=== PATIENT | female | born 1965 | race Caucasian/White ===

== ENCOUNTER 2021-05-16 19:19 | Observation (INO) | payer OTHER, SELFPAY ==
[2021-05-16] VITALS (8 sets, daily range): BP systolic 126–176; BP diastolic 54–77; PULSE 83–120; RESP 14–22; TEMP 39.1; O2SAT 95–96; BMI 27.1
--- NOTE | 2021-05-16 19:10 | ECG_ITS ---
APPROVED REPORT Exam: Resting ECG HR:121 bpm ECG Measurements Heart Rate 121 AXES NM 134 P 69 QRSd 66 QRS 71 QT 306 T 58 QTc 434 Conclusion Sinus tachycardia Otherwise normal ECG Electronically signed by : Joseph Gonzalez MD 05/18/2021 08:58:32
[2021-05-16 19:48] LABS: Coronavirus 19, PCR Not Detected (NotDetected); Influenza A, PCR Not Detected (NotDetected); Influenza B, PCR Not Detected (NotDetected)
[2021-05-16 19:51] LABS: Chloride 102 mmol/L (98-107)
--- NOTE | 2021-05-16 19:51 | XR_ITS ---
PROCEDURE INFORMATION: Exam: XR Chest Exam date and time: 05/16/2021 7:51 PM Age: 55 years old Clinical indication: Fever TECHNIQUE: Imaging protocol: XR of the chest. Views: 1 view. COMPARISON: No relevant prior studies available. FINDINGS: Lungs: Unremarkable. No consolidation. Pleural spaces: Unremarkable. No pleural effusion. No pneumothorax. Heart/Mediastinum: Unremarkable. No cardiomegaly. Bones/joints: Unremarkable. Other findings: Limited inspiration. Lordotic projection. IMPRESSION: No acute findings.
[2021-05-16 19:52] LABS: Potassium 5.6 mmoL/L (3.5-5.1); Sodium 132 mmol/L (136-145)
[2021-05-16 19:54] LABS: Alanine Aminotransferase 38 U/L (12-78); Amylase 52 U/L (30-110); Blood Urea Nitrogen 32 mg/dl (7-17); Creatinine Clearance Estimated 52 mL/min (50-200); Estimated Glomerular Filt Rate 39 ml/min (>60); GFR (African American) 47 ML/MIN (>60)
[2021-05-16 19:55] LABS: Albumin Level 3.9 g/dl (3.5-5.0); Alkaline Phosphatase 385 U/L (38-126); Anion Gap 17.6 mEq/L (5-15); Aspartate Amino Transferase 99 U/L (14-36); Bilirubin,Total 0.5 mg/dl (0.2-1.3); Calcium 9.1 mg/dl (8.4-10.2); Carbon Dioxide 18 mmol/L (22.0-30.0); Globulin 3.8 g/dL (1.3-3.2); Glucose 241 mg/dl (74-100); Lipase 208 U/L (23-300); Total Protein,Serum 7.7 g/dl (6.3-8.2)
[2021-05-16 20:11] LABS: Basophils % 0.2 % (0.1-2.0); Eosinophils # 0.1 K/mm3 (0.0-0.4); Eosinophils % 0.8 % (0.1-12.0); Hematocrit 31.5 % (37.0-47.0); Hemoglobin 9.9 g/dL (12.2-16.2); Lymphocytes # 1.1 K/mm3 (0.7-4.5); Lymphocytes % 6.4 % (10-50); Mean Corpuscular HGB Conc 31.3 g/dL (31.8-35.4); Mean Corpuscular Hemoglobin 26.3 pg (27.0-31.2); Monocytes # 0.5 K/mm3 (0.1-1.0); Neutrophils # 15.7 K/mm3 (1.8-7.8); Neutrophils % 89.6 % (37.0-80.0); Platelet Count 327 K/mm3 (142-424); Red Blood Count 3.75 M/mm3 (4.20-5.40); Red Cell Distribution Width 14.9 % (11.5-17.5); White Blood Count 17.5 K/mm3 (4.8-10.8)
[2021-05-16 20:14] LABS: MANUAL DIFFERENTIAL MANUAL DIFFERENTIAL (MANUAL DIFF)
[2021-05-16 20:15] LABS: Troponin I < 0.01 ng/ml (0.00-0.034)
[2021-05-16 20:23] LABS: Hypochromasia 1+; Lymphocytes % 7 % (10-50); Microcytosis 1+; Monocytes % 3 % (2-9); Neutrophils % 90 % (42-76); Platelet Estimate Normal; Total Cells Counted 100
[2021-05-16 21:16] LABS: Lactic Acid 0.6 mmol/L (0.7-2.1)
[2021-05-16 22:02] LABS: Microscopic, Urine URINE MICROSCOPIC (MICROSCOPIC)
[2021-05-16 22:03] LABS: Appearance,Urine CLEAR (Clear); Bilirubin,Urine Negative (Negative); Blood, Urine 3+ (Negative); Color,Urine YELLOW (Yellow); Glucose,Urine (UA) TRACE (Negative); Ketones,Urine TRACE (Negative); Leukocyte Esterase,Urine 2+ (Negative); Nitrate,Urine Negative (Negative); PH,Urine 5.5 (5.0-8.5); Protein,Urine 3+ (Negative); Specific Gravity, Urine 1.025 (1.005-1.030); Urobilinogen,Urine 0.2 EU/dl (0.2)
[2021-05-16 22:30] LABS: WBC,Urine TNTC #/hpf (0-3)
[2021-05-16 22:31] LABS: Bacteria,Urine 1+ /lpf
--- NOTE | 2021-05-16 23:03 | CT_ITS ---
PROCEDURE INFORMATION: Exam: CT Abdomen And Pelvis With Contrast Exam date and time: 05/16/2021 11:03 PM Age: 55 years old Clinical indication: Other: Hematuria; Additional info: Sepsis, hematuria TECHNIQUE: Imaging protocol: Computed tomography of the abdomen and pelvis with contrast. Radiation optimization: All CT scans at this facility use at least one of these dose optimization techniques: automated exposure control; mA and/or kV adjustment per patient size (includes targeted exams where dose is matched to clinical indication); or iterative reconstruction. Contrast material: ISOVUE; Contrast volume: 60 ml; Contrast route: IV; COMPARISON: CR XR CHEST PORTABLE 05/16/2021 8:53 PM FINDINGS: Lungs: No mass/infiltrate at either lung base. Minimal basilar atelectatic changes. No pleural effusion. Liver: The liver is normal in size and attenuation. No intrahepatic biliary dilitation. Gallbladder and bile ducts: Normal. No calcified stones. No ductal dilation. Gallbladder wall thickness is normal. Pancreas: Normal. No ductal dilation. Spleen: Normal. No splenomegaly. Adrenal glands: Normal. No mass. 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 Stomach and bowel: Unremarkable. No obstruction. No mucosal thickening. Small bowel mesentery is normal. Appendix: Unremarkable. Intraperitoneal space: Unremarkable. No free air. No significant fluid collection. Vasculature: Atheromatous calcification of the aorta , iliac, and femoral arteries noted. No abdominal aortic aneurysm. Lymph nodes: Unremarkable. No enlarged lymph nodes. Urinary bladder: The urinary bladder has a diffusely thickened wall. There is indistinctness of the serosal margin of the bladder. These findings are most compatible with diffuse cystitis. There is no evidence of mural nodularity along the lumen of the bladder. Reproductive: Uterus is not enlarged. It is retroverted. There are small calcifications identified within the substance of the uterus which could either be vascular calcifications or calcific degeneration within small uterine fibroids. Bones/joints: Unremarkable. No acute fracture. Soft tissues: Small umbilical hernia noted. IMPRESSION: 1. Diffuse thickening of the bladder wall which could be on the basis of a cystitis. No evidence of mural thickening along the mucosal surface. 2. Horseshoe kidney identified. 3. Small umbilical hernia.
[2021-05-16 23:47] LABS: Troponin I 0.01 ng/ml (0.00-0.034)
[2021-05-17] VITALS (7 sets, daily range): BP systolic 116–157; BP diastolic 62–73; PULSE 70–88; RESP 14–20; TEMP 36.2–37.2; O2SAT 97–99; BMI 25.8
--- NOTE | 2021-05-17 00:12 | PC.NURSE ---
Dr. Martínez s/w Dr. Das
--- NOTE | 2021-05-17 00:14 | HMH.EDGENADL ---
ED Disposition Clinical Impression: Sepsis Qualifiers: Sepsis type: sepsis due to unspecified organism Sepsis acute organ dysfunction status: with acute organ dysfunction Severe sepsis acute organ dysfunction type: acute renal failure Acute renal failure type: unspecified Severe sepsis shock status: without septic shock Qualified Code(s): A41.9 - Sepsis, unspecified organism UTI (urinary tract infection) Qualifiers: Urinary tract infection type: acute cystitis Hematuria presence: with hematuria Qualified Code(s): N30.01 - Acute cystitis with hematuria Disposition: Admitted As Inpatient Condition on Discharge: Fair Time of Disposition: 00:15 - Critical Care Critical Care Time: No Attestation: On 05/16/21, the high probability of a clinically significant, sudden or life threatening deterioration of the following system(s) required my full and direct attention, intervention and personal management. The time I documented below is in addition to time spent performing reported procedures but includes the following listed in this critical care notation. Medical Decision Making - Medical Records Medical records reviewed: Yes: I reviewed the patient's medical records. - Lauro Inquiry Pt receiving controlled substance: No Vital Signs: 05/16/21 19:17 05/16/21 20:00 05/16/21 20:30 Temperature 102.4 F H Temperature Source Oral Pulse Rate 104 H 97 H Pulse Rate [Right] 120 H Respiratory Rate 19 22 21 Blood Pressure 142/63 H 135/61 Blood Pressure [Right Arm] 176/77 H Blood Pressure Mean Blood Pressure Mean [Right Arm] 110 Blood Pressure Source [Right Arm] Automatic Cuff 02 Sat by Pulse Oximetry 96 95 96 Oxygen Delivery Method Room Air Room Air 05/16/21 21:00 05/16/21 21:43 05/16/21 22:00 Temperature Temperature Source Pulse Rate 93 H 87 87 Pulse Rate [Right] Respiratory Rate 20 17 21 Blood Pressure 126/54 L 132/63 136/61 Blood Pressure [Right Arm] Blood Pressure Mean Blood Pressure Mean [Right Arm] Blood Pressure Source [Right Arm] 02 Sat by Pulse Oximetry 95 96 95 Oxygen Delivery Method Room Air 05/16/21 22:30 05/16/21 23:00 05/17/21 00:00 Temperature 99.0 F Temperature Source Oral Pulse Rate 87 83 73 Pulse Rate [Right] Respiratory Rate 14 15 14 Blood Pressure 138/67 132/66 133/65 Blood Pressure [Right Arm] Blood Pressure Mean 94 Blood Pressure Mean [Right Arm] Blood Pressure Source [Right Arm] 02 Sat by Pulse Oximetry 96 96 97 Oxygen Delivery Method Room Air Room Air 05/17/21 00:52 Temperature 99.0 F Temperature Source Oral Pulse Rate 74 Pulse Rate [Right] Respiratory Rate 15 Blood Pressure 116/62 Blood Pressure [Right Arm] Blood Pressure Mean Blood Pressure Mean [Right Arm] Blood Pressure Source [Right Arm] 02 Sat by Pulse Oximetry Oxygen Delivery Method Room Air - Lab Data Lab results reviewed: Yes: I reviewed the patient's lab results. Lab Results 05/16/21 19:25: WBC 17.5 H, RBC 3.75 L, Hgb 9.9 L, Hct 31.5 L, MCV 84.0, MCH 26.3 L, MCHC 31.3 L, RDW 14.9, Plt Count 327, MPV 9.0, Neut % (Auto) 89.6 H, Lymph % (Auto) 6.4 L, [place] % (Auto) 3.0, Eos % (Auto) 0.8, Baso % (Auto) 0.2, Neut # (Auto) 15.7 H, Lymph # (Auto) 1.1, [place] # (Auto) 0.5, Eos # (Auto) 0.1, Baso # (Auto) 0.0, Total Counted 100, Neutrophils % (Manual) 90 H, Lymphocytes % (Manual) 7 L, Monocytes % (Manual) 3, Platelet Estimate Normal, Hypochromasia 1+, Microcytosis 1+ 05/16/21 19:25: Sodium 132 L, Potassium 5.6 H, Chloride 102, Carbon Dioxide 18 L, Anion Gap 17.6 H, BUN 32 H, Creatinine 1.40 H, Estimated Creat Clear 52, Estimated GFR 39 L, Est GFR ( Amer) 47 L, Glucose 241 H, Calcium 9.1, Total Bilirubin 0.5, AST 99 H, ALT 38, Alkaline Phosphatase 385 H, Troponin I < 0.01, Total Protein 7.7, Albumin 3.9, Globulin 3.8 H, Albumin/Globulin Ratio 1.0 L, Amylase 52, Lipase 208 05/16/21 19:44: SARS-CoV-2 (PCR) Not detected, Influenza A Untype (PCR) Not detected, Influ
--- NOTE | 2021-05-17 00:20 | PC.NURSE ---
House notified on the need for bed assignment
[2021-05-17 00:31] LABS: Acetone, Serum (Rapid) None Detected (None Detect)
[2021-05-17 01:11] LABS: VBG Base Excess -7.8 mmol/L (-2.4-2.3); VBG Oxygen Saturation 98.6 % (50-70); VBG PCO2 34.3 mmol/L (35-51); VBG PH 7.34 mmol/L (7.31-7.41); VBG PO2 143.5 mmol/L (28-40); VBG Total CO2 19.1 mmol/L (23-27)
--- NOTE | 2021-05-17 01:20 | PC.NURSE ---
patient arrived to floor via wheelchair per ER staff
--- NOTE | 2021-05-17 06:08 | PC.NURSE ---
0600 sugar 273, 8 u Humalog given
[2021-05-17 06:10] LABS: POC Glucose,Bedside 273 (70-110)
[2021-05-17 07:09] LABS: Chloride 106 mmol/L (98-107); Sodium 136 mmol/L (136-145)
[2021-05-17 07:10] LABS: Potassium 4.8 mmoL/L (3.5-5.1)
[2021-05-17 07:12] LABS: Anion Gap 14.8 mEq/L (5-15); Blood Urea Nitrogen 28 mg/dl (7-17); Carbon Dioxide 20 mmol/L (22.0-30.0); Creatinine Clearance Estimated 49 mL/min (50-200); Estimated Glomerular Filt Rate 39 ml/min (>60); GFR (African American) 47 ML/MIN (>60)
[2021-05-17 07:13] LABS: Basophils # 0.1 K/mm3 (0-0.2); Basophils % 0.7 % (0.1-2.0); Eosinophils # 0.1 K/mm3 (0.0-0.4); Eosinophils % 0.7 % (0.1-12.0); Glucose 273 mg/dl (74-100); Hematocrit 30.5 % (37.0-47.0); Hemoglobin 9.4 g/dL (12.2-16.2); Lymphocytes # 2.3 K/mm3 (0.7-4.5); Lymphocytes % 22.5 % (10-50); Mean Corpuscular HGB Conc 30.9 g/dL (31.8-35.4); Mean Corpuscular Hemoglobin 26.5 pg (27.0-31.2); Mean Corpuscular Volume 85.8 fl (81-99); Mean Platelet Volume 8.6 fl (7.4-10.4); Monocytes # 0.5 K/mm3 (0.1-1.0); Monocytes % 5.1 % (1.7-9.3); Neutrophils # 7.3 K/mm3 (1.8-7.8); Neutrophils % 71.1 % (37.0-80.0); Platelet Count 314 K/mm3 (142-424); Red Blood Count 3.55 M/mm3 (4.20-5.40); White Blood Count 10.3 K/mm3 (4.8-10.8)
--- NOTE | 2021-05-17 07:23 | P.CONPHA_ITS ---
[facility] Pharmacy VTE Monitoring - Patient Demographics Admission date: 05/17/21 Report Date: 05/17/21 Time: 07:23 Allergies/Adverse Reactions: Patient Allergies No Known Allergies Allergy (Verified 05/16/21 19:42) Height: 1.63 m Weight: 68.209 kg Patient Problems: Current Active Problems Sepsis (Acute) UTI (urinary tract infection) (Acute) - VTE Risk Labs: VTE Related Lab Results Hgb 9.4 g/dL (12.2-16.2) L 05/17/21 06:46 Hct 30.5 % (37.0-47.0) L 05/17/21 06:46 Plt Count 314 K/mm3 (142-424) 05/17/21 06:46 BUN 28 mg/dl (7-17) H 05/17/21 06:46 Creatinine 1.40 mg/dl (0.52-1.04) H 05/17/21 06:46 Estimated Creat Clear 49 mL/min (50-200) 05/17/21 06:46 - Prophylaxis VTE Prophylaxis Ordered?: Yes Types of VTE Prophylaxis: IPCS Thigh High, Pharmacological Location of Applied Device: Bilateral Lower Extremeties Pharmacologic Type: Enoxaparin
--- NOTE | 2021-05-17 07:24 | HMH.PHAINT ---
MEDICATION RECONCILIATION COMPLETED ON PATIENT USING ER NOTE FROM ADMISSION. -MAGDI ELLIS, RAMSESD
--- NOTE | 2021-05-17 07:24 | PC.NURSE ---
Pt arrived to floor at 0120. Pt is qatari speaking. Son is in room translating for her. Pt has voiced no complaints to staff. Has been afebrile t/o shift. Pt was able to ambulate to BR and bathe self during shift. 0600 glucose was 274. 8 u Humalog given. Pt currrently resting in bed, son at bedside. VSS. Will continue to monitor.
--- NOTE | 2021-05-17 08:01 | HMH.PHACONS ---
- Pharmacy Consult Date: 05/17/21 Time: 08:01 Referring provider: DR. HOUSE Reason for Consult:: VANCOMYCIN DOSING Allergies and ADEs:: Allergies Allergy/AdvReac Type Severity Reaction Status Date / Time No Known Allergies Allergy Verified 05/16/21 19:42 Home Medications:: Home Medications Medication Instructions Recorded Confirmed Type Insulin Lispro [Insulin Lispro 50 unit SQ BID 05/16/21 05/16/21 History Kwikpen U-100] Height: 1.63 m Weight: 68.209 kg Laboratory Results:: Laboratory Results - last 24 hr 05/16/21 19:25: WBC 17.5 H, RBC 3.75 L, Hgb 9.9 L, Hct 31.5 L, MCV 84.0, MCH 26.3 L, MCHC 31.3 L, RDW 14.9, Plt Count 327, MPV 9.0, Neut % (Auto) 89.6 H, Lymph % (Auto) 6.4 L, [place] % (Auto) 3.0, Eos % (Auto) 0.8, Baso % (Auto) 0.2, Neut # (Auto) 15.7 H, Lymph # (Auto) 1.1, [place] # (Auto) 0.5, Eos # (Auto) 0.1, Baso # (Auto) 0.0, Total Counted 100, Neutrophils % (Manual) 90 H, Lymphocytes % (Manual) 7 L, Monocytes % (Manual) 3, Platelet Estimate Normal, Hypochromasia 1+, Microcytosis 1+ 05/16/21 19:25: Sodium 132 L, Potassium 5.6 H, Chloride 102, Carbon Dioxide 18 L, Anion Gap 17.6 H, BUN 32 H, Creatinine 1.40 H, Estimated Creat Clear 52, Estimated GFR 39 L, Est GFR ( Amer) 47 L, Glucose 241 H, Calcium 9.1, Total Bilirubin 0.5, AST 99 H, ALT 38, Alkaline Phosphatase 385 H, Troponin I < 0.01, Total Protein 7.7, Albumin 3.9, Globulin 3.8 H, Albumin/Globulin Ratio 1.0 L, Amylase 52, Lipase 208 05/16/21 19:44: SARS-CoV-2 (PCR) Not detected, Influenza A Untype (PCR) Not detected, Influenza Type B (PCR) Not detected 05/16/21 20:55: Lactate 0.6 L 05/16/21 21:47: Urine Color Yellow, Urine Appearance Clear, Urine pH 5.5, Ur Specific [place] 1.025, Urine Protein 3+, Urine Glucose (UA) Trace, Urine Ketones Trace, Urine Blood 3+, Urine Nitrate Negative, Urine Bilirubin Negative, Urine Urobilinogen 0.2, Ur Leukocyte Esterase 2+ A, Urine RBC 3-5, Urine WBC Tntc, Ur Squamous Epith Cells 3-5, Urine Bacteria 1+ 05/16/21 23:09: Troponin I 0.01 05/17/21 00:00: Acetone Level None detected 05/17/21 00:20: VBG pH 7.34, VBG pCO2 34.3 L, VBG pO2 143.5 H, VBG HCO3 18.0 L, VBG Total CO2 19.1 L, VBG O2 Saturation 98.6 H, VBG Base Excess -7.8 L 05/17/21 06:03: POC Glucose 273 H 05/17/21 06:46: WBC 10.3 D, RBC 3.55 L, Hgb 9.4 L, Hct 30.5 L, MCV 85.8, MCH 26.5 L, MCHC 30.9 L, RDW 15.0, Plt Count 314, MPV 8.6, Neut % (Auto) 71.1, Lymph % (Auto) 22.5, [place] % (Auto) 5.1, Eos % (Auto) 0.7, Baso % (Auto) 0.7, Neut # (Auto) 7.3, Lymph # (Auto) 2.3, [place] # (Auto) 0.5, Eos # (Auto) 0.1, Baso # (Auto) 0.1 05/17/21 06:46: Sodium 136, Potassium 4.8, Chloride 106, Carbon Dioxide 20 L, Anion Gap 14.8, BUN 28 H, Creatinine 1.40 H, Estimated Creat Clear 49, Estimated GFR 39 L, Est GFR ( Amer) 47 L, Glucose 273 H, Calcium 9.0 Medical History: Reports:: Diabetes Mellitus Type 2 Denies:: Diabetes Mellitus Type 1 Assessment and Plan - Assessment and plan all Dx Assessment and Plan for all problems:: Objective: Patient: Floor: Age: 55 yo Serum creatinine: 1.4 mg/dL Height: 64.2 Inches Weight (kg): 68.2 Assessment: IBW (kg): 55.16 Dosing wt(kg): 68.2 Estimated Creatinine clearance (ml/min): 39.5 CRCL method: Cockcroft and Gault using ibw(default). Drug selected: Vancomycin Loading dose (mg): 0 Vd (liters): 54.6 (factor used: 0.8 L/kg) George (hr-1): 0.037 Half life (hrs): 18.73 Recommended dose: 1250 mg Interval: 24 hrs Infusion time (hrs): 2.0 Predicted peak (mcg/mL): 37.5 Predicted trough (mcg/mL): 16.62 Total body weight is being used for vancomycin dosing. Recommendations: Give Vancomycin 1250 mg q 24 hrs with an expected Cpeak of 37.5 mcg/ml and an expected Ctrough of 16.62 mcg/ml ----Vanco only - ignore for aminoglycosides----- CLvanco= 2.02 L/hr AUC 0-24 /CHRIS Data:
[2021-05-17 11:29] LABS: POC Glucose,Bedside 277 (70-110)
--- NOTE | 2021-05-17 13:11 | HMH.HPDC ---
General - General Admission date:: 05/17/21 Discharge date: 05/17/21 *Admission Date: 05/17/21 *Chief complaint: uti *History of present illness: 55yr old female evaluated multiple concerns. Patient family states she arrived 2 weeks ago from [place] and since then has been doing well. Yesterday started vomiting and c/o of burning with vomiting. Patient meets sepsis criteria. Patient admitted for uti and sepsis. [facility] History I have reviewed the patient's past medical history: Yes Medical History: Reports:: Diabetes Mellitus Type 2 Denies:: Diabetes Mellitus Type 1 *Have you ever received a pneumonia vaccine?: No *Have you received a flu vaccine this season?: No - *Social History Smoking Status: Never smoker Alcohol Intake: never *Occupational Status:: unemployed Household Members: family, children *Travel in the last 8 weeks: Outside the [facility] Family Hx:: No significant family history Review of Systems - Review of Systems Review of systems:: pertinent systems reviewed and negative unless documented below - Constitutional Reports fatigue, Reports weakness, Denies body ache(s) - Eyes Denies blurry vision - ENT Denies bleeding gums - *Cardiovascular Denies chest pain at rest - *Respiratory Denies chest congestion - *Gastrointestinal Reports abdominal pain, Reports nausea, Reports vomiting - *Genitourinary Denies abnormal periods - *Musculoskeletal Denies joint pain - Integumentary/Breasts Denies bleeding lesions - *Neurologic Denies abnormal speech - Psychiatric Denies lack of enjoyment - Endocrine Denies excessive sweating - Hematologic/Lymphatic Denies easy bruising - Allergic/Immunologic Denies itchy eyes Exam Vital signs and Labs for Last 24 Hours: Temp Pulse Resp BP Pulse Ox 97.2 F L 78 18 138/69 99 05/17/21 08:00 05/17/21 08:00 05/17/21 08:00 05/17/21 08:00 05/17/21 08:00 Laboratory Results - last 24 hr 05/16/21 19:25: WBC 17.5 H, RBC 3.75 L, Hgb 9.9 L, Hct 31.5 L, MCV 84.0, MCH 26.3 L, MCHC 31.3 L, RDW 14.9, Plt Count 327, MPV 9.0, Neut % (Auto) 89.6 H, Lymph % (Auto) 6.4 L, [place] % (Auto) 3.0, Eos % (Auto) 0.8, Baso % (Auto) 0.2, Neut # (Auto) 15.7 H, Lymph # (Auto) 1.1, [place] # (Auto) 0.5, Eos # (Auto) 0.1, Baso # (Auto) 0.0, Total Counted 100, Neutrophils % (Manual) 90 H, Lymphocytes % (Manual) 7 L, Monocytes % (Manual) 3, Platelet Estimate Normal, Hypochromasia 1+, Microcytosis 1+ 05/16/21 19:25: Sodium 132 L, Potassium 5.6 H, Chloride 102, Carbon Dioxide 18 L, Anion Gap 17.6 H, BUN 32 H, Creatinine 1.40 H, Estimated Creat Clear 52, Estimated GFR 39 L, Est GFR ( Amer) 47 L, Glucose 241 H, Calcium 9.1, Total Bilirubin 0.5, AST 99 H, ALT 38, Alkaline Phosphatase 385 H, Troponin I < 0.01, Total Protein 7.7, Albumin 3.9, Globulin 3.8 H, Albumin/Globulin Ratio 1.0 L, Amylase 52, Lipase 208 05/16/21 19:44: SARS-CoV-2 (PCR) Not detected, Influenza A Untype (PCR) Not detected, Influenza Type B (PCR) Not detected 05/16/21 20:55: Lactate 0.6 L 05/16/21 21:47: Urine Color Yellow, Urine Appearance Clear, Urine pH 5.5, Ur Specific [place] 1.025, Urine Protein 3+, Urine Glucose (UA) Trace, Urine Ketones Trace, Urine Blood 3+, Urine Nitrate Negative, Urine Bilirubin Negative, Urine Urobilinogen 0.2, Ur Leukocyte Esterase 2+ A, Urine RBC 3-5, Urine WBC Tntc, Ur Squamous Epith Cells 3-5, Urine Bacteria 1+ 05/16/21 23:09: Troponin I 0.01 05/17/21 00:00: Acetone Level None detected 05/17/21 00:20: VBG pH 7.34, VBG pCO2 34.3 L, VBG pO2 143.5 H, VBG HCO3 18.0 L, VBG Total CO2 19.1 L, VBG O2 Saturation 98.6 H, VBG Base Excess -7.8 L 05/17/21 06:03: POC Glucose 273 H 05/17/21 06:46: WBC 10.3 D, RBC 3.55 L, Hgb 9.4 L, Hct 30.5 L, MCV 85.8, MCH 26.5 L, MCHC 30.9 L, RDW 15.0, Plt Count 314, MPV 8.6, Neut % (Auto) 71.1, Lymph % (Auto) 22.5, [place] % (Auto) 5.1, Eos % (Auto) 0.7, Baso % (Auto) 0.7, Neut # (Auto) 7.3, Lymph # (Auto) 2.3, [place] # (Auto) 0.5, Eos # (Auto) 0.1,
== END 2021-05-17 14:15 | disposition home or self-care (01) ==
LOC: ER 05-17 00:15 → 2ND 05-17 01:52
PROVIDERS: Emergency Medicine; Admitting Provider Family Medicine; Emergency Provider Family Medicine; Visit Provider Family Medicine
DX: N39.0 Urinary tract infection, site not specified (principal); Z20.822 Contact with and (suspected) exposure to COVID-19; E11.9 Type 2 diabetes mellitus without complications; Z79.4 Long term (current) use of insulin
CPT/HCPCS: 71045; 74177; 80048; 80053; 81001; 82009; 82150; 82803; 82962; 83605; 83690; 84484; 85007; 85025; 87040; 87086; 93005; 96365; 96366; 96367; 99285; C9803; G0378; J1956; J3370; Q9967; U0003; U0005

== ENCOUNTER 2021-12-16 22:22 | Inpatient (IN) | payer OTHER, SELFPAY ==
[2021-12-16 22:24] VITALS: BP 136/70; PULSE 117; RESP 17; TEMP 38.2; O2SAT 98; BMI 25.8
--- NOTE | 2021-12-16 22:55 | HMH.EDNVD ---
ED Disposition Clinical Impression: Severe sepsis with acute organ dysfunction, Diabetes mellitus, insulin dependent (IDDM), uncontrolled, EDD (acute kidney injury) UTI (urinary tract infection) Qualifiers: Urinary tract infection type: acute cystitis Hematuria presence: without hematuria Qualified Code(s): N30.00 - Acute cystitis without hematuria Disposition: Admitted As Inpatient Condition on Discharge: Serious Instructions: DI for Acute Abdominal Pain Referrals: Provider,Referral, MD [Primary Care Provider] - - Critical Care Critical Care Time: No Attestation: On 12/16/21, the high probability of a clinically significant, sudden or life threatening deterioration of the following system(s) required my full and direct attention, intervention and personal management. The time I documented below is in addition to time spent performing reported procedures but includes the following listed in this critical care notation. Medical Decision Making - Medical Records Medical records reviewed: Yes: I reviewed the patient's medical records. - Lauro Inquiry Pt receiving controlled substance: No Vital Signs: 12/16/21 22:24 Temperature 100.8 F H Temperature Source Oral Pulse Rate [Left Radial] 117 H Respiratory Rate 17 Blood Pressure [Right Arm] 136/70 Blood Pressure Mean [Right Arm] 92 02 Sat by Pulse Oximetry 98 Oxygen Delivery Method Room Air - Lab Data Lab results reviewed: Yes: I reviewed the patient's lab results. Lab Results 12/16/21 22:30: Urine Color Yellow, Urine Appearance Slightly cloudy, Urine pH 7.0, Ur Specific [place] 1.025, Urine Protein 3+, Urine Glucose (UA) 2+, Urine Ketones Negative, Urine Blood 1+, Urine Nitrate Negative, Urine Bilirubin Negative, Urine Urobilinogen 0.2, Ur Leukocyte Esterase 1+ A, Urine RBC 3-5, Urine WBC 20-50, Ur Squamous Epith Cells 5-10, Urine Bacteria 4+, Urine Mucus 1+ 12/16/21 22:30: Urine HCG, Qual Negative 12/16/21 22:30: Urine Opiates Screen Negative, Urine Methadone Screen Negative, Ur Barbituates Screen Negative, Ur Phencyclidine Scrn Negative, Ur Amphetamines Screen Negative, U Benzodiazepines Scrn Negative, Urine Cocaine Screen Negative, U Marijuana (THC) Screen Negative 12/16/21 23:11: WBC 15.5 H, RBC 4.01 L, Hgb 11.0 L, Hct 33.8 L, MCV 84.2, MCH 27.4, MCHC 32.6, RDW 15.2, Plt Count 353, MPV 9.1, Neut % (Auto) 85.6 H, Lymph % (Auto) 10.1, [place] % (Auto) 3.7, Eos % (Auto) 0.0 L, Baso % (Auto) 0.5, Neut # (Auto) 13.3 H, Lymph # (Auto) 1.6, [place] # (Auto) 0.6, Eos # (Auto) 0.0, Baso # (Auto) 0.1, Total Counted 100, Neutrophils % (Manual) 88 H, Lymphocytes % (Manual) 11, Monocytes % (Manual) 1 L, Platelet Estimate Normal, RBC Morphology Normal, ESR 129 H 12/16/21 23:11: Lactate 2.0 12/16/21 23:11: C-Reactive Protein 142.4 H, Amylase 61, Procalcitonin 1.98 12/16/21 23:11: Sodium 132 L, Potassium 5.3 H, Chloride 95 L, Carbon Dioxide 24, Anion Gap 18.3 H, BUN 41 H, Creatinine 2.00 H, Estimated Creat Clear 36, Estimated GFR 26 L, Est GFR ( Amer) 31 L, Glucose 504 H*, Calcium 9.7, Total Bilirubin 0.4, AST 21, ALT 21, Alkaline Phosphatase 221 H, Total Protein 8.0, Albumin 4.1, Globulin 3.9 H, Albumin/Globulin Ratio 1.1, Lipase 106, Acetone Level None detected 12/16/21 23:11: Hemoglobin A1c 10.0 H 12/16/21 23:15: SARS-CoV-2 (PCR) Not detected, Influenza A Untype (PCR) Not detected, Influenza Type B (PCR) Not detected Result diagrams: 12/16/21 23:11 12/16/21 23:11 Orders (Tests/Meds): ED MEDICATIONS Generic Name Dose Route Start Last Admin Trade Name Freq PRN Reason Stop Dose Admin Sodium Chloride 1,000 mls @ 999 mls/hr 12/16/21 23:00 12/16/21 22:58 Sod Chlor 0.9% 1000ml Bag IV 12/17/21 00:00 999 mls/hr .Q1H1M LAURA Administration Ceftriaxone Sodium 1 gm/ 50 mls @ 100 mls/hr 12/16/21 23:45 12/17/21 00:13 Sodium Chloride IV 12/30/21 23:44 100 mls/hr Q24H LAURA Administration Discontinued Medications Generic Name Dose Route Start Last Admin Tra
[2021-12-16 23:18] VITALS: BP 174/78; PULSE 99; O2SAT 98
[2021-12-16 23:21] LABS: Microscopic, Urine URINE MICROSCOPIC (MICROSCOPIC)
[2021-12-16 23:23] LABS: Coronavirus 19, PCR Not Detected (NotDetected); Influenza A, PCR Not Detected (NotDetected); Influenza B, PCR Not Detected (NotDetected)
[2021-12-16 23:30] VITALS: BP 148/73; PULSE 99; O2SAT 95
[2021-12-16 23:30] LABS: Basophils # 0.1 K/mm3 (0-0.2); Basophils % 0.5 % (0.1-2.0); Hematocrit 33.8 % (37.0-47.0); Lymphocytes # 1.6 K/mm3 (0.7-4.5); Lymphocytes % 10.1 % (10-50); Mean Corpuscular HGB Conc 32.6 g/dL (31.8-35.4); Mean Corpuscular Hemoglobin 27.4 pg (27.0-31.2); Mean Corpuscular Volume 84.2 fl (81-99); Mean Platelet Volume 9.1 fl (7.4-10.4); Monocytes # 0.6 K/mm3 (0.1-1.0); Monocytes % 3.7 % (1.7-9.3); Neutrophils # 13.3 K/mm3 (1.8-7.8); Neutrophils % 85.6 % (37.0-80.0); Platelet Count 353 K/mm3 (142-424); Red Blood Count 4.01 M/mm3 (4.20-5.40); Red Cell Distribution Width 15.2 % (11.5-17.5); White Blood Count 15.5 K/mm3 (4.8-10.8)
[2021-12-16 23:34] LABS: Bilirubin,Urine Negative (Negative); Blood, Urine 1+ (Negative); Color,Urine YELLOW (Yellow); Glucose,Urine (UA) 2+ (Negative); Ketones,Urine Negative (Negative); Leukocyte Esterase,Urine 1+ (Negative); Nitrate,Urine Negative (Negative); Protein,Urine 3+ (Negative); Specific Gravity, Urine 1.025 (1.005-1.030); Urobilinogen,Urine 0.2 EU/dl (0.2)
[2021-12-16 23:35] LABS: Amylase 61 U/L (30-110)
[2021-12-16 23:36] LABS: Alanine Aminotransferase 21 U/L (12-78); Albumin Level 4.1 g/dl (3.5-5.0); Albumin/Globulin Ratio 1.1 (1.1-1.8); Alkaline Phosphatase 221 U/L (38-126); Anion Gap 18.3 mEq/L (5-15); Aspartate Amino Transferase 21 U/L (14-36); Bilirubin,Total 0.4 mg/dl (0.2-1.3); Blood Urea Nitrogen 41 mg/dl (7-17); Calcium 9.7 mg/dl (8.4-10.2); Carbon Dioxide 24 mmol/L (22.0-30.0); Chloride 95 mmol/L (98-107); Creatinine Clearance Estimated 36 mL/min (50-200); Estimated Glomerular Filt Rate 26 ml/min (>60); GFR (African American) 31 ML/MIN (>60); Globulin 3.9 g/dL (1.3-3.2); Lipase 106 U/L (23-300); Potassium 5.3 mmoL/L (3.5-5.1); Sodium 132 mmol/L (136-145)
[2021-12-16 23:36] LABS: Appearance,Urine Slightly Cloudy (Clear)
[2021-12-16 23:37] LABS: MANUAL DIFFERENTIAL MANUAL DIFFERENTIAL (MANUAL DIFF)
[2021-12-16 23:39] LABS: Glucose 504 mg/dl (74-100)
[2021-12-16 23:40] LABS: C-Reactive Protein 142.4 mg/L (0-4)
[2021-12-16 23:42] LABS: Urine Pregnancy, HCG Qual. Negative (Negative)
[2021-12-16 23:42] LABS: Acetone, Serum (Rapid) None Detected (None Detect)
[2021-12-16 23:48] LABS: Bacteria,Urine 4+ /lpf; Mucus,Urine 1+ /lpf; WBC,Urine 20-50 #/hpf (0-3)
[2021-12-16 23:49] LABS: Amphetamine/Metha Screen,Urine Negative ng/ml (<1000)
[2021-12-16 23:50] LABS: Barbiturates Screen,Urine Negative ng/ml (<200); Benzodiazepines Screen,Urine Negative ng/ml (<200)
[2021-12-16 23:51] LABS: Cannabinoid Screen,Urine Negative ng/ml (<50)
[2021-12-16 23:52] LABS: Methadone Screen,Urine Negative ng/ml (<300)
[2021-12-16 23:53] LABS: Opiate Screen,Urine Negative ng/ml (<300); Phencyclidine Screen,Urine Negative ng/ml (<25)
[2021-12-16 23:54] LABS: Procalcitonin 1.98 ng/mL (0.0-2.0)
[2021-12-17] VITALS (11 sets, daily range): BP systolic 124–185; BP diastolic 56–88; PULSE 77–107; RESP 15–18; TEMP 36.5–37.9; O2SAT 94–98; BMI 23.6
--- NOTE | 2021-12-17 | CT_ITS ---
PROCEDURE INFORMATION: Exam: CT Abdomen And Pelvis Without Contrast Exam date and time: 12/17/2021 12:02 AM Age: 55 years old Clinical indication: Abdominal pain; Localized; Lower TECHNIQUE: Imaging protocol: Computed tomography of the abdomen and pelvis without contrast. Radiation optimization: All CT scans at this facility use at least one of these dose optimization techniques: automated exposure control; mA and/or kV adjustment per patient size (includes targeted exams where dose is matched to clinical indication); or iterative reconstruction. COMPARISON: CT ABDOMEN PELVIS W CON 05/16/2021 11:19 PM FINDINGS: Liver: Normal. No mass. Gallbladder and bile ducts: Punctate gallstone. Pancreas: Normal. No ductal dilation. Spleen: Normal. No splenomegaly. Adrenal glands: Normal. No mass. Kidneys and ureters: Horseshoe configuration of the kidneys. There is a small amount of gas in the proximal right ureter. The right ureter is dilated but no stones are present. Small amount of gas in the proximal left ureter. Stomach and bowel: Unremarkable. No obstruction. No mucosal thickening. Appendix: Normal appendix. Intraperitoneal space: Unremarkable. No free air. No significant fluid collection. Vasculature: Unremarkable. No abdominal aortic aneurysm. Lymph nodes: Unremarkable. No enlarged lymph nodes. Urinary bladder: Urinary bladder wall thickening and surrounding inflammatory changes. There is air-fluid level in the urinary bladder. Cannot exclude severe cystitis versus recent Warner catheter placement. Reproductive: Unremarkable as visualized. Bones/joints: Unremarkable. No acute fracture. Soft tissues: Unremarkable. IMPRESSION: 1. Urinary bladder wall thickening and surrounding inflammatory changes. There is air-fluid level in the urinary bladder. Cannot exclude severe cystitis versus recent Warner catheter placement. 2. Bilateral pyelonephritis cannot be ruled out. Small amount of gas in bilateral proximal ureters. Horseshoe configuration of the kidneys.
[2021-12-17 00:01] LABS: Erythrocyte Sedimentation Rate 129 mm/hr (0-30)
[2021-12-17 00:04] LABS: Cocaine Screen,Urine Negative ng/ml (<300)
[2021-12-17 00:35] LABS: Lymphocytes % 11 % (10-50); Monocytes % 1 % (2-9); Neutrophils % 88 % (42-76); RBC Morphology Normal; Total Cells Counted 100
[2021-12-17 00:36] LABS: Platelet Estimate Normal
[2021-12-17 01:02] LABS: POC Glucose,Bedside 382 (70-110)
--- NOTE | 2021-12-17 01:29 | PC.NURSE ---
PT ARRIVED TO FLOOR VIA W/C FROM ED W/STAFF @ [id number]
--- NOTE | 2021-12-17 04:37 | PC.NURSE ---
Patient has rested well this RN's shift. Patient has remained on room air. Patient has voiced no complaints. Son remains at bedside.
[2021-12-17 05:34] LABS: POC Glucose,Bedside 350 (70-110)
[2021-12-17 06:14] LABS: Basophils # 0.1 K/mm3 (0-0.2); Basophils % 0.5 % (0.1-2.0); Eosinophils % 0.3 % (0.1-12.0); Hematocrit 29.5 % (37.0-47.0); Lymphocytes # 2.1 K/mm3 (0.7-4.5); Lymphocytes % 17.8 % (10-50); Mean Corpuscular HGB Conc 32.9 g/dL (31.8-35.4); Mean Corpuscular Hemoglobin 27.9 pg (27.0-31.2); Mean Corpuscular Volume 84.8 fl (81-99); Mean Platelet Volume 9.1 fl (7.4-10.4); Monocytes # 0.5 K/mm3 (0.1-1.0); Monocytes % 4.4 % (1.7-9.3); Neutrophils % 77.1 % (37.0-80.0); Platelet Count 295 K/mm3 (142-424); Red Blood Count 3.48 M/mm3 (4.20-5.40); Red Cell Distribution Width 15.4 % (11.5-17.5); White Blood Count 11.6 K/mm3 (4.8-10.8)
[2021-12-17 06:25] LABS: Hemoglobin 9.7 g/dL (12.2-16.2)
[2021-12-17 06:49] LABS: Anion Gap 14.7 mEq/L (5-15); Blood Urea Nitrogen 43 mg/dl (7-17); Calcium 8.8 mg/dl (8.4-10.2); Carbon Dioxide 23 mmol/L (22.0-30.0); Chloride 101 mmol/L (98-107); Creatinine Clearance Estimated 34 mL/min (50-200); Estimated Glomerular Filt Rate 26 ml/min (>60); GFR (African American) 31 ML/MIN (>60); Glucose 353 mg/dl (74-100); Magnesium 1.7 mg/dl (1.6-2.3); Potassium 4.7 mmoL/L (3.5-5.1); Sodium 134 mmol/L (136-145)
--- NOTE | 2021-12-17 07:44 | HMH.PHAVTE ---
[facility] Pharmacy VTE Monitoring - Patient Demographics Admission date: 12/17/21 Report Date: 12/17/21 Time: 07:44 Allergies/Adverse Reactions: Patient Allergies No Known Allergies Allergy (Verified 06/03/21 14:06) Height: 1.68 m Weight: 66.82 kg Patient Problems: Current Active Problems Severe sepsis with acute organ dysfunction (Acute) Diabetes mellitus, insulin dependent (IDDM), uncontrolled (Acute) EDD (acute kidney injury) (Acute) UTI (urinary tract infection) (Acute) - VTE Risk Labs: VTE Related Lab Results Hgb 9.7 g/dL (12.2-16.2) L D 12/17/21 05:33 Hct 29.5 % (37.0-47.0) L 12/17/21 05:33 Plt Count 295 K/mm3 (142-424) 12/17/21 05:33 BUN 43 mg/dl (7-17) H 12/17/21 05:33 Creatinine 2.00 mg/dl (0.52-1.04) H 12/17/21 05:33 Estimated Creat Clear 34 mL/min (50-200) 12/17/21 05:33 Was VTE Risk Assessment Performed: Yes VTE Score: 1 Clinical Trial Participant: No - Prophylaxis VTE Prophylaxis Ordered?: Yes Types of VTE Prophylaxis: TEDS Knee High
[2021-12-17 09:46] LABS: Acetone, Serum (Rapid) None Detected (None Detect)
--- NOTE | 2021-12-17 10:34 | CT_ITS ---
FINAL REPORT TECHNIQUE: Axial images through the abdomen and pelvis were performed without contrast. This study was performed with techniques to keep radiation doses as low as reasonably achievable, (ALARA). Individualized dose reduction techniques using automated exposure control or adjustment of mA and/or kV according to the patient's size were employed. CLINICAL HISTORY: Air in bladder on prev COMPARISON: 12/17/2021 FINDINGS: ABDOMEN: There is mild bibasilar atelectasis. The heart size is normal. Limited images of the liver are unremarkable. A gallstone is identified. The spleen is normal. No adrenal mass is identified. The aorta is normal in caliber. There is no significant free fluid or adenopathy. 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 There is a small amount of air in the left renal pelvis, similar to previous. There is no nephrolithiasis. There is no hydronephrosis. There is a small umbilical hernia containing fat. PELVIS: The appendix is unremarkable. There is diffuse wall thickening of the urinary bladder. A Warner catheter is noted. There is a small amount of residual air in the bladder. There is no significant free fluid or adenopathy. IMPRESSION: Diffuse bladder wall thickening consistent with inflammatory change. Interval placement of a Warner catheter with improved but persistent residual air in the bladder. Cholelithiasis. Reviewed, Interpreted and Dictated by Jayme Partida III, MD Transcribed by Dionna Mendez Authenticated by Jayme Partida III, MD on 12/17/2021 12:32:54 PM [facility]
--- NOTE | 2021-12-17 13:07 | HMH.HP ---
*Admission Date: 12/17/21 *Chief complaint: Nausea vomiting *History of present illness: 55-year-old Irish-speaking female patient presented to the [facility] emergency department for reports of nausea and vomiting, decreased p.o. intake, and history of diabetes. She reports she is only been in [place] for 3 weeks. Glucose in the emergency department is greater than 500, she received 10 units of regular insulin IV. She also received ceftriaxone 1 g, Toradol 30 mg and Zofran 4 mg Abdomen/pelvis CT revealed Urinary bladder wall thickening and surrounding inflammatory changes. There is air-fluid level in the urinary bladder. Cannot exclude severe cystitis versus recent Warner catheter placement. 2. Bilateral pyelonephritis cannot be ruled out. Small amount of gas in bilateral proximal ureters. Horseshoe configuration of the kidneys. Urology consulted [facility] History I have reviewed the patient's past medical history: Yes Medical History: Reports:: Diabetes Mellitus Type 2, Hyperlipidemia, Hypertension Denies:: Cancer, Diabetes Mellitus Type 1, MRSA *Have you ever received a pneumonia vaccine?: No *Have you received a flu vaccine this season?: Yes Other Surgeries: Yes: Amputation: No Fractures: No - *Social History Last grade of school completed: 9th or 10th Smoking Status: Never smoker Alcohol Intake: never *Occupational Status:: unemployed Housing: house Household Members: children *Travel in the last 8 weeks: Outside the [facility] Family Hx:: Diabetes Review of Systems - Review of Systems Review of systems:: pertinent systems reviewed and negative unless documented below - Constitutional Denies body ache(s), Denies fatigue - Eyes Denies blurry vision, Denies change in vision - ENT Denies abnormal hearing, Denies dizziness - *Cardiovascular Denies chest pain, Denies shortness of breath - *Respiratory Denies chest congestion, Denies shortness of breath - *Gastrointestinal Reports abdominal pain, Reports nausea, Reports vomiting, Denies vomiting blood - *Musculoskeletal Denies back pain, Denies muscle weakness - *Neurologic Reports weakness, Denies seizure-like activity - Psychiatric Denies anxiety, Denies change in appetite - Endocrine Denies cold intolerance, Denies excessive sweating - Hematologic/Lymphatic Denies easy bleeding, Denies easy bruising - Allergic/Immunologic Denies GI upset with certain foods, Denies tongue swelling Meds Home Medications Medication Instructions Recorded Confirmed Type Insulin Lispro [Insulin Lispro 50 unit SQ BID 10/14/21 05/16/22 History Kwikpen U-100] Fluoxetine HCl [Prozac] 20 mg PO DAILY 12/16/21 12/16/21 History Ferrous Sulfate 325 mg PO DAILY 12/17/21 12/17/21 History Allergies Allergy/AdvReac Type Severity Reaction Status Date / Time No Known Allergies Allergy Verified 06/03/21 14:06 Exam Vital signs and Labs for Last 24 Hours: Temp Pulse Resp BP Pulse Ox 100.2 F H 102 H 15 127/61 94 L 12/17/21 12:00 12/17/21 12:00 12/17/21 12:00 12/17/21 12:00 12/17/21 12:00 Laboratory Results - last 24 hr 12/16/21 22:30: Urine Color Yellow, Urine Appearance Slightly cloudy, Urine pH 7.0, Ur Specific [place] 1.025, Urine Protein 3+, Urine Glucose (UA) 2+, Urine Ketones Negative, Urine Blood 1+, Urine Nitrate Negative, Urine Bilirubin Negative, Urine Urobilinogen 0.2, Ur Leukocyte Esterase 1+ A, Urine RBC 3-5, Urine WBC 20-50, Ur Squamous Epith Cells 5-10, Urine Bacteria 4+, Urine Mucus 1+ 12/16/21 22:30: Urine HCG, Qual Negative 12/16/21 22:30: Urine Opiates Screen Negative, Urine Methadone Screen Negative, Ur Barbituates Screen Negative, Ur Phencyclidine Scrn Negative, Ur Amphetamines Screen Negative, U Benzodiazepines Scrn Negative, Urine Cocaine Screen Negative, U Marijuana (THC) Screen Negative 12/16/21 23:11: WBC 15.5 H, RBC 4.01 L, Hgb 11.0 L, Hct 33.8 L, MCV 84.2, MCH 27.4, M
--- NOTE | 2021-12-17 14:21 | HMH.CONS ---
*Admission Date: 12/17/21 *Reason for consult:: Cystitis/pyelonephritis *History of present illness: Patient is a 55-year-old Azerbaijani female was admitted to the hospital early this morning with complaints of dysuria and nausea for 3 weeks. She does have a history of diabetes insulin-dependent. CT scan was performed showed evidence of a horseshoe kidney. There was a small amount of gas proximal ureters but no evidence of stones. Urinary bladder showed some concentric wall thickening and inflammatory changes fluid level in the bladder consistent with severe cystitis. She had a CT scan. [facility] in May 2021 which showed a thickened bladder at that time as well. Creatinine is 2.0 and her white 6. Her urinalysis showed 3+ protein and 2+ glucose trace. 4+ bacteria was present. A CT scan was repeated today and review showed the previously noted air in the right proximal ureter had resolved but there was still air in the left proximal ureter and air in the bladder around the Warner catheter that had been placed. Her urine is henok color in her Warner bag. She does not speak Malay. Her T-max today is 100.4. She does not appear toxic. [facility] History Medical History: Reports:: Diabetes Mellitus Type 2, Hyperlipidemia, Hypertension Denies:: Cancer, Diabetes Mellitus Type 1, MRSA *Have you ever received a pneumonia vaccine?: No *Have you received a flu vaccine this season?: Yes Other Surgeries: Yes: Amputation: No Fractures: No - *Social History Last grade of school completed: 9th or 10th Smoking Status: Never smoker Alcohol Intake: never *Occupational Status:: unemployed Housing: house Household Members: children *Travel in the last 8 weeks: Outside the [facility] Family Hx:: Diabetes Review of Systems - *Neurologic Reports weakness, Denies abnormal hearing, Denies dizziness, Denies seizure-like activity Meds Home Medications Medication Instructions Recorded Confirmed Type Insulin Lispro [Insulin Lispro 50 unit SQ BID 05/16/21 12/16/21 History Kwikpen U-100] Fluoxetine HCl [Prozac] 20 mg PO DAILY 12/16/21 12/16/21 History Ferrous Sulfate 325 mg PO DAILY 12/17/21 12/17/21 History Allergies Allergy/AdvReac Type Severity Reaction Status Date / Time No Known Allergies Allergy Verified 06/03/21 14:06 Exam Vital signs and Labs for Last 24 Hours: Temp Pulse Resp BP Pulse Ox 100.2 F H 102 H 15 127/61 94 L 12/17/21 12:00 12/17/21 12:00 12/17/21 12:00 12/17/21 12:00 12/17/21 12:00 Laboratory Results - last 24 hr 12/16/21 22:30: Urine Color Yellow, Urine Appearance Slightly cloudy, Urine pH 7.0, Ur Specific [place] 1.025, Urine Protein 3+, Urine Glucose (UA) 2+, Urine Ketones Negative, Urine Blood 1+, Urine Nitrate Negative, Urine Bilirubin Negative, Urine Urobilinogen 0.2, Ur Leukocyte Esterase 1+ A, Urine RBC 3-5, Urine WBC 20-50, Ur Squamous Epith Cells 5-10, Urine Bacteria 4+, Urine Mucus 1+ 12/16/21 22:30: Urine HCG, Qual Negative 12/16/21 22:30: Urine Opiates Screen Negative, Urine Methadone Screen Negative, Ur Barbituates Screen Negative, Ur Phencyclidine Scrn Negative, Ur Amphetamines Screen Negative, U Benzodiazepines Scrn Negative, Urine Cocaine Screen Negative, U Marijuana (THC) Screen Negative 12/16/21 23:11: WBC 15.5 H, RBC 4.01 L, Hgb 11.0 L, Hct 33.8 L, MCV 84.2, MCH 27.4, MCHC 32.6, RDW 15.2, Plt Count 353, MPV 9.1, Neut % (Auto) 85.6 H, Lymph % (Auto) 10.1, [place] % (Auto) 3.7, Eos % (Auto) 0.0 L, Baso % (Auto) 0.5, Neut # (Auto) 13.3 H, Lymph # (Auto) 1.6, [place] # (Auto) 0.6, Eos # (Auto) 0.0, Baso # (Auto) 0.1, Total Counted 100, Neutrophils % (Manual) 88 H, Lymphocytes % (Manual) 11, Monocytes % (Manual) 1 L, Platelet Estimate Normal, RBC Morphology Normal, ESR 129 H 12/16/21 23:11: Lactate 2.0 12/16/21 23:11: C-Reactive Protein 142.4 H, Amylase 61, Procalcitonin 1.98 12/16/21 23:11: Sodium 132 L, Potassium 5.3 H, Chloride 95 L, Carbon Dioxide 24, Anion Gap 18.3 H,
[2021-12-18] VITALS: BP 159/69; PULSE 91; RESP 18; TEMP 37.7; O2SAT 95
[2021-12-18 03:54] VITALS: BP 164/71; PULSE 87; RESP 18; TEMP 37.5; O2SAT 96
[2021-12-18 05:12] VITALS: BMI 23.5
--- NOTE | 2021-12-18 05:24 | PC.NURSE ---
No acute changes. Pt has not voiced any complaints to staff thus far. Son at bedside. Call light within reach.
[2021-12-18 07:01] LABS: Basophils % 0.3 % (0.1-2.0); Eosinophils # 0.1 K/mm3 (0.0-0.4); Eosinophils % 1.1 % (0.1-12.0); Hematocrit 29.4 % (37.0-47.0); Hemoglobin 9.6 g/dL (12.2-16.2); Lymphocytes # 2.1 K/mm3 (0.7-4.5); Lymphocytes % 22.5 % (10-50); Mean Corpuscular HGB Conc 32.6 g/dL (31.8-35.4); Mean Corpuscular Hemoglobin 27.4 pg (27.0-31.2); Mean Corpuscular Volume 84.1 fl (81-99); Mean Platelet Volume 8.7 fl (7.4-10.4); Monocytes # 0.5 K/mm3 (0.1-1.0); Monocytes % 5.4 % (1.7-9.3); Neutrophils # 6.5 K/mm3 (1.8-7.8); Neutrophils % 70.7 % (37.0-80.0); Platelet Count 257 K/mm3 (142-424); Red Blood Count 3.49 M/mm3 (4.20-5.40); White Blood Count 9.2 K/mm3 (4.8-10.8)
[2021-12-18 07:16] LABS: Blood Urea Nitrogen 27 mg/dl (7-17); Calcium 8.9 mg/dl (8.4-10.2); Carbon Dioxide 26 mmol/L (22.0-30.0); Chloride 103 mmol/L (98-107); Creatinine Clearance Estimated 48 mL/min (50-200); Estimated Glomerular Filt Rate 39 ml/min (>60); GFR (African American) 47 ML/MIN (>60); Glucose 179 mg/dl (74-100); Sodium 137 mmol/L (136-145)
[2021-12-18 08:00] VITALS: BP 166/69; PULSE 91; RESP 20; TEMP 36.8; O2SAT 97
[2021-12-18 09:14] LABS: POC Glucose,Bedside 132 (70-110)
[2021-12-18 09:14] LABS: POC Glucose,Bedside 237 (70-110)
[2021-12-18 09:14] LABS: POC Glucose,Bedside 206 (70-110)
[2021-12-18 09:14] LABS: POC Glucose,Bedside 169 (70-110)
--- NOTE | 2021-12-18 09:47 | HMH.ACPN2 ---
<Fernie Ellison - Last Filed: 12/18/21 19:45> Internal Medicine - PN: Subj *Date: 12/18/21 *Time: 19:45 Interval history: 55-year-old Namibian-speaking female patient resting in bed quietly, she appears better today than yesterday. She did call her son for a video phone call and son translated that she is feeling better with less nausea and less stomach pain. He reports that she does have medications from [place] that he will bring in and check in to pharmacy. Both blood culture bottles pulmonary showing gram-negative rods and she is receiving ertapenem IV Exam Vital signs and Labs for Last 24 Hours: Temp Pulse Resp BP Pulse Ox 99.5 F 87 18 164/71 H 96 12/18/21 03:54 12/18/21 03:54 12/18/21 03:54 12/18/21 03:54 12/18/21 03:54 Laboratory Results - last 24 hr 12/16/21 22:30: Urine Color Yellow, Urine Appearance Slightly cloudy, Urine pH 7.0, Ur Specific [place] 1.025, Urine Protein 3+, Urine Glucose (UA) 2+, Urine Ketones Negative, Urine Blood 1+, Urine Nitrate Negative, Urine Bilirubin Negative, Urine Urobilinogen 0.2, Ur Leukocyte Esterase 1+ A, Urine RBC 3-5, Urine WBC 20-50, Ur Squamous Epith Cells 5-10, Urine Bacteria 4+, Urine Mucus 1+ 12/17/21 12:10: POC Glucose 237 H 12/17/21 17:08: POC Glucose 132 H 12/17/21 20:07: POC Glucose 206 H 12/18/21 06:34: POC Glucose 169 H 12/18/21 06:41: WBC 9.2, RBC 3.49 L, Hgb 9.6 L, Hct 29.4 L, MCV 84.1, MCH 27.4, MCHC 32.6, RDW 15.0, Plt Count 257, MPV 8.7, Neut % (Auto) 70.7, Lymph % (Auto) 22.5, [place] % (Auto) 5.4, Eos % (Auto) 1.1, Baso % (Auto) 0.3, Neut # (Auto) 6.5, Lymph # (Auto) 2.1, [place] # (Auto) 0.5, Eos # (Auto) 0.1, Baso # (Auto) 0.0 12/18/21 06:41: Sodium 137, Potassium 4.0, Chloride 103, Carbon Dioxide 26, Anion Gap 12.0, BUN 27 H D, Creatinine 1.40 H D, Estimated Creat Clear 48, Estimated GFR 39 L, Est GFR ( Amer) 47 L D, Glucose 179 H, Calcium 8.9 I & O for Last 24 hours: Intake & Output 12/15/21 12/16/21 12/17/21 12/18/21 23:59 23:59 23:59 23:59 Intake Total 3206 / 3206 2185 / 2185 Output Total 500 / 1250 1370 / 1370 Balance 2706 / 1956 815 / 815 Weight 160 lb 147 lb 5.006 oz 146 lb 7 oz Microbiology Reports for the Last 24 Hours: Microbiology 12/16/21 23:11 Blood Blood Culture - Preliminary Gram Negative Rods 12/16/21 23:11 Blood Blood Culture - Preliminary Gram Negative Rods 12/16/21 22:30 Urine,Clean Catch Urine Culture - Preliminary - Constitutional no acute distress, chronically ill appearing - *Routine HEENT Exam Head: Present: normocephalic Eye: Present: EOMI ENT: Present: mucous membranes moist - *Routine Neck Exam Present: trachea midline. Absent: tracheal deviation - *Routine Respiratory Exam Present: CTA bilaterally. Absent: accessory muscle use - *Routine Cardiovascular Exam Present: RRR - *Routine Abdominal Exam Present: soft, normoactive bowel sounds, tenderness. Absent: guarding, firm - *Routine Extremities Exam Present: full ROM, pulses intact. Absent: cyanosis, clubbing - *Routine Skin Exam Present: intact, dry. Absent: cyanosis, erythema - *Routine Neurological Exam Present: alert, oriented X3. Absent: motor deficit Namibian-speaking only - Routine Psychiatric Exam Present: unable to assess Assessment and Plan (1) EDD (acute kidney injury) Status: Acute Category: Medical Code(s): N17.9 - Acute kidney failure, unspecified (2) Diabetes mellitus, insulin dependent (IDDM), uncontrolled Status: Acute Category: Medical (3) Severe sepsis with acute organ dysfunction Status: Acute Category: Medical Code(s): A41.9 - Sepsis, unspecified organism; R65.20 - Severe sepsis without septic shock (4) UTI (urinary tract infection) Status: Acute Qualifiers: Urinary tract infection type: acute cystitis Hematuria presence: without hematuria Qualified Code(s): N30.00 - Acute cystitis without hematuria
[2021-12-18 11:48] LABS: POC Glucose,Bedside 234 (70-110)
[2021-12-18 12:00] VITALS: BP 163/73; PULSE 80; RESP 22; TEMP 36.9; O2SAT 97
[2021-12-18 16:00] VITALS: BP 178/70; PULSE 101; RESP 18; TEMP 36.9; O2SAT 98
--- NOTE | 2021-12-18 16:30 | PC.NURSE ---
Pt. has slept off and on throughout shift. Pt has been up to bathroom to shower during the day. Pt. ambulated well with assist x1. Pt. has been nauseated off and on throughout shift and not ate very much. Pt. son has been in room most of the day, and assisting pt. with daily care. FSBS at 227 5 units insulin given. Pt. denies needs, will continue to monitor.
[2021-12-18 16:57] LABS: POC Glucose,Bedside 227 (70-110)
[2021-12-18 20:00] VITALS: BP 160/63; PULSE 97; RESP 16; TEMP 37.2; O2SAT 97
[2021-12-18 22:02] LABS: POC Glucose,Bedside 138 (70-110)
[2021-12-19] VITALS (10 sets, daily range): BP systolic 146–171; BP diastolic 63–81; PULSE 79–94; RESP 16–22; TEMP 36.8–37.3; O2SAT 91–97; BMI 23.5; BMI 23.3
--- NOTE | 2021-12-19 05:55 | PC.NURSE ---
Pt c/o nausea/vomiting 1x t/o shift. 25mg Phenergan administered per MAR with favorable results. Son at bedside. Call light within reach.
[2021-12-19 07:17] LABS: POC Glucose,Bedside 147 (70-110)
[2021-12-19 07:22] LABS: Basophils % 0.5 % (0.1-2.0); Eosinophils # 0.2 K/mm3 (0.0-0.4); Hematocrit 29.8 % (37.0-47.0); Hemoglobin 9.7 g/dL (12.2-16.2); Lymphocytes # 2.1 K/mm3 (0.7-4.5); Lymphocytes % 29.6 % (10-50); Mean Corpuscular HGB Conc 32.6 g/dL (31.8-35.4); Mean Corpuscular Volume 82.9 fl (81-99); Mean Platelet Volume 8.7 fl (7.4-10.4); Monocytes # 0.4 K/mm3 (0.1-1.0); Monocytes % 6.4 % (1.7-9.3); Neutrophils # 4.2 K/mm3 (1.8-7.8); Neutrophils % 60.5 % (37.0-80.0); Platelet Count 282 K/mm3 (142-424); Red Cell Distribution Width 14.8 % (11.5-17.5); White Blood Count 6.9 K/mm3 (4.8-10.8)
[2021-12-19 07:29] LABS: Anion Gap 10.8 mEq/L (5-15); Blood Urea Nitrogen 20 mg/dl (7-17); Calcium 8.9 mg/dl (8.4-10.2); Carbon Dioxide 27 mmol/L (22.0-30.0); Chloride 103 mmol/L (98-107); Creatinine Clearance Estimated 56 mL/min (50-200); Estimated Glomerular Filt Rate 47 ml/min (>60); GFR (African American) 56 ML/MIN (>60); Glucose 155 mg/dl (74-100); Potassium 3.8 mmoL/L (3.5-5.1); Sodium 137 mmol/L (136-145)
--- NOTE | 2021-12-19 09:51 | HMH.ACPN2 ---
Internal Medicine - PN: Subj *Date: 12/19/21 *Time: 21:47 Interval history: 55-year-old Maldivian-speaking female patient resting in bed quietly with eyes closed, awakens to verbal stimuli. She FaceTime with her son and he translates she is still feeling nauseated, but abdominal pain has decreased, we will start Reglan. Her medications from home have been reviewed. Blood pressure was elevated last night we did add Norvasc Exam Vital signs and Labs for Last 24 Hours: Temp Pulse Resp BP Pulse Ox 98.2 F 89 22 148/63 H 95 12/19/21 08:00 12/19/21 08:00 12/19/21 08:00 12/19/21 08:00 12/19/21 08:00 Laboratory Results - last 24 hr 12/18/21 10:59: POC Glucose 234 H 12/18/21 16:45: POC Glucose 227 H 12/18/21 21:55: POC Glucose 138 H 12/19/21 06:19: POC Glucose 147 H 12/19/21 06:40: WBC 6.9, RBC 3.60 L, Hgb 9.7 L, Hct 29.8 L, MCV 82.9, MCH 27.0, MCHC 32.6, RDW 14.8, Plt Count 282, MPV 8.7, Neut % (Auto) 60.5, Lymph % (Auto) 29.6, [place] % (Auto) 6.4, Eos % (Auto) 3.0, Baso % (Auto) 0.5, Neut # (Auto) 4.2, Lymph # (Auto) 2.1, [place] # (Auto) 0.4, Eos # (Auto) 0.2, Baso # (Auto) 0.0 12/19/21 06:40: Sodium 137, Potassium 3.8, Chloride 103, Carbon Dioxide 27, Anion Gap 10.8, BUN 20 H D, Creatinine 1.20 H, Estimated Creat Clear 56, Estimated GFR 47 L, Est GFR ( Amer) 56 L, Glucose 155 H, Calcium 8.9 I & O for Last 24 hours: Intake & Output 12/16/21 12/17/21 12/18/21 12/19/21 23:59 23:59 23:59 23:59 Intake Total 3206 / 3206 2425 / 2425 2468 / 2468 Output Total 500 / 1250 2350 / 2350 1600 / 1600 Balance 2706 / 1956 75 / 75 868 / 868 Weight 160 lb 147 lb 5.006 oz 146 lb 7 oz 146 lb 7 oz Microbiology Reports for the Last 24 Hours: Microbiology 12/16/21 22:30 Urine,Clean Catch Urine Culture - Preliminary 12/16/21 23:11 Blood Blood Culture - Preliminary Gram Negative Rods 12/16/21 23:11 Blood Blood Culture - Preliminary Gram Negative Rods - Constitutional no acute distress, chronically ill appearing - *Routine HEENT Exam Head: Present: normocephalic Eye: Present: EOMI ENT: Present: mucous membranes moist - *Routine Neck Exam Present: trachea midline, tracheal deviation - *Routine Respiratory Exam Present: CTA bilaterally. Absent: accessory muscle use - *Routine Cardiovascular Exam Present: RRR - *Routine Abdominal Exam Present: soft, normoactive bowel sounds, tenderness. Absent: distended, firm - *Routine Extremities Exam Present: full ROM, pulses intact. Absent: cyanosis, clubbing, edema - *Routine Skin Exam Present: intact, dry. Absent: cyanosis, erythema - *Routine Neurological Exam Present: alert, oriented X3 Maldivian-speaking only - Routine Psychiatric Exam Present: unable to assess Assessment and Plan (1) EDD (acute kidney injury) Status: Acute Category: Medical Code(s): N17.9 - Acute kidney failure, unspecified (2) Diabetes mellitus, insulin dependent (IDDM), uncontrolled Status: Acute Category: Medical (3) Severe sepsis with acute organ dysfunction Status: Acute Category: Medical Code(s): A41.9 - Sepsis, unspecified organism; R65.20 - Severe sepsis without septic shock (4) UTI (urinary tract infection) Status: Acute Qualifiers: Urinary tract infection type: acute cystitis Hematuria presence: without hematuria Qualified Code(s): N30.00 - Acute cystitis without hematuria Category: Medical Code(s): N39.0 - Urinary tract infection, site not specified (5) Depression Status: Acute Qualifiers: Depression Type: major depressive disorder Major depression recurrence: recurrent Active/Remission status: currently active Major depression episode severity: mild Qualified Code(s): F33.0 - Major depressive disorder, recurrent, mild Category: Medical Code(s): F32.A - Depression, unspecified - Assessment and plan all Dx Assessment and Plan for all problem
--- NOTE | 2021-12-19 11:08 | ECG_ITS ---
APPROVED REPORT Exam: Resting ECG HR:91 bpm ECG Measurements Heart Rate 91 AXES TX 128 P 66 QRSd 87 QRS 82 QT 354 T 3 QTc 402 Conclusion SINUS RHYTHM LOW QRS VOLTAGE IN PRECORDIAL LEADS [QRS DEFLECTION < 1.0 mV IN CHEST LEADS] BORDERLINE ECG UNCONFIRMED REPORT Electronically signed by : Joseph Gonzalez MD 12/21/2021 16:04:27
[2021-12-19 12:11] LABS: POC Glucose,Bedside 191 (70-110)
[2021-12-19 16:26] LABS: POC Glucose,Bedside 173 (70-110)
[2021-12-19 21:03] LABS: POC Glucose,Bedside 170 (70-110)
--- NOTE | 2021-12-19 22:26 | PC.NURSE ---
PT IS ROMANSH SPEAKING ONLY-SPOKE WITH MARIANNE FROM THE LANGUAGE LINE TO HELP WITH PT ASSESSMENT,MEDICINES AND EXPLAINING THAT WAS GOING TO CHANGE HER IV.
[2021-12-20] VITALS: PULSE 70
[2021-12-20 04:00] VITALS: BP 174/75; PULSE 75; PULSE 80; RESP 18; TEMP 36.9; O2SAT 94
--- NOTE | 2021-12-20 04:11 | PC.NURSE ---
PT HAS SLEPT WELL TONIGHT,LUNGS CLEAR,RESP.EVEN AND UNLABORED.ORTIZ CATH PATENT AND DRAINING CLEAR YELLOW URINE,PT HAS NOT REQUIRED ANY PAIN MEDICINE THIS SHIFT AND HAS BEEN ASKED SEVERAL TIME IF SHE HAS ANY DELOR(PAIN).HER IV SITE NEEDED TO BE CHANGED BECAUSE THE OTHER HAD INFILTRATED AT FIRST OF SHIFT.
[2021-12-20 04:36] VITALS: BMI 24.7
[2021-12-20 05:56] LABS: POC Glucose,Bedside 117 (70-110)
[2021-12-20 07:29] LABS: Basophils # 0.1 K/mm3 (0-0.2); Basophils % 1.4 % (0.1-2.0); Eosinophils # 0.2 K/mm3 (0.0-0.4); Eosinophils % 2.7 % (0.1-12.0); Hematocrit 28.6 % (37.0-47.0); Hemoglobin 9.6 g/dL (12.2-16.2); Lymphocytes # 1.9 K/mm3 (0.7-4.5); Lymphocytes % 32.4 % (10-50); Mean Corpuscular HGB Conc 33.7 g/dL (31.8-35.4); Mean Corpuscular Hemoglobin 27.9 pg (27.0-31.2); Mean Corpuscular Volume 82.8 fl (81-99); Mean Platelet Volume 8.5 fl (7.4-10.4); Monocytes # 0.3 K/mm3 (0.1-1.0); Monocytes % 5.2 % (1.7-9.3); Neutrophils # 3.5 K/mm3 (1.8-7.8); Neutrophils % 58.2 % (37.0-80.0); Platelet Count 275 K/mm3 (142-424); Red Blood Count 3.46 M/mm3 (4.20-5.40); Red Cell Distribution Width 14.7 % (11.5-17.5); White Blood Count 5.9 K/mm3 (4.8-10.8)
[2021-12-20 07:50] VITALS: BP 162/72; PULSE 86; RESP 16; TEMP 36.6; O2SAT 94
[2021-12-20 08:00] VITALS: PULSE 80; O2SAT 94
[2021-12-20 08:05] LABS: Anion Gap 11.9 mEq/L (5-15); Blood Urea Nitrogen 16 mg/dl (7-17); Calcium 8.7 mg/dl (8.4-10.2); Carbon Dioxide 29 mmol/L (22.0-30.0); Chloride 103 mmol/L (98-107); Creatinine Clearance Estimated 59 mL/min (50-200); Estimated Glomerular Filt Rate 47 ml/min (>60); GFR (African American) 56 ML/MIN (>60); Glucose 123 mg/dl (74-100); Potassium 3.9 mmoL/L (3.5-5.1); Sodium 140 mmol/L (136-145)
--- NOTE | 2021-12-20 09:09 | HMH.DCSUM ---
General - General Admission date:: 12/17/21 Discharge date: 12/20/21 HPI HPI: 55-year-old Sri Lankan-speaking female patient presented to the [facility] emergency department for reports of nausea and vomiting, decreased p.o. intake, and history of diabetes. She reports she is only been in [place] for 3 weeks. Glucose in the emergency department is greater than 500, she received 10 units of regular insulin IV. She also received ceftriaxone 1 g, Toradol 30 mg and Zofran 4 mg Abdomen/pelvis CT revealed Urinary bladder wall thickening and surrounding inflammatory changes. There is air-fluid level in the urinary bladder. Cannot exclude severe cystitis versus recent Warner catheter placement. 2. Bilateral pyelonephritis cannot be ruled out. Small amount of gas in bilateral proximal ureters. Horseshoe configuration of the kidneys. Urology consulted Hospital Course Hospital Course: 55-year-old Sri Lankan-speaking female patient presented to the [facility] emergency department for reports of nausea and vomiting, decreased p.o. intake, and history of diabetes. She reports she is only been in [place] for 3 weeks. Initial urinalysis revealed 1+ leukocytes, 4+ bacteria, 1+ blood, and 2+ glucose. White blood cell count in emergency department was 15.5, now 5.9. Hemoglobin stable Initially BUN 41, creatinine 2.0 after IV fluids and p.o. intake currently BUN 16 and creatinine 1.2 Initial blood glucose was 504, lactate 3.0 she was on sliding scale insulin and currently glucose is 120s 100.8 orally and heart rate 117, white blood cell count 15.5, creatinine 2.0 Patient is Sri Lankan-speaking only went no Albanian. She FaceTime son during rounds and he reports that she lives in [place] and has currently been in the [place] for 3 weeks he did bring in her medication and it was recorded by pharmacy. Son reports he is unaware of exactly what kind of care she has been receiving in [place] or if she even takes her medicine. He reports mother is going to stay in [place] and we will arrange follow-up appointment at PCP. She did receive ceftriaxone IV while inpatient. She has a reports of nausea and Reglan was started with no further reports of nausea Warner catheter was DC'd and she was urinating without difficulty She did have some high blood pressures and Norvasc 5 mg was started Urology has seen and recommends: No surgical intervention is warranted at this time. Medical treatment for pyelonephritis is ended and antibiotics should be guided by the urine culture. The air in the collecting system is likely from a gas-forming bacteria most commonly E. coli. Patient with evidence of bladder wall thickening on the CT scan in May 2021. She may have some chronic cystitis or chronic bladder dysfunction. EDD (acute kidney injury) After IV fluids and p.o. fluids BUN/creatinine down to 16/1.2 Diabetes mellitus We will start her on metformin 500 mg twice daily and follow-up in office Severe sepsis with acute organ dysfunction UTI due to Klebsiella species UTI due to extended-spectrum beta lactamase (ESBL) producing Escherichia col Bacteremia, escherichia coli She was receiving IV fluids and tolerated p.o. fluids with a few complaints of nausea on day of discharge She received ceftriaxone IV while inpatient and will be discharged on Bactrim DS 1 p.o. twice daily x10 days 55-year-old female patient resting in bed quietly with eyes open, smiles when she sees people entering room. She FaceTime son and he interprets that she is feeling better today and ready to go home. He reports he will be able to leave work and come pick patient up and then take her home and we will schedule follow-up appointment for her. PLAN: 1. We will discharge home today 2. Bactrim DS 1 pill twice a day x10 days 3. Metformin 500 mg twice daily 4. Follow-up with PCP in 1 week Objective Vital
--- NOTE | 2021-12-20 10:58 | PC.NURSE ---
Spoke to patient's son about discharge. Patient's son stated he would be here in about an hour or so.
[2021-12-20 11:06] VITALS: BP 177/89; PULSE 86; RESP 17; TEMP 37; O2SAT 92
[2021-12-21 09:58] LABS: POC Glucose,Bedside 176 (70-110)
--- NOTE | 2021-12-25 11:59 | CARE MANAGER ---
Unable to reach Ms. Chang by phone again today. Also attempted call on 12/23.
== END 2021-12-20 12:50 | disposition home or self-care (01) | DRG 872 ==
LOC: ER 23:05 → 2ND 12-17 01:06
PROVIDERS: Nurse Practitioner Family; Admitting Provider Emergency Medicine; Emergency Provider Emergency Medicine; Visit Provider Family Medicine
DX: A41.51 Sepsis due to Escherichia coli [E. coli] (principal); N30.00 Acute cystitis without hematuria; N17.9 Acute kidney failure, unspecified; R65.20 Severe sepsis without septic shock; E11.9 Type 2 diabetes mellitus without complications; Z79.4 Long term (current) use of insulin; F32.A Depression, unspecified; B96.1 Klebsiella pneumoniae [K. pneumoniae] as the cause of diseases classified elsewhere; Z79.84 Long term (current) use of oral hypoglycemic drugs
CPT/HCPCS: 36415; 74176; 80048; 80053; 80305; 81001; 81025; 82009; 82150; 82962; 83036; 83605; 83690; 83735; 84145; 84681; 85007; 85025; 85651; 86140; 87040; 87077; 87086; 87088; 87186; 93005; 99285; C9803; J0696; J1335; J2405; U0003; U0005

== ENCOUNTER 2022-01-12 13:55 | Emergency (ER) | payer OTHER, SELFPAY ==
[2022-01-12] VITALS (8 sets, daily range): BP systolic 183–236; BP diastolic 68–121; PULSE 77–95; RESP 14–17; TEMP 36.6–37; O2SAT 97–99; BMI 26.5
--- NOTE | 2022-01-12 14:39 | CT_ITS ---
PROCEDURE INFORMATION: Exam: CT Head Without Contrast Exam date and time: 01/12/2022 2:51 PM Age: 56 years old Clinical indication: Altered mental status/memory loss; Confusion or disorientation TECHNIQUE: Imaging protocol: Computed tomography of the head without contrast. Radiation optimization: All CT scans at this facility use at least one of these dose optimization techniques: automated exposure control; mA and/or kV adjustment per patient size (includes targeted exams where dose is matched to clinical indication); or iterative reconstruction. COMPARISON: No relevant prior studies available. FINDINGS: Brain: No hemorrhage, mass effect or midline shift. Age-related atrophy and chronic white matter ischemic changes, with no evidence of an acute intracranial abnormality. Cerebral ventricles: No ventriculomegaly. Paranasal sinuses: Bilateral maxillary sinusitis, greater on the right. Sphenoid sinusitis. Mastoid air cells: Visualized mastoid air cells are well aerated. Bones/joints: No acute fracture. Soft tissues: No acute changes IMPRESSION: 1. No hemorrhage, mass effect or midline shift. 2. Age-related atrophy and chronic white matter ischemic changes, with no evidence of an acute intracranial abnormality. 3. Bilateral maxillary sinusitis, greater on the right. 4. Sphenoid sinusitis.
--- NOTE | 2022-01-12 14:42 | PC.NURSE ---
ER MD at speaking with family and patient; family is interpreting for patient
--- NOTE | 2022-01-12 14:48 | PC.NURSE ---
pt to CT with veterinary surgery technologist by roque
[2022-01-12 14:58] LABS: Basophils # 0.1 K/mm3 (0-0.2); Basophils % 1.4 % (0.1-2.0); Eosinophils # 0.2 K/mm3 (0.0-0.4); Eosinophils % 3.5 % (0.1-12.0); Hematocrit 35.7 % (37.0-47.0); Hemoglobin 12.1 g/dL (12.2-16.2); Lymphocytes % 32.2 % (10-50); Mean Corpuscular HGB Conc 33.8 g/dL (31.8-35.4); Mean Corpuscular Hemoglobin 28.3 pg (27.0-31.2); Mean Corpuscular Volume 83.6 fl (81-99); Mean Platelet Volume 8.7 fl (7.4-10.4); Monocytes # 0.3 K/mm3 (0.1-1.0); Monocytes % 5.3 % (1.7-9.3); Neutrophils # 3.6 K/mm3 (1.8-7.8); Neutrophils % 57.7 % (37.0-80.0); Platelet Count 204 K/mm3 (142-424); Red Blood Count 4.27 M/mm3 (4.20-5.40); Red Cell Distribution Width 15.6 % (11.5-17.5); White Blood Count 6.2 K/mm3 (4.8-10.8)
--- NOTE | 2022-01-12 15:00 | PC.NURSE ---
pt returned from CT by stretcher with video technician; no complications
[2022-01-12 15:02] LABS: Ammonia < 9 umol/L (9-30)
[2022-01-12 15:26] LABS: Alanine Aminotransferase 22 U/L (12-78); Albumin Level 4.3 g/dl (3.5-5.0); Albumin/Globulin Ratio 1.1 (1.1-1.8); Alkaline Phosphatase 165 U/L (38-126); Anion Gap 13.1 mEq/L (5-15); Aspartate Amino Transferase 29 U/L (14-36); Bilirubin,Total 0.2 mg/dl (0.2-1.3); Blood Urea Nitrogen 32 mg/dl (7-17); Calcium 9.8 mg/dl (8.4-10.2); Carbon Dioxide 24 mmol/L (22.0-30.0); Chloride 107 mmol/L (98-107); Creatinine Clearance Estimated 40 mL/min (50-200); Estimated Glomerular Filt Rate 31 ml/min (>60); GFR (African American) 38 ML/MIN (>60); Globulin 3.9 g/dL (1.3-3.2); Glucose 251 mg/dl (74-100); Potassium 5.1 mmoL/L (3.5-5.1); Sodium 139 mmol/L (136-145); Total Protein,Serum 8.2 g/dl (6.3-8.2)
--- NOTE | 2022-01-12 15:50 | PC.NURSE ---
straight cath attempted. pt had no urine in the bladder. MD notified and new orders placed.
--- NOTE | 2022-01-12 16:06 | PC.NURSE ---
TOMAS Smith at BS to give pt meds; family at BS
[2022-01-12 16:46] LABS: Microscopic, Urine URINE MICROSCOPIC (MICROSCOPIC)
[2022-01-12 16:57] LABS: Appearance,Urine CLEAR (Clear); Bilirubin,Urine Negative (Negative); Blood, Urine 1+ (Negative); Color,Urine YELLOW (Yellow); Glucose,Urine (UA) 1+ (Negative); Ketones,Urine Negative (Negative); Leukocyte Esterase,Urine Negative (Negative); Nitrate,Urine Negative (Negative); PH,Urine 7.5 (5.0-8.5); Protein,Urine 2+ (Negative); Urobilinogen,Urine 0.2 EU/dl (0.2)
--- NOTE | 2022-01-12 17:05 | PC.NURSE ---
ER at speaking with patient and family
[2022-01-12 17:07] LABS: Barbiturates Screen,Urine Negative ng/ml (<200); Benzodiazepines Screen,Urine Negative ng/ml (<200)
[2022-01-12 17:08] LABS: Amphetamine/Metha Screen,Urine Negative ng/ml (<1000); Cannabinoid Screen,Urine Negative ng/ml (<50)
[2022-01-12 17:09] LABS: Cocaine Screen,Urine Negative ng/ml (<300)
[2022-01-12 17:10] LABS: Methadone Screen,Urine Negative ng/ml (<300); Opiate Screen,Urine Negative ng/ml (<300)
[2022-01-12 17:11] LABS: Phencyclidine Screen,Urine Negative ng/ml (<25)
--- NOTE | 2022-01-12 17:13 | HMH.EDGENADL ---
ED Disposition Clinical Impression: Dehydration Disposition: Home, Self-Care Condition on Discharge: Good Instructions: DI for Altered Mental Status Additional Instructions: It is very important that you follow-up with a primary care provider soon as possible, please maintain good hydration, and drink enough water so that your urine is clear. Referrals: Provider,Referral, [Primary Care Provider] - - Critical Care Critical Care Time: No Attestation: On 01/12/22, the high probability of a clinically significant, sudden or life threatening deterioration of the following system(s) required my full and direct attention, intervention and personal management. The time I documented below is in addition to time spent performing reported procedures but includes the following listed in this critical care notation. Medical Decision Making - Medical Records Medical records reviewed: Yes: I reviewed the patient's medical records. - Lauro Inquiry Pt receiving controlled substance: No Vital Signs: 01/12/22 14:30 01/12/22 14:33 01/12/22 15:30 Temperature 98.6 F Temperature Source Oral Pulse Rate 95 H 86 Pulse Rate [Left Radial] 92 H Respiratory Rate 17 Blood Pressure 232/121 H 231/117 H Blood Pressure [Right Arm] 216/102 H Blood Pressure Mean 132 155 Blood Pressure Mean [Right Arm] 140 02 Sat by Pulse Oximetry 99 97 98 Oxygen Delivery Method 01/12/22 16:00 01/12/22 16:30 01/12/22 17:01 Temperature Temperature Source Pulse Rate 79 77 Pulse Rate [Left Radial] Respiratory Rate 14 14 Blood Pressure 236/116 H 222/98 H 183/68 H Blood Pressure [Right Arm] Blood Pressure Mean 139 153 Blood Pressure Mean [Right Arm] 02 Sat by Pulse Oximetry 99 98 Oxygen Delivery Method Room Air 01/12/22 17:08 Temperature Temperature Source Pulse Rate Pulse Rate [Left Radial] Respiratory Rate Blood Pressure 222/98 H Blood Pressure [Right Arm] Blood Pressure Mean Blood Pressure Mean [Right Arm] 02 Sat by Pulse Oximetry Oxygen Delivery Method - Lab Data Lab Results 01/12/22 14:17: WBC 6.2, RBC 4.27, Hgb 12.1 L, Hct 35.7 L, MCV 83.6, MCH 28.3, MCHC 33.8, RDW 15.6, Plt Count 204, MPV 8.7, Neut % (Auto) 57.7, Lymph % (Auto) 32.2, [place] % (Auto) 5.3, Eos % (Auto) 3.5, Baso % (Auto) 1.4, Neut # (Auto) 3.6, Lymph # (Auto) 2.0, [place] # (Auto) 0.3, Eos # (Auto) 0.2, Baso # (Auto) 0.1 01/12/22 14:17: Sodium 139, Potassium 5.1, Chloride 107, Carbon Dioxide 24, Anion Gap 13.1, BUN 32 H, Creatinine 1.70 H, Estimated Creat Clear 40, Estimated GFR 31 L, Est GFR ( Amer) 38 L, Glucose 251 H, Calcium 9.8, Total Bilirubin 0.2, AST 29, ALT 22, Alkaline Phosphatase 165 H, Total Protein 8.2, Albumin 4.3, Globulin 3.9 H, Albumin/Globulin Ratio 1.1 01/12/22 14:17: Ammonia < 9 L 01/12/22 16:42: Urine Color Yellow, Urine Appearance Clear, Urine pH 7.5, Ur Specific [place] 1.020, Urine Protein 2+, Urine Glucose (UA) 1+, Urine Ketones Negative, Urine Blood 1+, Urine Nitrate Negative, Urine Bilirubin Negative, Urine Urobilinogen 0.2, Ur Leukocyte Esterase Negative 01/12/22 16:42: Urine Opiates Screen Negative, Urine Methadone Screen Negative, Ur Barbituates Screen Negative, Ur Phencyclidine Scrn Negative, Ur Amphetamines Screen Negative, U Benzodiazepines Scrn Negative, Urine Cocaine Screen Negative, U Marijuana (THC) Screen Negative Result diagrams: 01/12/22 14:17 01/12/22 14:17 Orders (Tests/Meds): ED MEDICATIONS Generic Name Dose Route Start Last Admin Trade Name Freq PRN Reason Stop Dose Admin Lactated Ringer's 1,000 mls @ 999 mls/hr 01/12/22 16:00 01/12/22 15:59 Lactated Ringer's 1000 Ml Bag IV 01/12/22 17:00 999 mls/hr .Q1H1M LAURA Administration Sodium Chloride 10 ml 01/12/22 14:40 Sodium Chloride 0.9% 10ml Flush Syringe IV 02/11/22 14:39 NEEDED PRN Maintain IV Site Discontinued Medications Generic Name Dose Route Start Last Admin Trade Name
== END 2022-01-12 17:55 | disposition home or self-care (01) ==
PROVIDERS: Emergency Provider Student in an Organized Health Care Education/Training Program
DX: E86.0 Dehydration (principal); R41.82 Altered mental status, unspecified; I12.9 Hypertensive chronic kidney disease with stage 1 through stage 4 chronic kidney disease, or unspecified chronic kidney disease; E11.22 Type 2 diabetes mellitus with diabetic chronic kidney disease; N18.9 Chronic kidney disease, unspecified; E78.5 Hyperlipidemia, unspecified
CPT/HCPCS: 70450; 80053; 80305; 81001; 82140; 85025

== ENCOUNTER 2022-01-13 15:17 | Inpatient (IN) | payer OTHER, SELFPAY ==
[2022-01-13] VITALS (9 sets, daily range): BP systolic 145–201; BP diastolic 70–105; PULSE 91–115; RESP 14–18; TEMP 37.4–38.9; O2SAT 97–99; BMI 26.2; BMI 27.3
--- NOTE | 2022-01-13 16:05 | PC.NURSE ---
checked on pt in lobby at this time, pt family member reports pt was sent to ER for fluids. Explained to family about no beds being available in ER at this time, will get pt in a room as soon as possible
[2022-01-13 16:30] LABS: POC Glucose,Bedside 290 (70-110)
--- NOTE | 2022-01-13 17:02 | HMH.EDGENADL ---
ED Disposition Clinical Impression: Pyelonephritis, Horseshoe kidney, SIRS (systemic inflammatory response syndrome) Disposition: Admitted as Observation Condition on Discharge: Fair Referrals: Lupe Pope PA [Primary Care Provider] - Time of Disposition: 20:44 - Critical Care Critical Care Time: No Attestation: On 01/13/22, the high probability of a clinically significant, sudden or life threatening deterioration of the following system(s) required my full and direct attention, intervention and personal management. The time I documented below is in addition to time spent performing reported procedures but includes the following listed in this critical care notation. Medical Decision Making - Medical Records Medical records reviewed: Yes: I reviewed the patient's medical records. - Lauro Inquiry Pt receiving controlled substance: No Vital Signs: 01/13/22 15:19 01/13/22 16:27 01/13/22 19:27 Temperature 100.3 F H 102.0 F H Temperature Source Oral Pulse Rate 115 H 99 H Pulse Rate [Right Radial] 115 H Respiratory Rate 18 Blood Pressure 201/105 H 183/82 H Blood Pressure [Right Arm] 201/105 H Blood Pressure Mean [Right Arm] 137 Blood Pressure Source [Right Arm] Automatic Cuff Blood Pressure Position [Right Arm] Sitting 02 Sat by Pulse Oximetry 97 98 97 Oxygen Delivery Method Room Air 01/13/22 19:42 01/13/22 19:57 01/13/22 20:16 Temperature Temperature Source Pulse Rate 109 H 103 H 99 H Pulse Rate [Right Radial] Respiratory Rate Blood Pressure 145/70 H 173/87 H 170/84 H Blood Pressure [Right Arm] Blood Pressure Mean [Right Arm] Blood Pressure Source [Right Arm] Blood Pressure Position [Right Arm] 02 Sat by Pulse Oximetry 98 99 97 Oxygen Delivery Method - Lab Data Lab Results 01/13/22 16:22: POC Glucose 290 H 01/13/22 17:04: WBC 6.9, RBC 4.22, Hgb 11.4 L, Hct 33.2 L, MCV 78.6 L, MCH 27.1, MCHC 34.5, RDW 14.3, Plt Count 211, MPV 8.1, Neut % (Auto) 81.4 H, Lymph % (Auto) 14.5, [place] % (Auto) 3.5, Eos % (Auto) 0.4, Baso % (Auto) 0.2, Neut # (Auto) 5.6, Lymph # (Auto) 1.0, [place] # (Auto) 0.2, Eos # (Auto) 0.0, Baso # (Auto) 0.0 01/13/22 17:04: Sodium 135 L, Potassium 5.3 H, Chloride 103, Carbon Dioxide 23, Anion Gap 14.3, BUN 24 H, Creatinine 1.40 H, Estimated Creat Clear 46, Estimated GFR 39 L, Est GFR ( Amer) 47 L D, Glucose 297 H, Calcium 9.5, Total Bilirubin 0.3, AST 28, ALT 21, Alkaline Phosphatase 158 H, Total Protein 7.9, Albumin 4.2, Globulin 3.7 H, Albumin/Globulin Ratio 1.1, Procalcitonin 0.076 01/13/22 17:04: Lactate 1.1 01/13/22 19:40: Urine Color Yellow, Urine Appearance Clear, Urine pH 8.0, Ur Specific [place] 1.020, Urine Protein 3+, Urine Glucose (UA) 2+, Urine Ketones Trace, Urine Blood Trace-i, Urine Nitrate Negative, Urine Bilirubin Negative, Urine Urobilinogen 0.2, Ur Leukocyte Esterase Trace, Urine RBC Occasional, Urine WBC Occasional, Ur Squamous Epith Cells 3-5, Urine Bacteria None 01/13/22 19:45: SARS-CoV-2 (PCR) Not detected, Influenza A Untype (PCR) Not detected, Influenza Type B (PCR) Not detected Result diagrams: 01/13/22 17:04 01/13/22 17:04 Orders (Tests/Meds): ED MEDICATIONS Generic Name Dose Route Start Last Admin Trade Name Freq PRN Reason Stop Dose Admin Sodium Chloride 1,000 mls @ 999 mls/hr 01/13/22 16:45 01/13/22 19:41 Sod Chlor 0.9% 1000ml Bag IV 01/13/22 17:45 999 mls/hr .Q1H1M LAURA Administration Ceftriaxone Sodium 1 gm/ 50 mls @ 100 mls/hr 01/13/22 20:30 01/13/22 20:20 Sodium Chloride IV 01/27/22 20:29 100 mls/hr Q24H LAURA Administration Discontinued Medications Generic Name Dose Route Start Last Admin Trade Name Freq PRN Reason Stop Dose Admin Ibuprofen 600 mg 01/13/22 16:36 01/13/22 19:43 Ibuprofen 600 Mg Tablet PO 01/13/22 16:37 600 mg ONCE ONE Administration ORDERS Category Date Time Status Blood Culture Stat Micro 01/13/22 17:09 Received Me
[2022-01-13 17:18] LABS: Basophils % 0.2 % (0.1-2.0); Eosinophils % 0.4 % (0.1-12.0); Hematocrit 33.2 % (37.0-47.0); Hemoglobin 11.4 g/dL (12.2-16.2); Lymphocytes % 14.5 % (10-50); Mean Corpuscular HGB Conc 34.5 g/dL (31.8-35.4); Mean Corpuscular Hemoglobin 27.1 pg (27.0-31.2); Mean Corpuscular Volume 78.6 fl (81-99); Mean Platelet Volume 8.1 fl (7.4-10.4); Monocytes # 0.2 K/mm3 (0.1-1.0); Monocytes % 3.5 % (1.7-9.3); Neutrophils # 5.6 K/mm3 (1.8-7.8); Neutrophils % 81.4 % (37.0-80.0); Platelet Count 211 K/mm3 (142-424); Red Blood Count 4.22 M/mm3 (4.20-5.40); Red Cell Distribution Width 14.3 % (11.5-17.5); White Blood Count 6.9 K/mm3 (4.8-10.8)
[2022-01-13 17:28] LABS: Alanine Aminotransferase 21 U/L (12-78); Albumin Level 4.2 g/dl (3.5-5.0); Albumin/Globulin Ratio 1.1 (1.1-1.8); Alkaline Phosphatase 158 U/L (38-126); Anion Gap 14.3 mEq/L (5-15); Aspartate Amino Transferase 28 U/L (14-36); Bilirubin,Total 0.3 mg/dl (0.2-1.3); Blood Urea Nitrogen 24 mg/dl (7-17); Calcium 9.5 mg/dl (8.4-10.2); Carbon Dioxide 23 mmol/L (22.0-30.0); Chloride 103 mmol/L (98-107); Creatinine Clearance Estimated 46 mL/min (50-200); Estimated Glomerular Filt Rate 39 ml/min (>60); GFR (African American) 47 ML/MIN (>60); Globulin 3.7 g/dL (1.3-3.2); Glucose 297 mg/dl (74-100); Lactic Acid 1.1 mmol/L (0.7-2.1); Potassium 5.3 mmoL/L (3.5-5.1); Sodium 135 mmol/L (136-145); Total Protein,Serum 7.9 g/dl (6.3-8.2)
[2022-01-13 17:44] LABS: Procalcitonin 0.076 ng/mL (0.0-2.0)
--- NOTE | 2022-01-13 18:14 | CT_ITS ---
PROCEDURE INFORMATION: Exam: CT Abdomen And Pelvis Without Contrast Exam date and time: 01/13/2022 6:20 PM Age: 56 years old Clinical indication: Abdominal pain; Generalized; Prior surgery; Surgery date: 6+ months; Surgery type: Hysterectomy; Additional info: Flank pain TECHNIQUE: Imaging protocol: Computed tomography of the abdomen and pelvis without contrast. Radiation optimization: All CT scans at this facility use at least one of these dose optimization techniques: automated exposure control; mA and/or kV adjustment per patient size (includes targeted exams where dose is matched to clinical indication); or iterative reconstruction. COMPARISON: CT ABDOMEN PELVIS WO CON 12/17/2021 10:54 AM FINDINGS: Liver: Normal. No mass. Gallbladder and bile ducts: Single tiny gallstone. Pancreas: Normal. No ductal dilation. Spleen: Normal. No splenomegaly. Adrenal glands: Normal. No mass. Kidneys and ureters: Horseshoe kidney. Mild bilateral hydroureteronephrosis without evidence of obstructing stone or mass. Stomach and bowel: Unremarkable. No obstruction. No mucosal thickening. Appendix: No evidence of appendicitis. Intraperitoneal space: Unremarkable. No free air. No significant fluid collection. Vasculature: Unremarkable. No abdominal aortic aneurysm. Lymph nodes: Unremarkable. No enlarged lymph nodes. Urinary bladder: Multiple small bladder diverticuli. Reproductive: Hysterectomy. Bones/joints: Unremarkable. No acute fracture. Soft tissues: Unremarkable. IMPRESSION: 1. Horseshoe kidney. 2. Mild bilateral hydroureteronephrosis possibly secondary to neurogenic bladder or bladder outlet obstruction. 3. Tiny gallstone.
[2022-01-13 19:45] LABS: Microscopic, Urine URINE MICROSCOPIC (MICROSCOPIC)
[2022-01-13 19:49] LABS: Coronavirus 19, PCR Not Detected (NotDetected); Influenza A, PCR Not Detected (NotDetected); Influenza B, PCR Not Detected (NotDetected)
[2022-01-13 20:03] LABS: Appearance,Urine CLEAR (Clear); Bilirubin,Urine Negative (Negative); Blood, Urine TRACE-I (Negative); Color,Urine YELLOW (Yellow); Glucose,Urine (UA) 2+ (Negative); Ketones,Urine TRACE (Negative); Leukocyte Esterase,Urine TRACE (Negative); Nitrate,Urine Negative (Negative); Protein,Urine 3+ (Negative); Urobilinogen,Urine 0.2 EU/dl (0.2)
[2022-01-13 20:16] LABS: RBC,Urine Occasional #/hpf (0-3); WBC,Urine Occasional #/hpf (0-3)
--- NOTE | 2022-01-13 21:47 | PC.NURSE ---
PT ARRIVED TO FLOOR VIA STRETCHER FROM ED W/STAFF @ [id number]
[2022-01-14 04:00] VITALS: BP 161/83; PULSE 88; RESP 16; TEMP 36.6; O2SAT 100
[2022-01-14 05:00] VITALS: BMI 27.2
[2022-01-14 06:53] LABS: Chloride 110 mmol/L (98-107); Eosinophils # 0.2 K/mm3 (0.0-0.4); Monocytes # 0.4 K/mm3 (0.1-1.0); Potassium 4.4 mmoL/L (3.5-5.1); Red Cell Distribution Width 15.7 % (11.5-17.5); Sodium 139 mmol/L (136-145)
[2022-01-14 06:56] LABS: Anion Gap 9.4 mEq/L (5-15); Blood Urea Nitrogen 20 mg/dl (7-17); Calcium 8.9 mg/dl (8.4-10.2); Carbon Dioxide 24 mmol/L (22.0-30.0); Creatinine Clearance Estimated 51 mL/min (50-200); Estimated Glomerular Filt Rate 42 ml/min (>60); GFR (African American) 51 ML/MIN (>60); Glucose 155 mg/dl (74-100)
--- NOTE | 2022-01-14 07:06 | PC.NURSE ---
Pt a+o x4. Iranian speaking only. Pt has not voiced any complaints to staff. Warner in place draining clear henok urine. Son at bedside. Call light within reach.
--- NOTE | 2022-01-14 07:16 | P.CONPHA_ITS ---
[facility] Pharmacy VTE Monitoring - Patient Demographics Admission date: 01/13/22 Report Date: 01/14/22 Time: 07:16 Allergies/Adverse Reactions: Patient Allergies No Known Allergies Allergy (Verified 01/13/22 14:28) Height: 1.57 m Weight: 67.222 kg Patient Problems: Current Active Problems Pyelonephritis (Acute) SIRS (systemic inflammatory response syndrome) (Acute) Horseshoe kidney (Acute) - VTE Risk Labs: VTE Related Lab Results Hgb 11.4 g/dL (12.2-16.2) L 01/13/22 17:04 Hct 33.2 % (37.0-47.0) L 01/13/22 17:04 Plt Count 211 K/mm3 (142-424) 01/13/22 17:04 BUN 20 mg/dl (7-17) H 01/14/22 05:50 Creatinine 1.30 mg/dl (0.52-1.04) H 01/14/22 05:50 Estimated Creat Clear 51 mL/min (50-200) 01/14/22 05:50 - Prophylaxis VTE Prophylaxis Ordered?: Yes Types of VTE Prophylaxis: TEDS Knee High Location of Applied Device: Bilateral Lower Extremeties
[2022-01-14 07:39] LABS: Basophils % 0.6 % (0.1-2.0); Eosinophils % 3.5 % (0.1-12.0); Hematocrit 29.9 % (37.0-47.0); Lymphocytes # 2.4 K/mm3 (0.7-4.5); Lymphocytes % 41.8 % (10-50); Mean Corpuscular HGB Conc 34.3 g/dL (31.8-35.4); Mean Corpuscular Hemoglobin 28.2 pg (27.0-31.2); Mean Corpuscular Volume 82.2 fl (81-99); Mean Platelet Volume 8.8 fl (7.4-10.4); Monocytes % 6.8 % (1.7-9.3); Neutrophils # 2.7 K/mm3 (1.8-7.8); Neutrophils % 47.2 % (37.0-80.0); Platelet Count 218 K/mm3 (142-424); Red Blood Count 3.63 M/mm3 (4.20-5.40); White Blood Count 5.8 K/mm3 (4.8-10.8)
[2022-01-14 07:41] LABS: Hemoglobin 10.2 g/dL (12.2-16.2)
--- NOTE | 2022-01-14 07:46 | HMH.PHAINT ---
MEDICATION RECONCILIATION COMPLETED ON PATIENT USING EXTERNAL FILL HISTORY FROM PHARMACY, LIST FROM PCP OFFICE, AND DISCHARGE SUMMARY FROM PREVIOUS ADMISSION. -RAMSES PALOMARESD
[2022-01-14 08:00] VITALS: BP 167/70; PULSE 78; RESP 16; TEMP 36.9; O2SAT 99
--- NOTE | 2022-01-14 09:20 | US_ITS ---
FINAL REPORT TECHNIQUE: Ultrasound images of the kidneys and bladder were obtained. CLINICAL HISTORY: HTN FINDINGS: The right kidney measures 10.1 cm in length. It is normal in echogenicity. There is no hydronephrosis. The left kidney measures 8.9 cm in length. It is normal in echogenicity. There is no hydronephrosis. The spleen is normal. IMPRESSION: No hydronephrosis. Reviewed, Interpreted and Dictated by Jayme Partida III, MD Transcribed by Dionna Mendez Authenticated and [facility]
--- NOTE | 2022-01-14 10:05 | HMH.HP ---
*Admission Date: 01/13/22 *Chief complaint: Weakness, AMS *History of present illness: Pt to ED after being referred from PCP regarding c/o elevated BP, ROME, vomiting, and low-grade fever 56-year-old female presenting to the emergency department with lower abdominal pain, nausea, vomiting, confusion, fever. Son says that she has been confused for the last 2 to 3 days. She actually was evaluated in our emergency department yesterday for strokelike symptoms, confusion and elevated blood pressure. Today she is complaining of lower abdominal pain and pain with urination. It is located in the suprapubic area. Radiates to the low back. She has had fevers and chills. Eating and drinking very little. She has a history of urinary tract infections, ESBL on last culture. No falls or trauma. No vomiting. No diarrhea or constipation (Per A Flower DO) Temp 102, heart rate 115, ED physician reported pyelonephritis UA reveals trace leukocytes [facility] History I have reviewed the patient's past medical history: Yes Medical History: Reports:: Diabetes Mellitus Type 2, Hyperlipidemia, Hypertension Denies:: Cancer, Diabetes Mellitus Type 1, MRSA *Have you ever received a pneumonia vaccine?: No *Have you received a flu vaccine this season?: Yes Other Surgeries: Yes: Amputation: No Fractures: No - *Social History Smoking Status: Never smoker Alcohol Intake: current Alcohol Intake Frequency:: holidays/special occasions only *Occupational Status:: unemployed Housing: house Household Members: children *Travel in the last 8 weeks: Outside the [facility] Family Hx:: Diabetes Review of Systems - Review of Systems Review of systems:: pertinent systems reviewed and negative unless documented below Patient is only Ukrainian-speaking, no Macedonian. Her son is in the room for translation - Constitutional Reports fatigue, Reports weakness, Denies anorexia, Denies fever(s) - Eyes Denies blurry vision, Denies double vision - ENT Denies dizziness, Denies difficulty swallowing - *Cardiovascular Denies chest pain, Denies chest pain with activity - *Respiratory Denies change in phlegm color, Denies chest congestion - *Gastrointestinal Denies abdominal pain, Denies change in bowel habits, Denies difficulty swallowing - *Musculoskeletal Denies joint pain, Denies back pain - Integumentary/Breasts Denies hair loss, Denies change in skin color - *Neurologic Denies headache(s), Denies dizziness - Psychiatric Denies anxiety, Denies behavioral changes - Endocrine Denies cold intolerance, Denies increased thirst - Hematologic/Lymphatic Denies easy bleeding, Denies easy bruising - Allergic/Immunologic Denies GI upset with certain foods, Denies tongue swelling Meds Home Medications Medication Instructions Recorded Confirmed Type Ferrous Sulfate 325 mg PO DAILY 12/17/21 01/13/22 History Chlorthalidone 50 mg PO DAILY 12/18/21 01/13/22 History Folic Acid [Folic Acid 1mg tablet] 1 mg PO DAILY 12/18/21 01/13/22 History Omeprazole [Omeprazole 20mg 20 mg PO DAILY 12/18/21 01/13/22 History Capsule] Pravastatin Sodium 10 mg PO HS 12/18/21 01/13/22 History Pregabalin [Lyrica 75mg Cap] 75 mg PO HS 12/18/21 01/13/22 History Sennosides [Natural Laxative] 8.6 mg PO DAILY 12/18/21 01/13/22 History Tolterodine Tartrate [Detrol] 2 mg PO BID 12/18/21 01/13/22 History Insulin Glargine,Hum.rec.anlog 8 unit SQ HS 01/13/22 01/13/22 History [Lantus Insulin 100units/mL 10mL vial] Metformin HCl 500 mg PO BID 01/13/22 01/13/22 History Allergies Allergy/AdvReac Type Severity Reaction Status Date / Time No Known Allergies Allergy Verified 01/13/22 14:28 Exam Vital signs and Labs for Last 24 Hours: Temp Pulse Resp BP Pulse Ox 98.5 F 78 16 167/70 H 99 01/14/22 08:00 01/14/22 08:00 01/14/22 08:00 01/14/22 08:00 01/14/22 08:00 Laboratory Results - last 24 hr 01/13/22 16:22
[2022-01-14 13:02] LABS: POC Glucose,Bedside 249 (70-110)
--- NOTE | 2022-01-14 13:26 | CA_ITS ---
FINAL REPORT TECHNIQUE: Grayscale, color Doppler and duplex Doppler ultrasound of the kidneys, aorta and renal arteries was performed. Multiple velocities were measured. CLINICAL HISTORY: HTN,PYELONEPHRITIS,KNOWN HORSESHOE KIDNEY FINDINGS: Aorta velocity: 175 cm/sec Right kidney: 12.2 cm. Right intrarenal RI: .76 Right renal artery velocity: 141 cm/sec. Right RAR (Renal artery-Aortic Ratio): .81 Left Kidney: 7.63 cm. Left intrarenal RI: .73 Left renal artery velocity: 78 cm/sec. Left RAR (Renal Artery-Aortic Ratio): .45 IMPRESSION: Exam is somewhat limited with renal arteries incompletely visualized but no significant renal artery stenosis is identified. CT angiogram or postcontrast MR angiogram would be more sensitive for evaluation of possible renal artery stenosis. Reviewed, Interpreted and Dictated by Jayme Partida III, MD Transcribed by Dionna Mendez Authenticated and [facility]
--- NOTE | 2022-01-14 14:36 | HMH.OTEV ---
OT Inpatient Evaluation Rehab OT IP Evaluation Start: 01/14/22 10:06 Freq: ONCE Status: Complete Protocol: Document 01/14/22 13:56 [facility] (Rec: 01/14/22 14:36 [facility] [id number]) Rehab OT IP Assessment Subjective History Pt oriented x 2 on arrival. Son present during therapy evaluation and provides translation because pt only speaks turkmen. Pt was admitted on 01/13/22 due to weakness and pyelonephritis. Prior to being in the hospital she lived with her son and daughter in law. Pt moved here from [place] ~1 month ago. Son reports pt was able to complete all ADLs with minimal assistance. Usually she could dress herself, but assistance was provided with bathing for safety concerns. Pt was able to feed herself. Pt was dependent upon son and daughter in law for completion of all IADLs. Pt used a cane during ambulation. Son reports over the last few days she has become increasingly weak. Subjective Pt completed bed mobility and went from supine to sitting at eob with cga. Pt stood from eob with cga. Pt transferred from bed to chair with cga. Pt was left sitting in chair with call castillo, chair alarm, and all toher needs in reach. Objective Patient Orientation Person,Place Upper Extremity Gross ROM Min Limitation <25% Shoulder ROM Limitations Muscle Weakness Elbow ROM Limitations Muscle Weakness Wrist Limitations of Range of Motion Muscle Weakness Bed Mobility bed mobility-scooting,bed mobility - supine/sit,bed mobility - rolling Assist Level Contact Guard/Hand Hold Transfer Training Sit/Stand Transfer Assist Level Contact Guard/Hand Hold Chair Transfer Ability Contact Guard/Hand Hold Chair Transfer Technique Sit to/from Ambulatory Rehab OT IP prob,goals,plan Problems Date of Evaluation:
--- NOTE | 2022-01-14 14:44 | HMH.CONS ---
*Admission Date: 01/13/22 *Reason for consult:: Bilateral hydroureteronephrosis *History of present illness: Patient is a 56-year-old female who presented to the emergency room yesterday with lower abdominal pain, nausea, vomiting, confusion and fever. Her son said that she has been confused for the last 2 to 3 days. Evaluated in the emergency room the day before for strokelike symptoms, confusion and elevated blood pressure. Patient was admitted to the hospital and december findings of pyelonephritis treated. CT at that time showed a horseshoe kidney without evidence of obstruction stone. The bladder appears thick-walled at that time. CT scan was repeated yesterday and showed the interval development of some mild lateral hydroureteronephrosis and findings of nuclear and thick-walled bladder. Patient's white count. Her creatinine is 1.3 baseline for her. Her urine showed 3+ protein, 2+ glucose trace leukocyte esterase and no bacteria. Warner catheter was placed with a residual noted. Her catheter is draining henok-colored urine today. Her son is in the room with her adequate historian. Patient does not speak Swazi. [facility] History Medical History: Reports:: Diabetes Mellitus Type 2, Hyperlipidemia, Hypertension Denies:: Cancer, Diabetes Mellitus Type 1, MRSA *Have you ever received a pneumonia vaccine?: No *Have you received a flu vaccine this season?: Yes Other Surgeries: Yes: Amputation: No Fractures: No - *Social History Smoking Status: Never smoker Alcohol Intake: current Alcohol Intake Frequency:: holidays/special occasions only *Occupational Status:: unemployed Housing: house Household Members: children *Travel in the last 8 weeks: Outside the [facility] Family Hx:: Diabetes Review of Systems - Review of Systems Review of systems:: unable to obtain - *Neurologic Reports weakness, Denies behavioral changes, Denies dizziness, Denies headache(s), Denies dizziness Meds Home Medications Medication Instructions Recorded Confirmed Type Ferrous Sulfate 325 mg PO DAILY 12/17/21 01/13/22 History Chlorthalidone 50 mg PO DAILY 12/18/21 01/13/22 History Folic Acid [Folic Acid 1mg tablet] 1 mg PO DAILY 12/18/21 01/13/22 History Omeprazole [Omeprazole 20mg 20 mg PO DAILY 12/18/21 01/13/22 History Capsule] Pravastatin Sodium 10 mg PO HS 12/18/21 01/13/22 History Pregabalin [Lyrica 75mg Cap] 75 mg PO HS 12/18/21 01/13/22 History Sennosides [Natural Laxative] 8.6 mg PO DAILY 12/18/21 01/13/22 History Tolterodine Tartrate [Detrol] 2 mg PO BID 12/18/21 01/13/22 History Insulin Glargine,Hum.rec.anlog 8 unit SQ 01/13/22 01/13/22 History [Lantus Insulin 100units/mL 10mL vial] Metformin HCl 500 mg PO BID 01/13/22 01/13/22 History Allergies Allergy/AdvReac Type Severity Reaction Status Date / Time No Known Allergies Allergy Verified 01/13/22 14:28 Exam Vital signs and Labs for Last 24 Hours: Temp Pulse Resp BP Pulse Ox 98.5 F 78 16 167/70 H 99 01/14/22 08:00 01/14/22 08:00 01/14/22 08:00 01/14/22 08:00 01/14/22 08:00 Laboratory Results - last 24 hr 01/13/22 16:22: POC Glucose 290 H 01/13/22 17:04: WBC 6.9, RBC 4.22, Hgb 11.4 L, Hct 33.2 L, MCV 78.6 L, MCH 27.1, MCHC 34.5, RDW 14.3, Plt Count 211, MPV 8.1, Neut % (Auto) 81.4 H, Lymph % (Auto) 14.5, [place] % (Auto) 3.5, Eos % (Auto) 0.4, Baso % (Auto) 0.2, Neut # (Auto) 5.6, Lymph # (Auto) 1.0, [place] # (Auto) 0.2, Eos # (Auto) 0.0, Baso # (Auto) 0.0 01/13/22 17:04: Sodium 135 L, Potassium 5.3 H, Chloride 103, Carbon Dioxide 23, Anion Gap 14.3, BUN 24 H, Creatinine 1.40 H, Estimated Creat Clear 46, Estimated GFR 39 L, Est GFR ( Amer) 47 L D, Glucose 297 H, Calcium 9.5, Total Bilirubin 0.3, AST 28, ALT 21, Alkaline Phosphatase 158 H, Total Protein 7.9, Albumin 4.2, Globulin 3.7 H, Albumin/Globulin Ratio 1.1, Procalcitonin 0.076 01/13/22 17:04: Lactate 1.1 01/13/22 19:40: Urine Color Yellow, Urine Appear
[2022-01-14 16:00] VITALS: BP 169/85; PULSE 96; RESP 16; TEMP 37.2; O2SAT 99
[2022-01-14 17:01] LABS: POC Glucose,Bedside 103 (70-110)
[2022-01-14 20:00] VITALS: BP 166/74; PULSE 79; RESP 18; TEMP 36.5; O2SAT 96
[2022-01-15] VITALS (9 sets, daily range): BP systolic 161–190; BP diastolic 76–92; PULSE 66–82; RESP 16–18; TEMP 36.7–37.1; O2SAT 96–99; BMI 27.2
--- NOTE | 2022-01-15 06:47 | PC.NURSE ---
Pt a + o x4. Pt c/o nausea and ROME at beginnin gof shift. PRN Zofran and Ibuprofen administered per MAR with favorable results. Warner in place draining clear yellow urine. Son at bedside. Call light within reach.
[2022-01-15 06:56] LABS: Basophils % 0.6 % (0.1-2.0); Eosinophils # 0.2 K/mm3 (0.0-0.4); Eosinophils % 4.9 % (0.1-12.0); Hematocrit 27.6 % (37.0-47.0); Hemoglobin 9.7 g/dL (12.2-16.2); Lymphocytes # 2.2 K/mm3 (0.7-4.5); Lymphocytes % 43.6 % (10-50); Mean Corpuscular HGB Conc 35.3 g/dL (31.8-35.4); Mean Corpuscular Hemoglobin 28.6 pg (27.0-31.2); Mean Corpuscular Volume 80.9 fl (81-99); Mean Platelet Volume 8.3 fl (7.4-10.4); Monocytes # 0.3 K/mm3 (0.1-1.0); Neutrophils # 2.2 K/mm3 (1.8-7.8); Neutrophils % 43.8 % (37.0-80.0); Platelet Count 191 K/mm3 (142-424); Red Blood Count 3.41 M/mm3 (4.20-5.40); Red Cell Distribution Width 15.5 % (11.5-17.5); White Blood Count 4.9 K/mm3 (4.8-10.8)
[2022-01-15 07:06] LABS: Chloride 112 mmol/L (98-107); Sodium 137 mmol/L (136-145)
[2022-01-15 07:09] LABS: Blood Urea Nitrogen 13 mg/dl (7-17); Calcium 8.5 mg/dl (8.4-10.2); Carbon Dioxide 23 mmol/L (22.0-30.0); Creatinine Clearance Estimated 61 mL/min (50-200); Estimated Glomerular Filt Rate 51 ml/min (>60); GFR (African American) 62 ML/MIN (>60); Glucose 182 mg/dl (74-100)
[2022-01-15 07:19] LABS: Anion Gap 5.8 mEq/L (5-15); Potassium 3.8 mmoL/L (3.5-5.1)
--- NOTE | 2022-01-15 09:28 | CT_ITS ---
FINAL REPORT CLINICAL HISTORY: [facility] COMPARISON: 01/12/2022 FINDINGS: Axial images of the head were obtained without contrast. Coronal reformatted images were also obtained.This study was performed with techniques to keep radiation doses as low as reasonably achievable (ALARA). Individualized dose reduction techniques using automated exposure control or adjustment of mA and/or kV according to the patient's size were employed. There is no evidence of intracranial hemorrhage or mass. The ventricular size is within normal limits. There is no evidence of shift of the midline structures. No abnormal extra axial fluid collection is identified. No skull abnormality is seen on the bone window images. There is mucosal thickening in multiple sinuses. IMPRESSION: No acute intracranial abnormality. Reviewed, Interpreted and Dictated by Jayme Partida III, MD Transcribed by Alfie Dixon Authenticated and [facility]
--- NOTE | 2022-01-15 09:30 | DIET.NUTRFU ---
Patient c/o nausea during rounds today with vomiting, zofran in place PRN. Son is here most of the time to help with translation. meal intake only 25% yesterday. ABT in place, started some home meds. CT scan today and possible discharge. Will continue to monitor meal intake
--- NOTE | 2022-01-15 12:27 | HMH.DCSUM ---
General - General Admission date:: 01/13/22 Discharge date: 01/15/22 HPI HPI: Pt to ED after being referred from PCP regarding c/o elevated BP, ROME, vomiting, and low-grade fever 56-year-old female presenting to the emergency department with lower abdominal pain, nausea, vomiting, confusion, fever. Son says that she has been confused for the last 2 to 3 days. She actually was evaluated in our emergency department yesterday for strokelike symptoms, confusion and elevated blood pressure. Today she is complaining of lower abdominal pain and pain with urination. It is located in the suprapubic area. Radiates to the low back. She has had fevers and chills. Eating and drinking very little. She has a history of urinary tract infections, ESBL on last culture. No falls or trauma. No vomiting. No diarrhea or constipation (Per A Flower DO) Temp 102, heart rate 115, ED physician reported pyelonephritis UA reveals trace leukocytes Hospital Course Hospital Course: 56-year-old female presenting to the emergency department with lower abdominal pain, nausea, vomiting, confusion, fever. Son says that she has been confused for the last 2 to 3 days. She actually was evaluated in our emergency department yesterday for strokelike symptoms, confusion and elevated blood pressure. Today she is complaining of lower abdominal pain and pain with urination. It is located in the suprapubic area. Radiates to the low back. She has had fevers and chills. Eating and drinking very little. She has a history of urinary tract infections, ESBL on last culture. No falls or trauma. No vomiting. No diarrhea or constipation (Per A Flower DO) Temp 102, heart rate 115, ED physician reported pyelonephritis Renal artery duplex reveals: IMPRESSION: Exam is somewhat limited with renal arteries incompletely visualized but no significant renal artery stenosis is identified. CT angiogram or postcontrast MR angiogram would be more sensitive for evaluation of possible renal artery stenosis. 01/15/[address]: FINDINGS: Axial images of the head were obtained without contrast. Coronal reformatted images were also obtained.This study was performed with techniques to keep radiation doses as low as reasonably achievable (ALARA). Individualized dose reduction techniques using automated exposure control or adjustment of mA and/or kV according to the patient's size were employed. There is no evidence of intracranial hemorrhage or mass. The ventricular size is within normal limits. There is no evidence of shift of the midline structures. No abnormal extra axial fluid collection is identified. No skull abnormality is seen on the bone window images. There is mucosal thickening in multiple sinuses. IMPRESSION: No acute intracranial abnormality. Reviewed, Interpreted and Dictated by Jayme Partida III, MD Transcribed by Alfie Dixon Urology has seen and recommends: 56-year-old female with new findings of mild bilateral hydroureteronephrosis. Previous CT scan last month showed no evidence of hydroureteronephrosis but did show bladder. She had findings of pyelonephritis at her previous hospitalization last month. Interval development of the hydronephrosis and the bladder diverticula suggestive of a neurogenic bladder creating high-pressure in the bladder due to the retention. Patient is on Detrol which can contribute to that and will discontinue. Patient will need to have further evaluation for neurogenic bladder with urodynamics and dialysis anoscopy. Would leave her a Warner catheter in during the cessation. Sideration to teaching intermittent self-catheterization. We will follow along with you. Horseshoe kidney, Pyelonephritis Urology has seen and will follow up in office with urodynamics and cystoscopy. We will discontinue Warner catheter and nursing will teach patient straight cath technique EDD (acute kidney injury) She rec
--- NOTE | 2022-01-15 12:45 | PC.NURSE ---
SANGEETHA CALLED AND STATED HE WAS GOING TO DISCHARGE PT WITH FOLLOW UP APPOINTMENTS. SANGEETHA STATED TO AKANKSHA ORTIZ AND PT WILL FOLLOW UP IN THE OFFICE NEXT WEEK. PT'S SON AND PT WAS INSTRUCTED OF PLAN AND UNDERSTOOD IF PT IS TO HAVE ANY ABDOMINAL PAIN OF DIFFICULTY URINATING TO NOTIFY OFFICE WITHIN BUSINESS HOURS AND IF IT WAS AFTER HOURS TO GO TO THE ED. PT WILL BE SENT HOME WITH HAT TO VOID IN AND WILL NEED TO WRITE DOWN ALL VOIDS TO MAKE SURE PT IS HAVING ADEQUATE UOP.
--- NOTE | 2022-01-15 13:35 | CT_ITS ---
FINAL REPORT CLINICAL HISTORY: stroke alert COMPARISON: 3 hours prior FINDINGS: Axial images of the head were obtained without contrast. Coronal reformatted images were also obtained.This study was performed with techniques to keep radiation doses as low as reasonably achievable (ALARA). Individualized dose reduction techniques using automated exposure control or adjustment of mA and/or kV according to the patient's size were employed. There is no evidence of intracranial hemorrhage or mass. The ventricular size is within normal limits. There is no evidence of shift of the midline structures. No abnormal extra axial fluid collection is identified. No skull abnormality is seen on the bone window images. There is mucosal thickening in multiple sinuses. IMPRESSION: No acute intracranial abnormality. If indicated, brain MRI with diffusion weighted imaging would be helpful. Reviewed, Interpreted and Dictated by Jayme Partida III, MD Transcribed by Alfie Dixon Authenticated and [facility]
--- NOTE | 2022-01-15 13:42 | ECG_ITS ---
APPROVED REPORT Exam: Resting ECG HR:83 bpm ECG Measurements Heart Rate 83 AXES [place] 138 P 49 QRSd 94 QRS 8 QT 373 T 64 QTc 413 Conclusion SINUS RHYTHM NORMAL ECG UNCONFIRMED REPORT Electronically signed by : Joseph Gonzalez MD 01/17/2022 17:52:02
--- NOTE | 2022-01-15 13:50 | PC.NURSE ---
AT 1328 PT'S SON CAME OUT IN THE MARCIAL AND STATED PT WAS HAVING DIFFICULTY SPEAKING. 1 STAFF NURSE AND FERMENTATION OPERATOR WENT TO THE ROOM AND NOTICED PT WAS ALTERED AND WAS HAVING DIFFICULTIES WITH FOLLOWING COMMANDS. RT SIDED DEFECITS NOTED. FINGER STICK WAS 212. MANUAL BP 200/90. WHEN PRIMARY NURSE ARRIVED TO THE ROOM PT WAS ABLE TO FOLLOW COMMANDS. CHOCOLATE REFINING ROLLER EQUAL. STROKE ALERT WAS CALLED. PT WAS TRANSPORTED TO CT.
[2022-01-15 14:31] LABS: POC Glucose,Bedside 212 (70-110)
[2022-01-15 17:00] LABS: POC Glucose,Bedside 219 (70-110)
[2022-01-15 17:00] LABS: POC Glucose,Bedside 237 (70-110)
--- NOTE | 2022-01-15 18:08 | PC.NURSE ---
PT IS RESTING IN BED WITH FAMILY AT BEDSIDE. ALERT AND ORIENTED X4. MEDICATED PER MAR FOR HEADACHE THIS SHIFT. BP CONTINUES TO BE ELEVATED BUT HAS IMPROVED SINCE IV VASOTEC. PT IS EATING AND DRINKING FAIR. LUNG SOUNDS CLEAR. ABDOMEN SOFT/NON TENDER WITH ACTIVE BOWEL SOUNDS. PT HAS VOIDED SEVERAL TIMES SINCE CATHETER WAS DC'D. WILL CONTINUE TO MONITOR.
[2022-01-15 20:55] LABS: POC Glucose,Bedside 110 (70-110)
[2022-01-16] VITALS (7 sets, daily range): BP systolic 105–187; BP diastolic 58–91; PULSE 62–102; RESP 14–16; TEMP 36.8–37.2; O2SAT 94–98; BMI 28.0
[2022-01-16 00:31] LABS: POC Glucose,Bedside 105 (70-110)
--- NOTE | 2022-01-16 03:51 | PC.NURSE ---
2239 Pt found to be yelling out, c/o ROME and right sided weakness. Vitals taken at this time : BP 189/83, HR 76, RR 16, O2 96%, temp: 98.1. 2244 Manual BP 185/82, 400mg Ibuprofen administered per OCT [address] Gonzalez of pt BP 185/82 and pt status. New order for 5mg Amlodipine PO ONCE and 200mg Amlodipine PO ONCE read back, verified and carried out. 0000 Pt continues to c/o weakness, son in room states she is confused and slurring her speech. 0006 Manual BP 162/85 HR 70, temp 98.2, RR 14, O2 95% RA 0011 Carlos notified of pt status, orders to call rapid red 0012 Rapid red called 0016 FSBS obtained 105 0019 2nd IV access obtained, 20g R hand 0025 ER at assessing pt , NNO.
[2022-01-16 06:24] LABS: POC Glucose,Bedside 184 (70-110)
[2022-01-16 06:34] LABS: Chloride 109 mmol/L (98-107); Potassium 4.1 mmoL/L (3.5-5.1); Sodium 136 mmol/L (136-145)
[2022-01-16 06:37] LABS: Anion Gap 12.1 mEq/L (5-15); Blood Urea Nitrogen 14 mg/dl (7-17); Carbon Dioxide 19 mmol/L (22.0-30.0); Creatinine Clearance Estimated 62 mL/min (50-200); Estimated Glomerular Filt Rate 51 ml/min (>60); GFR (African American) 62 ML/MIN (>60)
[2022-01-16 06:38] LABS: Calcium 8.7 mg/dl (8.4-10.2); Glucose 193 mg/dl (74-100)
[2022-01-16 07:41] LABS: Basophils # 0.1 K/mm3 (0-0.2); Basophils % 0.9 % (0.1-2.0); Eosinophils # 0.2 K/mm3 (0.0-0.4); Eosinophils % 3.5 % (0.1-12.0); Hematocrit 27.9 % (37.0-47.0); Hemoglobin 9.6 g/dL (12.2-16.2); Lymphocytes # 1.8 K/mm3 (0.7-4.5); Lymphocytes % 29.2 % (10-50); Mean Corpuscular HGB Conc 34.6 g/dL (31.8-35.4); Mean Corpuscular Volume 81.1 fl (81-99); Mean Platelet Volume 8.4 fl (7.4-10.4); Monocytes # 0.3 K/mm3 (0.1-1.0); Monocytes % 5.5 % (1.7-9.3); Neutrophils # 3.7 K/mm3 (1.8-7.8); Neutrophils % 60.9 % (37.0-80.0); Platelet Count 196 K/mm3 (142-424); Red Blood Count 3.44 M/mm3 (4.20-5.40); Red Cell Distribution Width 15.5 % (11.5-17.5)
--- NOTE | 2022-01-16 09:26 | MR_ITS ---
FINAL REPORT CLINICAL HISTORY: Stroke-like symptoms headaches , nausea FINDINGS: Multiplanar MR imaging of the brain was performed without contrast. There are scattered foci of increased T2 signal in the cerebral white matter consistent with mild chronic ischemic/gliotic changes. There is no evidence of intracranial hemorrhage or mass. No abnormal ventricular dilatation is identified. No abnormal extra-axial fluid collection is seen. No abnormality is seen on the diffusion weighted images. The posterior fossa and brainstem are unremarkable. There is mucosal thickening in multiple sinuses. There is lack of normal flow void in the distal left ICA worrisome for slow flow or occlusion. IMPRESSION: Mild chronic ischemic/gliotic changes. No acute intracranial abnormality. Lack of normal flow void in the distal left ICA worrisome for slow flow or occlusion. Reviewed, Interpreted and Dictated by Jayme Partida III, MD Transcribed by Alife Dixon Authenticated and [facility]
--- NOTE | 2022-01-16 09:34 | HMH.ACPN2 ---
Internal Medicine - PN: Subj *Date: 01/16/22 *Time: 11:50 Interval history: 56-year-old female patient resting in bed quietly with eyes closed, awakens to verbal stimuli. She had some nausea and vomiting during the night received her Zofran she did report feeling better. This morning appears to be drooling from left side of mouth and corner of left mouth does not raise appropriately rest of neuro check intact. Blood pressure was elevated during night and she received extra dose of hypertensive medication. She was also complaining of headache during the night with strokelike symptoms which had resolved within several minutes when ER physician assessed Exam Vital signs and Labs for Last 24 Hours: Temp Pulse Resp BP Pulse Ox 99.0 F 85 16 145/58 H 98 01/16/22 08:00 01/16/22 08:00 01/16/22 08:00 01/16/22 08:00 01/16/22 08:00 Laboratory Results - last 24 hr 01/15/22 10:57: POC Glucose 237 H 01/15/22 13:29: POC Glucose 212 H 01/15/22 16:41: POC Glucose 219 H 01/15/22 20:45: POC Glucose 110 01/16/22 00:17: POC Glucose 105 01/16/22 06:09: POC Glucose 184 H 01/16/22 06:11: Sodium 136, Potassium 4.1, Chloride 109 H, Carbon Dioxide 19 L, Anion Gap 12.1, BUN 14, Creatinine 1.10 H, Estimated Creat Clear 62, Estimated GFR 51 L, Est GFR ( Amer) 62, Glucose 193 H, Calcium 8.7 01/16/22 07:28: WBC 6.0, RBC 3.44 L, Hgb 9.6 L, Hct 27.9 L, MCV 81.1, MCH 28.0, MCHC 34.6, RDW 15.5, Plt Count 196, MPV 8.4, Neut % (Auto) 60.9, Lymph % (Auto) 29.2, [place] % (Auto) 5.5, Eos % (Auto) 3.5, Baso % (Auto) 0.9, Neut # (Auto) 3.7, Lymph # (Auto) 1.8, [place] # (Auto) 0.3, Eos # (Auto) 0.2, Baso # (Auto) 0.1 I & O for Last 24 hours: Intake & Output 01/13/22 01/14/22 01/15/22 01/16/22 23:59 23:59 23:59 23:59 Intake Total 2816 / 2816 360 / 360 0 / 0 Output Total 925 / 2125 3380 / 3380 Balance 1891 / 691 -3020 / -3020 0 / 0 Weight 148 lb 8 oz 148 lb 3.2 oz 148 lb 2 oz 152 lb 3.2 oz Microbiology Reports for the Last 24 Hours: Microbiology 01/13/22 17:09 Blood Blood Culture - Preliminary NO GROWTH AFTER 48 HOURS 01/13/22 17:09 Blood Blood Culture - Preliminary NO GROWTH AFTER 48 HOURS - Constitutional no acute distress - *Routine HEENT Exam Head: Present: normocephalic Eye: Present: EOMI ENT: Present: mucous membranes moist - *Routine Neck Exam Present: trachea midline. Absent: tracheal deviation - *Routine Respiratory Exam Present: CTA bilaterally. Absent: accessory muscle use - *Routine Cardiovascular Exam Present: RRR - *Routine Abdominal Exam Present: soft, normoactive bowel sounds. Absent: tenderness, firm - *Routine Extremities Exam Present: full ROM, pulses intact. Absent: cyanosis, clubbing, edema - *Routine Skin Exam Present: intact, dry. Absent: cyanosis, erythema - *Routine Neurological Exam Present: alert Patient is Greenlandic-speaking only - Routine Psychiatric Exam Present: unable to assess Assessment and Plan (1) Horseshoe kidney Status: Acute Category: Medical Code(s): 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, fused and horseshoe kidney (2) Pyelonephritis Status: Acute Category: Medical Code(s): N12 - Tubulo-interstitial nephritis, not specified as acute or chronic (3) EDD (acute kidney injury) Status: Acute Category: Medical Code(s): N17.9 - Acute kidney failure, unspecified (4) Hydronephrosis Status: Acute Category: Medical Code(s): N13.30 - Unspecified hydronephrosis (5) Diabetes Status: Acute Category: Medical Code(s): E11.9 - Type 2 diabetes mellitus without complications (6) Hypertension Status: Acute Category: Medical Code(s): I10 - Essential (primary) hypertension - Assessment and plan all Dx Assessment and Plan for all problems:: Rounded with Dr. Das, all orders per Dr. Das: 1. MRI of the head 2. Ubrelvy for headache
--- NOTE | 2022-01-16 10:07 | CA_ITS ---
APPROVED REPORT EXAM: Comprehensive 2D, Doppler, and color-flow Echocardiogram [place] Attendant: Kenya Piper RVT Ht: 5 ft 1 in Wt: 152lbs BSA: 1.68 BP: 145/58 mmHg Indications: SOA,HTN,DM,SEVERE ROME 2D Dimensions LVOT 2.04 cm (M/F) 1.5-2.5 LA Volume 18.00 mL LA Volume Index 10.71 mL/m2 (M/F) 16-34 M-Mode Dimensions RVDd 2.28 cm (0.9-2.6) LA Diam 3.57 cm (1.9-4.0) LVDd 4.82 cm (3.5-5.7) Ao Diam 2.94 cm (2.0-3.7) LVDs 3.28 cm (3.5-5.7) IVSd 0.68 cm (0.6-1.1) PWd 0.50 cm (0.6-1.1) EF (Teich) 59.90% FS 32.00% EDV (Teich) 108.60 mL TAPSE 2.64 (<1.7) ESV (Teich) 43.50 mL LV Diastology E Decel Time 150.00 (160-240 msec) E/A Ratio 0.7 MED E' 10.30 (< 7 cm/sec) E'/MED E' Ratio 8.25 (>14) LAT E' 8.10 (<10 cm/sec) E/LAT E' Ratio 10.49 (>14) Aortic Valve AO Peak GR. 9.80 mmHg Mitral Valve MV E Max Chip. 85.00 (40-130 cm/s) MV A Velocity 124.00 (40-130 cm/s) E/A Ratio 0.68 MV Decel. Time 150.00 (160-240 ms) MV PHT 44.00 ms Pulmonary Valve PV Peak Velocity 117.00 (50-150 cm/s) Left Ventricle Left atrium is mildly enlarged, left ventricle is normal size, mild concentric left ventricular hypertrophy, estimated ejection fraction 55% with no regional wall motion abnormality, grade 1 diastolic dysfunction seen without tissue Doppler evidence of raise left atrial pressure. Right Ventricle Right atrium and right ventricle are normal size and contractility. Aortic Valve Aortic valve is minimally thickened and fibrosed, there is no aortic stenosis or aortic insufficiency. Mitral Valve Mitral valve grossly normal, there is trace mitral regurgitation. Tricuspid Valve Tricuspid valve grossly normal, there is trace tricuspid regurgitation, tricuspid regurgitation jet velocity is inadequate for calculation of the right ventricular systolic pressure. Pulmonic Valve Pulmonic valve is poorly visualized. Great Vessels Aortic root is normal size. Inferior vena cava normal size with normal inspiratory collapse. Pericardium No significant pericardial effusion noted. Conclusion 1. Mildly enlarged left atrium, normal left ventricular size, mild concentric left ventricular hypertrophy, estimated ejection fraction 55% with no regional wall motion abnormality, grade 1 diastolic dysfunction seen without tissue Doppler evidence of raise left atrial pressure. 2. Trace mitral and tricuspid regurgitation. 3. No significant pericardial effusion noted. 4. Inferior vena cava normal size with normal inspiratory collapse. Electronically signed by : Jese Bird MD 01/17/2022 15:36:05
--- NOTE | 2022-01-16 10:31 | ECG_ITS ---
APPROVED REPORT Exam: Resting ECG HR:83 bpm ECG Measurements Heart Rate 83 AXES [place] 139 P 60 QRSd 78 QRS 20 QT 369 T 63 QTc 409 Conclusion SINUS RHYTHM NORMAL ECG UNCONFIRMED REPORT Electronically signed by : Joseph Gonzalez MD 01/17/2022 17:31:55
[2022-01-16 11:24] LABS: POC Glucose,Bedside 152 (70-110)
[2022-01-16 13:07] LABS: POC Glucose,Bedside 152 (70-110)
--- NOTE | 2022-01-16 13:20 | DIET.NUTRFU ---
Patient continues to have nausea and refusing lunch at this time. Nursing started protonix to see if they would help. Spoke to nursing aids to determine if there was anything she felt like eating and she declined. Supplements are ordered and available as needed. Will continue to follow. Hydration labs WNL, IVF in place
--- NOTE | 2022-01-16 16:21 | CT_ITS ---
PROCEDURE INFORMATION: Exam: CTA Neck With Contrast Exam date and time: 01/16/2022 5:15 PM Age: 56 years old Clinical indication: Other: Lack of flow void; Patient HX: Lack of normal flow void in the distal left ica; Additional info: Stroke-like symptoms TECHNIQUE: Imaging protocol: Computed tomographic angiography of the neck with contrast. 3D rendering (Not supervised by radiologist): MIP and/or 3D reconstructed images were created by the technologist. Radiation optimization: All CT scans at this facility use at least one of these dose optimization techniques: automated exposure control; mA and/or kV adjustment per patient size (includes targeted exams where dose is matched to clinical indication); or iterative reconstruction. Contrast material: ISO 370; Contrast volume: 75 ml; Contrast route: INTRAVENOUS (IV); COMPARISON: MR HEAD/BRAIN WO CON 01/16/2022 12:04 PM FINDINGS: Right common carotid artery: Mild atherosclerotic changes of the right carotid bifurcation with less than 10% stenosis of the internal carotid artery per NASCET criteria. Right internal carotid artery: The right internal carotid artery is significantly larger than the left. Right external carotid artery: No occlusion or stenosis of the origin. Left common carotid artery: The left common carotid artery is significantly smaller than the right common carotid artery. Left internal carotid artery: The left internal carotid artery is very narrow in diameter from its origin to the skull base. Congenital hypoplasia versus 99% stenosis would be most likely.s Left external carotid artery: No occlusion or stenosis of the origin. Right vertebral artery: No stenosis. No dissection or occlusion. Left vertebral artery: No stenosis. No dissection or occlusion. 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 Paranasal sinuses: Mild mucosal thickening in the paranasal sinuses. Secretions in the right maxillary sinus. Nasal cavity: Left elle bullosa. Thyroid: Thyroid nodules measure up to 6 mm. No follow-up imaging is warranted. Dental: Multiple dental cavities with periapical lucencies that likely represent dental infection. Soft tissues: Normal. No significant soft tissue swelling. Bones/joints: No acute fracture. IMPRESSION: 1. The markedly hypoplastic appearance of the left internal carotid artery could be due to near occlusion (99% sytenosis) at its origin with slow flow. However, given the marked asymmetry in size of common carotid and internal carotid arteries, this is chronic with well established collateral flow. Congenital hypoplasia of the left internal carotid artery is very rare, but possible. 2. 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 Neurointerventional consultation is recommended. 3. Secretions in the right maxillary sinus. Please exclude acute sinusitis. 4. Multiple dental cavities with periapical lucencies that likely represent dental infection. COMMENTS: Consistent with the [employer]'s Incidental Findings Committee white paper (J Am Taye Radiol 2015): In patients aged 35 years and older with an incidental thyroid nodule equal to or greater than 1.[address], MRI or extrathyroidal US, further evaluation with dedicated thyroid US is recommended for patients with normal life expectancy and without comorbidities. For smaller nodules without suspicious features, no further evaluation or follow up is recommended. REFERENCES: NASCET CRITERIA. The degree of internal carotid artery stenosis is based on NASCET criteria. No
[2022-01-16 17:42] LABS: POC Glucose,Bedside 153 (70-110)
--- NOTE | 2022-01-16 18:47 | PC.NURSE ---
PT IS RESTING IN BED. ALERT AND ORIENTED X3. THIS MORNING DURING ASSESSMENT PT WAS DIAPHORETIC AND COMPLAINING OF A HEADACHE. PT WAS MEDICATED PER MAR FOR DISCOMFORT. EKG,ECHO AND MRI WAS ORDERED. PT HAS BEEN HAVING N/V THIS SHIFT. PT MEDICATED PER MAR WITH ZOFRAN AND PHENERGAN. AFTER PHENERGAN PT WAS ABLE TO REST. BP IS NOW 123/65. PT WILL AWAKEN EASILY. USES CALL LIGHT TO LET STAFF KNOW SHE NEEDS ASSISTANCE. PT DID NOT WANT TO TAKE A BATH THIS SHIFT BUT SHE DID CHANGE HER CLOTHES AND STAFF CHANGED PT'S LINENS. AFTER MRI RESULTS SANGEETHA ORDERED A NECK CT ANGIO. WILL CONTINUE TO MONITOR.
[2022-01-16 23:19] LABS: POC Glucose,Bedside 160 (70-110)
[2022-01-17] VITALS (7 sets, daily range): BP systolic 150–198; BP diastolic 72–88; PULSE 85–96; RESP 16–20; TEMP 36.8–36.9; O2SAT 94–97; BMI 27.6
--- NOTE | 2022-01-17 03:01 | PC.NURSE ---
Patient has continues to be slightly hypertensive this shift. Patient has slept all well this shift. Patient has reported a headache a few times this shift. Patient's son remains at bedside.
[2022-01-17 06:51] LABS: Basophils % 0.6 % (0.1-2.0); Eosinophils # 0.2 K/mm3 (0.0-0.4); Eosinophils % 4.1 % (0.1-12.0); Hematocrit 29.7 % (37.0-47.0); Hemoglobin 10.1 g/dL (12.2-16.2); Lymphocytes # 1.9 K/mm3 (0.7-4.5); Lymphocytes % 35.7 % (10-50); Mean Corpuscular HGB Conc 34.2 g/dL (31.8-35.4); Mean Corpuscular Hemoglobin 28.2 pg (27.0-31.2); Mean Corpuscular Volume 82.6 fl (81-99); Mean Platelet Volume 8.2 fl (7.4-10.4); Monocytes # 0.3 K/mm3 (0.1-1.0); Monocytes % 5.9 % (1.7-9.3); Neutrophils # 2.9 K/mm3 (1.8-7.8); Neutrophils % 53.7 % (37.0-80.0); Platelet Count 213 K/mm3 (142-424); Red Blood Count 3.59 M/mm3 (4.20-5.40); Red Cell Distribution Width 15.6 % (11.5-17.5); White Blood Count 5.4 K/mm3 (4.8-10.8)
[2022-01-17 07:00] LABS: Chloride 109 mmol/L (98-107); Sodium 139 mmol/L (136-145)
[2022-01-17 07:03] LABS: Blood Urea Nitrogen 13 mg/dl (7-17); Creatinine Clearance Estimated 56 mL/min (50-200); Estimated Glomerular Filt Rate 46 ml/min (>60); GFR (African American) 56 ML/MIN (>60); Potassium 3.8 mmoL/L (3.5-5.1)
[2022-01-17 07:04] LABS: Anion Gap 12.8 mEq/L (5-15); Calcium 8.6 mg/dl (8.4-10.2); Carbon Dioxide 21 mmol/L (22.0-30.0); Glucose 182 mg/dl (74-100)
--- NOTE | 2022-01-17 09:32 | CT_ITS ---
FINAL REPORT TECHNIQUE: Thin section axial CT with IV contrast supplemented with multiplanar reconstruction under CT angiogram protocol. 3-D reconstructions were performed. This study was performed with techniques to keep radiation doses as low as reasonably achievable (ALARA). Individualized dose reduction techniques using automated exposure control or adjustment of mA and/or kV according to the patient''s size were employed. CLINICAL HISTORY: Stroke-Like symptoms COMPARISON: 01/16/2022 FINDINGS: The right internal carotid artery is somewhat ectatic with moderate vascular calcification. There is no significant stenosis. The distal left internal carotid artery has an abnormal appearance and probably occluded. The other arteries are intact. No aneurysm is seen. IMPRESSION: Distal left internal carotid artery has an abnormal appearance, probably occluded. Reviewed, Interpreted and Dictated by Jayme Partida III, MD Transcribed by Dionna Mendez Authenticated and [facility]
--- NOTE | 2022-01-17 09:41 | HMH.ITSTN ---
spoke to tito de, pt currently does not have an IV.
--- NOTE | 2022-01-17 11:45 | HMH.DCSUM ---
General - General Admission date:: 01/13/22 Discharge date: 01/17/22 HPI HPI: Pt to ED after being referred from PCP regarding c/o elevated BP, ROME, vomiting, and low-grade fever 56-year-old female presenting to the emergency department with lower abdominal pain, nausea, vomiting, confusion, fever. Son says that she has been confused for the last 2 to 3 days. She actually was evaluated in our emergency department yesterday for strokelike symptoms, confusion and elevated blood pressure. Today she is complaining of lower abdominal pain and pain with urination. It is located in the suprapubic area. Radiates to the low back. She has had fevers and chills. Eating and drinking very little. She has a history of urinary tract infections, ESBL on last culture. No falls or trauma. No vomiting. No diarrhea or constipation (Per A Flower DO) Temp 102, heart rate 115, ED physician reported pyelonephritis UA reveals trace leukocytes Hospital Course Hospital Course: 56-year-old female presenting to the emergency department with lower abdominal pain, nausea, vomiting, confusion, fever. Son says that she has been confused for the last 2 to 3 days. She actually was evaluated in our emergency department yesterday for strokelike symptoms, confusion and elevated blood pressure. Today she is complaining of lower abdominal pain and pain with urination. It is located in the suprapubic area. Radiates to the low back. She has had fevers and chills. Eating and drinking very little. She has a history of urinary tract infections, ESBL on last culture. No falls or trauma. No vomiting. No diarrhea or constipation (Per A Flower DO) Temp 102, heart rate 115, ED physician reported pyelonephritis Renal artery duplex reveals: IMPRESSION: Exam is somewhat limited with renal arteries incompletely visualized but no significant renal artery stenosis is identified. CT angiogram or postcontrast MR angiogram would be more sensitive for evaluation of possible renal artery stenosis. 01/15/[address]: FINDINGS: Axial images of the head were obtained without contrast. Coronal reformatted images were also obtained.This study was performed with techniques to keep radiation doses as low as reasonably achievable (ALARA). Individualized dose reduction techniques using automated exposure control or adjustment of mA and/or kV according to the patient's size were employed. There is no evidence of intracranial hemorrhage or mass. The ventricular size is within normal limits. There is no evidence of shift of the midline structures. No abnormal extra axial fluid collection is identified. No skull abnormality is seen on the bone window images. There is mucosal thickening in multiple sinuses. IMPRESSION: No acute intracranial abnormality. Reviewed, Interpreted and Dictated by Jayme Partida III, MD Transcribed by Alfie Dixon 01/16/22 Brain MRI: FINDINGS: Multiplanar MR imaging of the brain was performed without contrast. There are scattered foci of increased T2 signal in the cerebral white matter consistent with mild chronic ischemic/gliotic changes. There is no evidence of intracranial hemorrhage or mass. No abnormal ventricular dilatation is identified. No abnormal extra-axial fluid collection is seen. No abnormality is seen on the diffusion weighted images. The posterior fossa and brainstem are unremarkable. There is mucosal thickening in multiple sinuses. There is lack of normal flow void in the distal left ICA worrisome for slow flow or occlusion. IMPRESSION: Mild chronic ischemic/gliotic changes. No acute intracranial abnormality. Lack of normal flow void in the distal left ICA worrisome for slow flow or occlusion. Reviewed, Interpreted and Dictated by Jayme Partida III, MD 01/16/22 Neck CTA: FINDINGS: Right common carotid artery: Mild atherosclerotic changes of the right carotid bifurcation with less than 1
--- NOTE | 2022-01-17 11:45 | HMH.ACPN ---
Internal Medicine - PN: Subj *Date: 01/17/22 *Time: 11:45 Exam Vital signs and Labs for Last 24 Hours: Temp Pulse Resp BP Pulse Ox 98.3 F 86 18 189/81 H 97 01/17/22 08:00 01/17/22 08:00 01/17/22 08:00 01/17/22 08:00 01/17/22 08:00 Laboratory Results - last 24 hr 01/16/22 12:58: POC Glucose 152 H 01/16/22 17:34: POC Glucose 153 H 01/16/22 20:12: POC Glucose 160 H 01/17/22 06:30: WBC 5.4, RBC 3.59 L, Hgb 10.1 L, Hct 29.7 L, MCV 82.6, MCH 28.2, MCHC 34.2, RDW 15.6, Plt Count 213, MPV 8.2, Neut % (Auto) 53.7, Lymph % (Auto) 35.7, [place] % (Auto) 5.9, Eos % (Auto) 4.1, Baso % (Auto) 0.6, Neut # (Auto) 2.9, Lymph # (Auto) 1.9, [place] # (Auto) 0.3, Eos # (Auto) 0.2, Baso # (Auto) 0.0 01/17/22 06:30: Sodium 139, Potassium 3.8, Chloride 109 H, Carbon Dioxide 21 L, Anion Gap 12.8, BUN 13, Creatinine 1.20 H, Estimated Creat Clear 56, Estimated GFR 46 L, Est GFR ( Amer) 56 L, Glucose 182 H, Calcium 8.6 I & O for Last 24 hours: Intake & Output 01/14/22 01/15/22 01/16/22 01/17/22 23:59 23:59 23:59 23:59 Intake Total 2816 / 2816 360 / 360 843 / 843 Output Total 925 / 2125 3380 / 3380 Balance 1891 / 691 -3020 / -3020 843 / 843 Weight 67.222 kg 67.188 kg 69 kg 68.175 kg Assessment and Plan (1) Horseshoe kidney Status: Acute Category: Medical Code(s): 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, fused and horseshoe kidney (2) Pyelonephritis Status: Acute Category: Medical Code(s): N12 - Tubulo-interstitial nephritis, not specified as acute or chronic (3) EDD (acute kidney injury) Status: Acute Category: Medical Code(s): N17.9 - Acute kidney failure, unspecified (4) Hydronephrosis Status: Acute Category: Medical Code(s): N13.30 - Unspecified hydronephrosis (5) Diabetes Status: Acute Category: Medical Code(s): E11.9 - Type 2 diabetes mellitus without complications (6) Hypertension Status: Acute Category: Medical Code(s): I10 - Essential (primary) hypertension The patient's infection will respond to the chosen ABx?: Yes Is the patient receiving the right drug, dose, and route?: Yes Could a more targeted ABx be ordered?: No (BLD CX (-)X2, WBC WNL, AFEBRILE.)
--- NOTE | 2022-01-17 12:09 | DIET.NUTRFU ---
RD saw patient today at breakfast, she was refusing to eat items sent. RD used the translater line to determine she wanted a strawberry glucerna. She claims she has been drinking them for calories missing in meals. Son is here foten and helps with menu selection, he was not here today, Glucerna is ordered on all trays, will notify kitchen of strawberry preference
--- NOTE | 2022-01-17 13:49 | PC.NURSE ---
Received report from Cassia Bailey at 1300. Assessed patient. Patient still complains of migraine pain and nausea. Phenergan had been given by Cassia at 1211. Patient helped to bathroom and back to bed.
--- NOTE | 2022-01-17 15:44 | PC.NURSE ---
on morning rounds relayed to tracie pizano that patient bp has remained high. systolic was 180s and higher. asked about starting a drip that may help with managing bp to goal systolic. no new order received at 1350 noted bp was 196/106 manually. notified tracie pizano who ordered vasotec 2.5mg iv once. patient has been noted to complain of headache and vomiting most of shift. notified md or this as well and medicated per oct.
[2022-01-17 16:26] LABS: POC Glucose,Bedside 286 (70-110)
[2022-01-17 16:26] LABS: POC Glucose,Bedside 123 (70-110)
--- NOTE | 2022-01-17 16:57 | PC.NURSE ---
Called report to , [phone], nurse busy and stated she would have to call back. Will attempt again.
--- NOTE | 2022-01-17 17:02 | PC.NURSE ---
Attempted to call pt's son. Patient's son did not answer. Left voicemail. Will call again.
--- NOTE | 2022-01-17 17:18 | PC.NURSE ---
Gave report to Krissy at . Will call ems
== END 2022-01-17 18:10 | disposition short-term general hospital (02) | DRG 690 ==
LOC: ER 20:46 → 2ND 21:06
PROVIDERS: Nurse Practitioner Family; Admitting Provider Emergency Medicine; Emergency Provider Emergency Medicine; PCP Physician Assistant; Visit Provider Emergency Medicine
DX: N10 Acute pyelonephritis (principal); E11.9 Type 2 diabetes mellitus without complications; E78.5 Hyperlipidemia, unspecified; N17.9 Acute kidney failure, unspecified; E86.0 Dehydration; I10 Essential (primary) hypertension; Q63.1 Lobulated, fused and horseshoe kidney; R56.9 Unspecified convulsions
CPT/HCPCS: 36415; 51702; 70450; 70496; 70498; 70551; 74176; 76770; 80048; 80053; 80305; 81001; 82140; 82962; 83605; 84145; 85025; 87040; 93005; 93306; 93976; 96361; 96374; 96376; 97162; 97166; 97530; 99284; 99285; C9803; J0696; J1953; J2405; Q9967; U0003; U0005

== ENCOUNTER 2022-02-05 13:04 | Emergency (ER) | payer OTHER, SELFPAY ==
--- NOTE | 2022-02-05 13:25 | XR_ITS ---
FINAL REPORT CLINICAL HISTORY: constipation FINDINGS: A single view of the abdomen was obtained. There is a nonobstructive bowel gas pattern. There are no abnormally dilated loops of small bowel. There is a large amount of retained stool. IMPRESSION: 1. Nonobstructive bowel gas pattern. 2. Large amount of retained stool consistent with constipation. Reviewed, Interpreted and Dictated by Jayme Partida III, MD Transcribed by Adelita Mittal Authenticated and [facility]
[2022-02-05 13:30] VITALS: BP 162/79; PULSE 94; RESP 16; TEMP 36.4; O2SAT 100; BMI 22.4
--- NOTE | 2022-02-05 14:23 | HMH.EDUTC ---
[facility] [place] Disposition Clinical Impression: Constipation Qualifiers: Constipation type: unspecified constipation type Qualified Code(s): K59.00 - Constipation, unspecified Disposition: Home, Self-Care Condition on Discharge: Good Instructions: Constipation, High-Fiber Diet, DI for Constipation Additional Instructions: Drink plenty of fluids. Take the medications as directed. Take the colace every day. Take the suppositories and miralax laxative daily as needed. Follow up with your regular doctor. GO TO THE ER FOR ANY WORSENING SYMPTOMS Prescriptions: Docusate Sodium [Colace] 100 mg PO DAILY #30 cap Transmission Status: Received by [facility] bisacodyL [Dulcolax 10mg Supp] 10 mg RC DAILYP PRN #10 supp PRN Reason: Constipation Transmission Status: Received by [facility] polyethylene glycoL 3350 [Miralax Powder] 17 gm PO DAILYP PRN #119 gm PRN Reason: Constipation Transmission Status: Received by [facility] Referrals: Michael Dai MD [Primary Care Provider] - Time of Disposition: 15:24 Medical Decision Making - Medical Records Medical records reviewed: No: I reviewed the patient's medical records. - Lauro Inquiry Pt receiving controlled substance: No Vital Signs: 02/05/22 13:30 02/05/22 15:25 Temperature 97.5 F L 97.5 F L Temperature Source Oral Pulse Rate 94 H Pulse Rate [Left] 94 H Respiratory Rate 16 16 Blood Pressure 162/79 H Blood Pressure [Right Arm] 162/79 H Blood Pressure Mean [Right Arm] 106 02 Sat by Pulse Oximetry 100 [facility] [place] HPI - General Stated complaint: constipated Time Seen by Provider: 02/05/22 13:30 Description of Symptoms (Recalled from Triage Doc. by RN): patient comes in today with complaints of constipation. she has been having symptoms for 5 days. HEENT Symptoms (Recalled from RN notes): No Resp Symptoms (Recalled from RN notes): No Skin Symptoms (Recalled from RN notes): No MS Symptoms (Recalled from RN notes): No Functional Status (Recalled from RN notes): wnl - History of Present Illness Provider Complaint: She states (via interpretor over ipad) that she has been constipated and not had a bowel movement for the past 5 days. She states that she is having severe rectal pain and she is also having some lower abdomen pain. - Related Data Home Medications Medication Instructions Recorded Confirmed Ferrous Sulfate 325 mg PO DAILY 12/17/21 01/13/22 Chlorthalidone 50 mg PO DAILY 12/18/21 01/13/22 Folic Acid [Folic Acid 1mg tablet] 1 mg PO DAILY 12/18/21 01/13/22 Omeprazole [Omeprazole 20mg 20 mg PO DAILY 12/18/21 01/13/22 Capsule] Pravastatin Sodium 10 mg PO HS 12/18/21 01/13/22 Pregabalin [Lyrica 75mg Cap] 75 mg PO HS 12/18/21 01/13/22 Sennosides [Natural Laxative] 8.6 mg PO DAILY 12/18/21 01/13/22 Insulin Glargine,Hum.rec.anlog 8 unit SQ HS 01/13/22 01/13/22 [Lantus Insulin 100units/mL 10mL vial] Metformin HCl 500 mg PO BID 01/13/22 01/13/22 Previous Rx's Medication Instructions Recorded Amlodipine Besylate [Norvasc 2.5mg 2.5 mg PO HS 30 Days #30 tab 01/15/22 Tab] lisinopriL [Lisinopril] 10 mg PO DAILY 30 Days #30 tab 01/15/22 pen needle, diabetic 32 gauge x See Rx Instructions .ROUTE #100 01/29/2210/16 each Docusate Sodium [Colace] 100 mg PO DAILY #30 cap 02/05/22 bisacodyL [Dulcolax 10mg Supp] 10 mg RC DAILYP PRN #10 supp 02/05/22 polyethylene glycoL 3350 [Miralax 17 gm PO DAILYP PRN #119 gm 02/05/22 Powder] Allergies Allergy/AdvReac Type Severity Reaction Status Date / Time No Known Allergies Allergy Verified 02/05/22 13:34 - Worker's Comp Is this a Worker's Comp case?: No H History - Hepatitis A Screen Attestation statement:: This patient has been screened for Hepatitis A risk factors. I have reviewed the patient's past medical history: Yes Medical History: Reports:: Diabetes Mellitus Type 2, Hyperlipidemia, Hypertension Denies:: Cancer, Diabetes Me
[2022-02-05 15:25] VITALS: BP 162/79; PULSE 94; RESP 16; TEMP 36.4
== END 2022-02-05 15:36 | disposition home or self-care (01) ==
PROVIDERS: Emergency Provider Nurse Practitioner Family; PCP Emergency Medicine
DX: K59.00 Constipation, unspecified (principal); K62.89 Other specified diseases of anus and rectum; R10.30 Lower abdominal pain, unspecified; E11.9 Type 2 diabetes mellitus without complications; Z79.4 Long term (current) use of insulin; Z79.84 Long term (current) use of oral hypoglycemic drugs; I10 Essential (primary) hypertension
CPT/HCPCS: 74018; 99212; G0463

== ENCOUNTER 2022-03-27 23:34 | Inpatient (IN) | payer OTHER, SELFPAY ==
[2022-03-28] VITALS (11 sets, daily range): BP systolic 138–185; BP diastolic 49–84; PULSE 75–87; RESP 16–18; TEMP 36.8–37.2; O2SAT 97–100; BMI 22.6; BMI 21.5
[2022-03-28 00:40] LABS: Influenza A, PCR Not Detected (NotDetected); Influenza B, PCR Not Detected (NotDetected)
[2022-03-28 01:11] LABS: Coronavirus 19, PCR Detected (NotDetected)
[2022-03-28 01:21] LABS: Basophils % 0.6 % (0.1-2.0); Eosinophils # 0.1 K/mm3 (0.0-0.4); Eosinophils % 2.1 % (0.1-12.0); Hematocrit 26.9 % (37.0-47.0); Hemoglobin 9.5 g/dL (12.2-16.2); Lymphocytes # 1.5 K/mm3 (0.7-4.5); Lymphocytes % 25.2 % (10-50); Mean Corpuscular HGB Conc 35.3 g/dL (31.8-35.4); Mean Corpuscular Hemoglobin 30.4 pg (27.0-31.2); Mean Corpuscular Volume 86.2 fl (81-99); Monocytes # 0.4 K/mm3 (0.1-1.0); Monocytes % 6.2 % (1.7-9.3); Platelet Count 315 K/mm3 (142-424); Red Blood Count 3.12 M/mm3 (4.20-5.40); Red Cell Distribution Width 14.3 % (11.5-17.5); White Blood Count 6.1 K/mm3 (4.8-10.8)
[2022-03-28 01:28] LABS: Alanine Aminotransferase 23 U/L (12-78); Albumin Level 3.8 g/dl (3.5-5.0); Albumin/Globulin Ratio 1.1 (1.1-1.8); Alkaline Phosphatase 156 U/L (38-126); Anion Gap 11.9 mEq/L (5-15); Aspartate Amino Transferase 34 U/L (14-36); Blood Urea Nitrogen 17 mg/dl (7-17); Carbon Dioxide 26 mmol/L (22.0-30.0); Chloride 84 mmol/L (98-107); Creatinine Clearance Estimated 42 mL/min (50-200); Estimated Glomerular Filt Rate 36 ml/min (>60); GFR (African American) 43 ML/MIN (>60); Globulin 3.4 g/dL (1.3-3.2); Glucose 193 mg/dl (74-100); Potassium 3.9 mmoL/L (3.5-5.1); Sodium 118 mmol/L (136-145); Total Protein,Serum 7.2 g/dl (6.3-8.2)
[2022-03-28 01:33] LABS: C-Reactive Protein 31.2 mg/L (0-4)
[2022-03-28 01:34] LABS: Bilirubin,Total < 0.1 mg/dl (0.2-1.3)
--- NOTE | 2022-03-28 01:50 | XR_ITS ---
PROCEDURE INFORMATION: Exam: XR Chest Exam date and time: 03/28/2022 1:47 AM Age: 56 years old Clinical indication: Condition or disease; Lung condition and disease; Pneumonia; Other: Covid TECHNIQUE: Imaging protocol: Radiologic exam of the chest. Views: 2 views. COMPARISON: CR XR CHEST PORTABLE 05/16/2021 8:53 PM FINDINGS: Lungs: Unremarkable. No consolidation. Pleural spaces: Unremarkable. No pleural effusion. No pneumothorax. Heart/Mediastinum: Unremarkable. No cardiomegaly. Bones/joints: Unremarkable. IMPRESSION: No acute findings.
--- NOTE | 2022-03-28 01:52 | PC.NURSE ---
Rechecked pt condition. No needs or complaints voiced.
--- NOTE | 2022-03-28 02:00 | PC.NURSE ---
Pt placed in isolation precautions
[2022-03-28 02:05] LABS: Erythrocyte Sedimentation Rate > 140 mm/hr (0-30)
--- NOTE | 2022-03-28 02:40 | HMH.EDNVD ---
Discharge Plan Disposition Patient Disposition: Admitted as Observation Chief Complaint: Nausea/Vomiting/Diarrhea Clinical Impressions Clinical Impression: COVID-19, Acute hyponatremia Discharge ED Provider: Michael Dai Nausea/Vomiting/Diarrhea HPI General Chief complaint: Nausea/Vomiting/Diarrhea Stated complaint: vomitng, coughing, exposure to covid Time Seen by Provider: 03/28/22 02:40 Mode of Arrival: Ambulatory Source of Information: Patient, Relative and Medical Record Limitations: No Limitations Description of Symptoms (Recalled from ER Triage Doc. by RN): PT EXPOSED TO COVID TWO DAYS AGO AND TODAY SHE HAS NAUSEA, SORE THROAT AND VOMITING AND WOULD LIKE TO BE TESTED FOR COVID. History of Present Illness HPI Narrative: exposure to covid-19 and has vomiting and feels weak - no rash and has some cough MD complaint: vomiting Onset (ago): day(s) Associated Abdominal Pain: No Context: sick contacts Associated symptoms: nausea/vomiting Related Data Home Medications Medication Instructions Recorded Confirmed ferrous sulfate 325 mg (65 mg 325 mg PO DAILY IRON SUPPLEMENT 12/17/21 03/28/22 iron) tablet chlorthalidone 50 mg tablet 50 mg PO DAILY Fluid 12/18/21 03/28/22 omeprazole 20 mg capsule,delayed 20 mg PO DAILY GERD 12/18/21 03/28/22 release pravastatin 10 mg tablet 10 mg PO HS Cholesterol 12/18/21 03/28/22 pregabalin 75 mg capsule 75 mg PO HS NEUROPATHY 12/18/21 03/28/22 insulin glargine 100 unit/mL 8 unit SQ HS Diabetes 01/13/22 03/28/22 subcutaneous solution docusate sodium 100 mg capsule 100 mg PO DAILY Diet supplement 03/28/22 03/28/22 pen needle, diabetic 32 gauge x 03/28/22 03/28/22 3/16 (Comfort EZ Pen Mercer) Previous Rx's Medication Instructions Recorded polyethylene glycol 3350 17 17 gm PO DAILYP PRN Constipation 02/05/22 gram/dose oral powder ##119 Allergies Allergy/AdvReac Type Severity Reaction Status Date / Time No Known Allergies Allergy Verified 02/05/22 13:34 PFSH PFSH Social History Smoking Status: Never smoker alcohol intake: current current occupational status: unemployed household members: children housing: house ROS Obtained: Yes Systems reviewed as appropriate & no additional complaints except as documented Constitutional Constitutional: Denies fever(s) ENT Ears, Nose, Mouth, and Throat: Reports dry mouth Gastrointestinal Gastrointestingal: Reports vomiting Physical Exam General General appearance: alert Head Head exam: normocephalic Eye Eye exam: Present PERRL and EOMI ENT ENT exam: Present mucous membranes dry Neck Neck exam: Present trachea midline Respiratory Respiratory exam: Present normal lung sounds bilaterally Cardiovascular Cardiovascular exam: Present regular rate, systolic murmur and +S4 Abdominal Exam Abdominal exam: Present soft; Absent tenderness Extremities Exam Extremities exam: Absent tenderness Neurological Exam Neurological exam: Present alert, oriented X3 and CN II-XII intact Psychiatric Psychiatric exam: Present normal affect Skin Skin exam: Absent rash Medical Decision Making Medical Records Medical records reviewed: Yes I reviewed the patient's medical records. Lauro Inquiry Pt receiving controlled substance: No Vital Signs: 03/28/22 00:45 03/28/22 01:30 03/28/22 02:00 Temperature 98.2 F 98.9 F Temperature Source Oral Oral Pulse Rate 87 81 Pulse Rate [Left Radial] 82 Respiratory Rate 16 16 Blood Pressure 176/77 H 185/84 H Blood Pressure [Right Arm] 141/70 H Blood Pressure Mean 117 Blood Pressure Mean [Right Arm] 93 Blood Pressure Source [Right Arm] Automatic Cuff Blood Pressure Position [Right Arm] Sitting 02 Sat by Pulse Oximetry 97 100 Oxygen Delivery Method Room Air Room Air 03/28/22 02:16 03/28/22 02:31 Temperature Temperature Source Pulse Rate 85 87 Pulse Rate [Left Radial] Respiratory Rate 17 17 Blood Pressure 160/70 H 171/66 H Blood Pres
[2022-03-28 02:48] LABS: Microscopic, Urine URINE MICROSCOPIC (MICROSCOPIC)
[2022-03-28 03:01] LABS: Appearance,Urine CLEAR (Clear); Bilirubin,Urine Negative (Negative); Blood, Urine 1+ (Negative); Color,Urine YELLOW (Yellow); Glucose,Urine (UA) TRACE (Negative); Ketones,Urine Negative (Negative); Leukocyte Esterase,Urine 1+ (Negative); Nitrate,Urine Negative (Negative); Protein,Urine 2+ (Negative); Urobilinogen,Urine 0.2 EU/dl (0.2)
--- NOTE | 2022-03-28 03:09 | PC.NURSE ---
Pt ambulatory to bathroom without assistance. No other needs or complaints voiced.
[2022-03-28 03:15] LABS: Free T4 (Free Thyroxine) 2.38 ng/dl (0.78-2.19)
[2022-03-28 03:16] LABS: Bacteria,Urine 2+ /lpf; RBC,Urine Occasional #/hpf (0-3)
[2022-03-28 03:29] LABS: Thyroid Stimulating Hormone 1.26 uIU/mL (0.465-4.68)
--- NOTE | 2022-03-28 03:48 | PC.NURSE ---
PT/FAMILY AWARE OF PLAN TO ADMIT.
--- NOTE | 2022-03-28 04:35 | PC.NURSE ---
PT ARRIVED VIA W/C TO [facility] @ 3008
--- NOTE | 2022-03-28 05:43 | PC.NURSE ---
Patient admitted to floor. Patient tolerating RA with sats above 90%. Patient is Bulgarian speaking and poor historian. Son present to help with admission. Patient receiving fluids per MAR. Patient in Covid precautions.
[2022-03-28 05:58] LABS: POC Glucose,Bedside 192 (70-110)
--- NOTE | 2022-03-28 07:24 | P.CONPHA_ITS ---
[facility] Pharmacy VTE Monitoring Patient Demographics Admission date: 03/28/22 Report Date: 03/28/22 Time: 07:24 Patient Allergies No Known Allergies Allergy (Verified 02/05/22 13:34) Height: 1.68 m Weight: 60.781 kg Current Active Problems (Updated 03/28/22 @ 04:51 by Lisa Junior RN) COVID-19 (Acute) Acute hyponatremia (Acute) VTE Risk Labs: VTE Related Lab Results Hgb 9.5 g/dL (12.2-16.2) L 03/28/22 01:12 Hct 26.9 % (37.0-47.0) L 03/28/22 01:12 Plt Count 315 K/mm3 (142-424) 03/28/22 01:12 BUN 17 mg/dl (7-17) 03/28/22 01:12 Creatinine 1.50 mg/dl (0.52-1.04) H 03/28/22 01:12 Estimated Creat Clear 42 mL/min (50-200) 03/28/22 01:12 Was VTE Risk Assessment Performed: Yes VTE Score: 3 VTE Risk Level: Low Risk Prophylaxis VTE Prophylaxis Ordered?: Yes Types of VTE Prophylaxis: TEDS Knee High Location of Applied Device: Bilateral Lower Extremeties
[2022-03-28 07:26] LABS: Basophils % 0.2 % (0.1-2.0); Eosinophils # 0.1 K/mm3 (0.0-0.4); Eosinophils % 1.7 % (0.1-12.0); Hematocrit 24.8 % (37.0-47.0); Lymphocytes # 1.4 K/mm3 (0.7-4.5); Lymphocytes % 24.6 % (10-50); Mean Corpuscular HGB Conc 33.8 g/dL (31.8-35.4); Mean Corpuscular Hemoglobin 28.3 pg (27.0-31.2); Mean Corpuscular Volume 83.5 fl (81-99); Mean Platelet Volume 7.9 fl (7.4-10.4); Monocytes # 0.4 K/mm3 (0.1-1.0); Monocytes % 6.8 % (1.7-9.3); Neutrophils # 3.8 K/mm3 (1.8-7.8); Neutrophils % 66.8 % (37.0-80.0); Platelet Count 262 K/mm3 (142-424); Red Blood Count 2.97 M/mm3 (4.20-5.40); Red Cell Distribution Width 14.3 % (11.5-17.5); White Blood Count 5.7 K/mm3 (4.8-10.8)
[2022-03-28 07:30] LABS: Anion Gap 8.6 mEq/L (5-15); Blood Urea Nitrogen 16 mg/dl (7-17); Calcium 8.3 mg/dl (8.4-10.2); Carbon Dioxide 24 mmol/L (22.0-30.0); Chloride 92 mmol/L (98-107); Creatinine Clearance Estimated 50 mL/min (50-200); Estimated Glomerular Filt Rate 46 ml/min (>60); GFR (African American) 56 ML/MIN (>60); Glucose 137 mg/dl (74-100); Magnesium 1.3 mg/dl (1.6-2.3); Potassium 3.6 mmoL/L (3.5-5.1); Sodium 121 mmol/L (136-145)
[2022-03-28 07:33] LABS: Hemoglobin 8.4 g/dL (12.2-16.2)
--- NOTE | 2022-03-28 09:06 | PC.NURSE ---
courtesy tech round: Assisted pt to restroom and back to bed. Pt is comfortable and has call light within reach. No further requests at this time.
--- NOTE | 2022-03-28 09:49 | EXP.PULM.CON ---
History of Present Illness Chief complaint: COVID-19 pneumonia History of present illness: Ms. Chang 56-year-old Nigerian-speaking female, history obtained from the family, received COVID-19 vaccinations, presented to the hospital complaining of abdominal symptoms including nausea vomiting and diarrhea. Patient grandson was recently diagnosed with COVID-19 pneumonia. Denies any prior respiratory complaints. Denies any prior smoking history. Minimal respiratory symptoms, denies any chest pain. Shortness of breath worsens with exertion. Relieved with taking rest. PFSH [facility] Medical History (Updated 03/28/22 @ 12:11 by Oc Colon MD) Diabetes mellitus, type 2 Hypertension Social History (Updated 03/28/22 @ 04:01 by Michael Dai MD) Smoking Status: Never smoker alcohol intake: current current occupational status: unemployed Travel in the last 8 weeks: None household members: children housing: house Review of Systems Review of Systems Review of systems:: pertinent systems reviewed and negative unless documented below Constitutional Constitutional: Reports as per HPI, Reports fatigue, Denies malaise and Denies night sweats Eyes Eyes: Denies dry eyes and Denies exophthalmos ENT Ears, Nose, Mouth, and Throat: Denies dry mouth and Denies dysphagia *Cardiovascular Cardiovascular: Denies chest pain, Denies chest pain at rest, Reports dyspnea on exertion and Reports rapid heart rate *Respiratory Respiratory: Reports chest congestion, Reports cough, Reports dyspnea on exertion and Denies excessive phlegm production *Gastrointestinal Gastrointestinal: Reports diarrhea, Denies dysphagia and Reports vomiting *Musculoskeletal Musculoskeletal: Reports muscle weakness, Reports myalgias and Denies tingling *Neurologic Neurologic: Denies tingling and Denies tremor(s) Psychiatric Psychiatric: Denies homicidal ideation and Denies suicidal ideation Endocrine Endocrine: Reports fatigue and Denies heat intolerance Pulmonology Exam Inpatient Constitutional: mild distress, cooperative, combative or agitated Head: normocephalic, atraumatic and cushingoid faces ENT: normal oropharynx and mucous membranes moist Neck: normal inspection and trachea midline Respiratory: accessory muscle use, CTA bilaterally, respiratory distress, rhonchi, wheezes, crackles or able to speak in complete sentences Cardiac: S1/S2 and radial pulses present GI: soft and guarding Rectal (female): deferred (female): deferred Skin: intact, dry or pallor Neuro: alert, awake and oriented x 3 Extremities: edema, clubbing or cyanosis Psychiatric: normal affect and cooperative Meds Home Medications and Allergies Home Medications Medication Instructions Recorded Confirmed Type chlorthalidone 50 mg tablet 50 mg PO DAILY Fluid 12/18/21 03/28/22 History insulin glargine 100 unit/mL 8 unit SQ HS Diabetes 01/13/22 03/28/22 History subcutaneous solution amlodipine 2.5 mg tablet 2.5 mg PO HS Hypertension 03/28/22 03/28/22 History aspirin 81 mg tablet,delayed 81 mg PO DAILY HEART HEALTH 03/28/22 03/28/22 History release atorvastatin 40 mg tablet 40 mg PO HS Cholesterol 03/28/22 03/28/22 History docusate sodium 100 mg capsule 100 mg PO DAILY Diet supplement 03/28/22 03/28/22 History linaclotide 145 mcg capsule 145 mcg PO DAILY CONSTIPATION 03/28/22 03/28/22 History (Linzess) lisinopril 10 mg tablet (Zestril) 10 mg PO DAILY Hypertension 03/28/22 03/28/22 History ondansetron HCl 4 mg tablet 4 mg PO Q8HP PRN Nausea And 03/28/22 03/28/22 History Vomiting pantoprazole 40 mg tablet,delayed 40 mg PO DAILY GERD 03/28/22 03/28/22 History release zolpidem 5 mg tablet 5 mg PO HSP PRN Insomnia 03/28/22 03/28/22 History New Prescriptions to Start Prescriptions: Allergies Allergy/AdvReac Type Severity Reaction Status Date / Time No Known Allergies Allergy Verified 02/05/22 13:34 Results Laboratory Findings CBC and BMP: 03/28/22 07:05
--- NOTE | 2022-03-28 09:57 | EXP.HP ---
History of Present Illness *Admission Date: 03/28/22 *Reason for consult:: covid-19/hyponatremia *History of present illness: this patient presented to [facility] ed PT EXPOSED TO COVID TWO DAYS AGO AND TODAY SHE HAS NAUSEA, SORE THROAT AND VOMITING AND WOULD LIKE TO BE TESTED FOR COVID. exposure to covid-19 and has vomiting? and feels weak - no rash and has some cough MD complaint: vomiting pt was positive with covid-19 and had sig hyponatremia and was admitted [facility] Medical History (Updated 03/28/22 @ 12:11 by Oc Colon MD) Diabetes mellitus, type 2 Hypertension Social History (Updated 03/28/22 @ 04:01 by Michael Dai MD) Smoking Status: Never smoker alcohol intake: current current occupational status: unemployed Travel in the last 8 weeks: None household members: children housing: house Review of Systems Review of Systems Review of systems:: pertinent systems reviewed and negative unless documented below Meds Home Medications and Allergies Home Medications Medication Instructions Recorded Confirmed Type chlorthalidone 50 mg tablet 50 mg PO DAILY Fluid 12/18/21 03/28/22 History insulin glargine 100 unit/mL 8 unit SQ HS Diabetes 01/13/22 03/28/22 History subcutaneous solution amlodipine 2.5 mg tablet 2.5 mg PO HS Hypertension 03/28/22 03/28/22 History aspirin 81 mg tablet,delayed 81 mg PO DAILY HEART HEALTH 03/28/22 03/28/22 History release atorvastatin 40 mg tablet 40 mg PO HS Cholesterol 03/28/22 03/28/22 History docusate sodium 100 mg capsule 100 mg PO DAILY Diet supplement 03/28/22 03/28/22 History linaclotide 145 mcg capsule 145 mcg PO DAILY CONSTIPATION 03/28/22 03/28/22 History (Linzess) lisinopril 10 mg tablet (Zestril) 10 mg PO DAILY Hypertension 03/28/22 03/28/22 History ondansetron HCl 4 mg tablet 4 mg PO Q8HP PRN Nausea And 03/28/22 03/28/22 History Vomiting pantoprazole 40 mg tablet,delayed 40 mg PO DAILY GERD 03/28/22 03/28/22 History release zolpidem 5 mg tablet 5 mg PO HSP PRN Insomnia 03/28/22 03/28/22 History New Prescriptions to Start Prescriptions: Allergies Allergy/AdvReac Type Severity Reaction Status Date / Time No Known Allergies Allergy Verified 02/05/22 13:34 Exam Data for Last 24 hours Vital signs and Labs for Last 24 Hours: Temp Pulse Resp BP Pulse Ox 98.5 F 77 17 138/49 L 99 03/28/22 04:35 03/28/22 04:35 03/28/22 04:35 03/28/22 04:35 03/28/22 04:35 Laboratory Results - last 24 hr 03/28/22 00:37: SARS-CoV-2 (PCR) Detected A, Influenza A Untype (PCR) Not detected, Influenza Type B (PCR) Not detected 03/28/22 01:12: WBC 6.1, RBC 3.12 L, Hgb 9.5 L, Hct 26.9 L, MCV 86.2, MCH 30.4, MCHC 35.3, RDW 14.3, Plt Count 315, MPV 8.0, Neut % (Auto) 66.0, Lymph % (Auto) 25.2, Bertie % (Auto) 6.2, Eos % (Auto) 2.1, Baso % (Auto) 0.6, Neut # (Auto) 4.0, Lymph # (Auto) 1.5, Bertie # (Auto) 0.4, Eos # (Auto) 0.1, Baso # (Auto) 0.0, ESR > 140 H 03/28/22 01:12: Sodium 118 L, Potassium 3.9, Chloride 84 L, Carbon Dioxide 26, Anion Gap 11.9, BUN 17, Creatinine 1.50 H, Estimated Creat Clear 42, Estimated GFR 36 L, Est GFR ( Amer) 43 L, Glucose 193 H, Calcium 9.0, Total Bilirubin < 0.1 L, AST 34, ALT 23, Alkaline Phosphatase 156 H, C-Reactive Protein 31.2 H, Total Protein 7.2, Albumin 3.8, Globulin 3.4 H, Albumin/Globulin Ratio 1.1, Procalcitonin 0.120 03/28/22 01:12: Free T4 2.38 H 03/28/22 01:12: TSH 1.26 03/28/22 02:14: Urine Color Yellow, Urine Appearance Clear, Urine pH 6.0, Ur Specific [employer] 1.010, Urine Protein 2+, Urine Glucose (UA) Trace, Urine Ketones Negative, Urine Blood 1+, Urine Nitrate Negative, Urine Bilirubin Negative, Urine Urobilinogen 0.2, Ur Leukocyte Esterase 1+ A, Urine RBC Occasional, Urine WBC 3-5, Urine Bacteria 2+ 03/28/22 05:03: POC Glucose 192 H 03/28/22 07:05: WBC 5.7, RBC 2.97 L, Hgb 8.4 L D, Hct 24.8 L, MCV 83.5, MCH 28.3, MCHC 33.8, RDW 14.3, Plt Count 262, MPV 7.9, Neut % (Auto) 66.8, Lymph % (Auto) 24.6, Mo
[2022-03-28 11:58] LABS: POC Glucose,Bedside 188 (70-110)
--- NOTE | 2022-03-28 12:09 | HMH.PHAINT1 ---
Pharmacy Intervention Comments: MEDICATION RECONCILIATION COMPLETED ON PATIENT USING EXTERNAL FILL HISTORY FROM PHARMACY, DISCHARGE SUMMARY FROM PREVIOUS ADMISSION, AND LARISSA REPORT. -RAMSES PALOMARESD
[2022-03-28 15:39] LABS: Anion Gap 11.8 mEq/L (5-15); Blood Urea Nitrogen 14 mg/dl (7-17); Calcium 8.4 mg/dl (8.4-10.2); Carbon Dioxide 23 mmol/L (22.0-30.0); Chloride 93 mmol/L (98-107); Creatinine Clearance Estimated 46 mL/min (50-200); Estimated Glomerular Filt Rate 42 ml/min (>60); GFR (African American) 51 ML/MIN (>60); Glucose 155 mg/dl (74-100); Potassium 3.8 mmoL/L (3.5-5.1); Sodium 124 mmol/L (136-145)
--- NOTE | 2022-03-28 16:41 | PC.NURSE ---
aox4, tolerating ra well with no complaints. has ambulated to bathroom independently. fluids and abx infusing per order.
[2022-03-28 17:09] LABS: POC Glucose,Bedside 209 (70-110)
[2022-03-29] VITALS: BP 153/73; PULSE 86; RESP 17; TEMP 37.1; O2SAT 98
[2022-03-29 04:00] VITALS: BP 150/70; PULSE 84; RESP 18; TEMP 36.9; O2SAT 99
--- NOTE | 2022-03-29 04:48 | PC.NURSE ---
Patient a&o x4. Patient tolerating RA with sats above 90%. Fluids and ABX infusing per mar. Patient complaints of aches all over and asking for something to help her rest. Paged Malaika who orders one time dose of Tylenol 3. Patient rested well after administration.
[2022-03-29 05:00] VITALS: BMI 22.6
[2022-03-29 06:06] LABS: POC Glucose,Bedside 198 (70-110)
[2022-03-29 08:00] VITALS: BP 185/91; PULSE 88; TEMP 36.9; O2SAT 100
--- NOTE | 2022-03-29 09:53 | EXP.ACUTE.PN ---
Subjective *Date: 03/30/22 *Time: 11:20 Interval history: doing better this am but still with low na and weakness but still not at baseline Medical Exam Vital signs and Labs for Last 24 Hours: Temp Pulse Resp BP Pulse Ox 98.5 F 88 18 185/91 H 100 03/29/22 08:00 03/29/22 08:00 03/29/22 04:00 03/29/22 08:00 03/29/22 08:00 Laboratory Results - last 24 hr 03/28/22 11:44: POC Glucose 188 H 03/28/22 15:15: Sodium 124 L, Potassium 3.8, Chloride 93 L, Carbon Dioxide 23, Anion Gap 11.8, BUN 14, Creatinine 1.30 H, Estimated Creat Clear 46, Estimated GFR 42 L, Est GFR ( Amer) 51 L, Glucose 155 H, Calcium 8.4 03/28/22 16:56: POC Glucose 209 H 03/28/22 21:15: POC Glucose 198 H I & O for Labs for Last 24 Hours: Intake & Output 03/26/22 03/27/22 03/28/22 03/29/22 11:59 11:59 11:59 11:59 Intake Total 1000 / 1000 2268 / 2268 Output Total 200 / 200 0 / 0 Balance 800 / 800 2268 / 2268 Weight 134 lb 141 lb Microbiology Reports for the Last 24 Hours: Microbiology 03/28/22 02:14 Urine,Clean Catch Urine Culture - Preliminary Head: atraumatic Eyes: as per HPI ENT: mucous membranes dry Neck: trachea midline Respiratory: decreased breath sounds Cardiac: Reg Rate and Rhythm and Systolic Murmur GI: soft Extremities: calf tenderness Skin: dry Neuro: Cranial Nerve 2-12 Intact Assessment and Plan *Assessment and plan (1) Acute hyponatremia: Status: Acute Category: Medical Code(s): E87.1 - Hypo-osmolality and hyponatremia Plan pt with low na and will need continued treatment Assessment and plan all Dx Plan of Treatment: #COVID-19 pneumonia: 56-year-old female. No significant prior respiratory complaints. No significant smoking history. Received COVID-19 vaccine as per patient's family COVID-19 serology positive. On room air saturating 99% and above. Chest x-ray clear with no acute pulmonary infiltrates. Labs personally reviewed, CHEM panel abnormal noted to have hyponatremia with serum at 118 admission, now at 121. Chest x-ray personally reviewed, no acute pulmonary infiltrate/nodules noted. Faint lower lobe infiltrates noted On chlorthalidone. Chest x-ray clear. Patient does not appear to be in any respiratory distress. Auscultation bilaterally slightly diminished breath sounds with no significant wheezing. Saturating 98 to 99% on room air. Plan: -Albuterol every 6 hours as needed -Doxycycline 100 mg twice daily x5 days -We will hold off on initiating any COVID-specific antiviral treatment at this point of time. -Regarding patient's hyponatremia, consider performing serum osmolality urine and sodium to further delineate the etiology. Likely appear to be from hypovolemic hyponatremia. Maintenance fluids with normal saline volume repletion. The patient's infection will respond to the chosen ABx?: Yes Is the patient receiving the right drug, dose, and route?: Yes Could a more targeted ABx be ordered?: No
[2022-03-29 10:44] LABS: Basophils % 0.3 % (0.1-2.0); Eosinophils # 0.1 K/mm3 (0.0-0.4); Eosinophils % 1.9 % (0.1-12.0); Hematocrit 27.7 % (37.0-47.0); Hemoglobin 9.2 g/dL (12.2-16.2); Lymphocytes # 1.8 K/mm3 (0.7-4.5); Lymphocytes % 39.6 % (10-50); Mean Corpuscular HGB Conc 33.2 g/dL (31.8-35.4); Mean Corpuscular Hemoglobin 28.2 pg (27.0-31.2); Mean Corpuscular Volume 84.9 fl (81-99); Mean Platelet Volume 7.4 fl (7.4-10.4); Monocytes # 0.3 K/mm3 (0.1-1.0); Monocytes % 7.1 % (1.7-9.3); Neutrophils # 2.4 K/mm3 (1.8-7.8); Platelet Count 380 K/mm3 (142-424); Red Blood Count 3.26 M/mm3 (4.20-5.40); Red Cell Distribution Width 14.4 % (11.5-17.5); White Blood Count 4.6 K/mm3 (4.8-10.8)
[2022-03-29 10:55] LABS: Alanine Aminotransferase 18 U/L (12-78); Albumin Level 3.2 g/dl (3.5-5.0); Alkaline Phosphatase 125 U/L (38-126); Anion Gap 9.5 mEq/L (5-15); Aspartate Amino Transferase 27 U/L (14-36); Blood Urea Nitrogen 8 mg/dl (7-17); Calcium 8.7 mg/dl (8.4-10.2); Carbon Dioxide 24 mmol/L (22.0-30.0); Chloride 107 mmol/L (98-107); Creatinine Clearance Estimated 58 mL/min (50-200); Estimated Glomerular Filt Rate 51 ml/min (>60); GFR (African American) 62 ML/MIN (>60); Globulin 3.1 g/dL (1.3-3.2); Glucose 125 mg/dl (74-100); Potassium 3.5 mmoL/L (3.5-5.1); Sodium 137 mmol/L (136-145); Total Protein,Serum 6.3 g/dl (6.3-8.2)
[2022-03-29 11:03] LABS: Bilirubin,Total < 0.1 mg/dl (0.2-1.3)
[2022-03-29 12:00] VITALS: BP 188/81; PULSE 94; RESP 16; TEMP 36.8; O2SAT 99
[2022-03-29 16:00] VITALS: BP 187/78; PULSE 92; RESP 17; TEMP 37; O2SAT 99
[2022-03-29 18:11] LABS: POC Glucose,Bedside 292 (70-110)
[2022-03-29 20:00] VITALS: BP 137/68; PULSE 84; RESP 17; TEMP 36.9; O2SAT 95
[2022-03-29 23:03] LABS: POC Glucose,Bedside 137 (70-110)
[2022-03-30] VITALS: BP 191/81; PULSE 85; RESP 18; TEMP 36.7; O2SAT 98
[2022-03-30 00:53] VITALS: BP 190/78
[2022-03-30 04:00] VITALS: BP 194/83; PULSE 81; RESP 17; TEMP 36.9; O2SAT 98
[2022-03-30 05:00] VITALS: BP 180/70; BMI 21.4
--- NOTE | 2022-03-30 05:21 | PC.NURSE ---
Addendum entered by Sheba Marcelino RN 03/30/22 05:49: Pt had some elevated BPs this shift. States she normally takes BP meds, but ran out. Outside pharmacy told her to follow up with her doctor for a new script. Original Note: Pt alert and oriented x 4. No changes since previous assessment. Pt c/o of pain and nausea once, thus far during shift. Medicated per OCT w/ favorable results. Lungs CTA, remains on RA with O2 sats > 95%. BS active x 4. No edema noted. IV infusing per order without issue. Maintaining airborne/contact precautions. Pt is independent. No needs voiced at this time. Call light in reach.
[2022-03-30 08:00] VITALS: BP 176/79; PULSE 84; RESP 16; TEMP 36.7; O2SAT 98
[2022-03-30 08:56] LABS: Basophils % 0.5 % (0.1-2.0); Eosinophils # 0.1 K/mm3 (0.0-0.4); Eosinophils % 1.7 % (0.1-12.0); Hematocrit 26.2 % (37.0-47.0); Hemoglobin 8.5 g/dL (12.2-16.2); Lymphocytes % 38.7 % (10-50); Mean Corpuscular HGB Conc 32.5 g/dL (31.8-35.4); Mean Corpuscular Hemoglobin 28.4 pg (27.0-31.2); Mean Corpuscular Volume 87.4 fl (81-99); Mean Platelet Volume 7.7 fl (7.4-10.4); Monocytes # 0.4 K/mm3 (0.1-1.0); Monocytes % 6.9 % (1.7-9.3); Neutrophils # 2.7 K/mm3 (1.8-7.8); Neutrophils % 52.1 % (37.0-80.0); Platelet Count 339 K/mm3 (142-424); Red Cell Distribution Width 14.5 % (11.5-17.5); White Blood Count 5.2 K/mm3 (4.8-10.8)
[2022-03-30 09:12] LABS: Alanine Aminotransferase 15 U/L (12-78); Alkaline Phosphatase 114 U/L (38-126); Anion Gap 6.2 mEq/L (5-15); Aspartate Amino Transferase 29 U/L (14-36); Blood Urea Nitrogen 9 mg/dl (7-17); Calcium 8.3 mg/dl (8.4-10.2); Carbon Dioxide 24 mmol/L (22.0-30.0); Chloride 110 mmol/L (98-107); Creatinine Clearance Estimated 60 mL/min (50-200); Estimated Glomerular Filt Rate 57 ml/min (>60); GFR (African American) 69 ML/MIN (>60); Globulin 2.9 g/dL (1.3-3.2); Glucose 142 mg/dl (74-100); Potassium 3.2 mmoL/L (3.5-5.1); Sodium 137 mmol/L (136-145); Total Protein,Serum 5.9 g/dl (6.3-8.2)
[2022-03-30 09:18] LABS: Bilirubin,Total < 0.1 mg/dl (0.2-1.3)
--- NOTE | 2022-03-30 09:38 | PC.NURSE ---
courtesy tech cindy: Pt is resting and has voiced no further requests at this time
--- NOTE | 2022-03-30 11:29 | EXP.DC.SUM ---
General Admission date:: 03/28/22 Discharge date: 03/30/22 HPI HPI HPI: this patient presented to [facility] ed PT EXPOSED TO COVID TWO DAYS AGO AND TODAY SHE HAS NAUSEA, SORE THROAT AND VOMITING AND WOULD LIKE TO BE TESTED FOR COVID. exposure to covid-19 and has vomiting? and feels weak - no rash and has some cough MD complaint: vomiting pt was positive with covid-19 and had sig hyponatremia and was admitted Hospital Course Hospital Course Hospital Course: pt has responded well to ivf and sodium has stabilized and has been stable resp status with covid-19 - vital signs stable and chi diet - Exam Data for Last 24 hours Vital signs and Labs for Last 24 Hours: Temp Pulse Resp BP Pulse Ox 98.1 F 84 16 176/79 H 98 03/30/22 08:00 03/30/22 08:00 03/30/22 08:00 03/30/22 08:00 03/30/22 08:00 Laboratory Results - last 24 hr 03/28/22 02:14: Urine Color Yellow, Urine Appearance Clear, Urine pH 6.0, Ur Specific [place] 1.010, Urine Protein 2+, Urine Glucose (UA) Trace, Urine Ketones Negative, Urine Blood 1+, Urine Nitrate Negative, Urine Bilirubin Negative, Urine Urobilinogen 0.2, Ur Leukocyte Esterase 1+ A, Urine RBC Occasional, Urine WBC 3-5, Urine Bacteria 2+ 03/29/22 17:18: POC Glucose 292 H 03/29/22 20:02: POC Glucose 137 H 03/30/22 07:55: WBC 5.2, RBC 3.00 L, Hgb 8.5 L, Hct 26.2 L, MCV 87.4, MCH 28.4, MCHC 32.5, RDW 14.5, Plt Count 339, MPV 7.7, Neut % (Auto) 52.1, Lymph % (Auto) 38.7, [place] % (Auto) 6.9, Eos % (Auto) 1.7, Baso % (Auto) 0.5, Neut # (Auto) 2.7, Lymph # (Auto) 2.0, [place] # (Auto) 0.4, Eos # (Auto) 0.1, Baso # (Auto) 0.0 03/30/22 07:55: Sodium 137, Potassium 3.2 L, Chloride 110 H, Carbon Dioxide 24, Anion Gap 6.2, BUN 9, Creatinine 1.00, Estimated Creat Clear 60, Estimated GFR 57 L, Est GFR ( Amer) 69, Glucose 142 H, Calcium 8.3 L, Total Bilirubin < 0.1 L, AST 29, ALT 15, Alkaline Phosphatase 114, Total Protein 5.9 L, Albumin 3.0 L, Globulin 2.9, Albumin/Globulin Ratio 1.0 L I & O for Last 24 hours: Intake & Output 03/27/22 03/28/22 03/29/22 03/30/22 11:59 11:59 11:59 11:59 Intake Total 1000 / 1000 2388 / 2388 2403 / 2403 Output Total 200 / 200 200 / 400 700 / 700 Balance 800 / 800 2188 / 1988 1703 / 1703 Weight 134 lb 141 lb 133 lb 3 oz Microbiology Reports for the Last 24 Hours: Microbiology 03/28/22 02:14 Urine,Clean Catch Urine Culture - Preliminary Gram Negative Rods Gram Negative Rods#2 Constitutional Constitutional: no acute distress *Routine HEENT Exam Head: Present normocephalic Eye: Present EOMI and PERRL ENT: Present mucous membranes moist *Routine Neck Exam Neck: Absent JVD *Routine Respiratory Exam Respiratory: Present CTA bilaterally *Routine Cardiovascular Exam Cardiovascular: Present RRR and murmur *Routine Abdominal Exam Abdominal: Present soft *Routine Rectal Exam Comments: deferred *Routine Exam Comments: deferred *Routine Extremities Exam Extremities: Absent calf tenderness *Routine Skin Exam Skin: Absent erythema *Routine Neurological Exam Neurological: Present alert, oriented X3 and CN II-XII intact Routine Psychiatric Exam Psychiatric: Present cooperative Results Data Completed and Pending Labs on day of discharge: Labs from last 24 hours 03/30/22 03/30/22 03/29/22 07:55 07:55 20:02 WBC 5.2 RBC 3.00 L Hgb 8.5 L Hct 26.2 L MCV 87.4 MCH 28.4 MCHC 32.5 RDW 14.5 Plt Count 339 MPV 7.7 Neut % (Auto) 52.1 Lymph % (Auto) 38.7 [place] % (Auto) 6.9 Eos % (Auto) 1.7 Baso % (Auto) 0.5 Neut # (Auto) 2.7 Lymph # (Auto) 2.0 [place]ruff # (Auto) 0.4 Eos # (Auto) 0.1 Baso # (Auto) 0.0 Sodium 137 Potassium 3.2 L Chloride 110 H Carbon Dioxide 24 Anion Gap 6.2 BUN 9 Creatinine 1.00 Estimated Creat Clear 60 Estimated GFR 57 L Est GFR ( Amer) 69 Glucose 142 H POC Glucose 137 H Calciu
[2022-03-30 12:09] LABS: POC Glucose,Bedside 162 (70-110)
--- NOTE | 2022-03-30 12:24 | P.CONPHA_ITS ---
Pharmacy Intervention Comments: DISCHARGE MEDICATION COUNSELING PROVIDED TO PATIENT'S SON SHE WAS ASLEEP, HANDLES HER MEDICATIONS, AND PRIMARILY SPEAKS ICELANDIC. DISCUSSED SHORT-COURSE L[facility] THERAPY (TAKE DAILY, WITH FOOD TO CUT BACK ON GI UPSET, RARE RISK OF TENDON RUPTURE). ALSO LET SON KNOW THE PRESCRIPTION WAS SENT TO [facility] IN [facility] SINCE CLINIC PHARMACY IS CLOSED TODAY. PATIENT'S SON HAD NO QUESTIONS.
--- NOTE | 2022-03-30 12:24 | HMH.PHAINT1 ---
Pharmacy Intervention Comments: DISCHARGE MEDICATION COUNSELING PROVIDED TO PATIENT'S SON SHE WAS ASLEEP, HANDLES HER MEDICATIONS, AND PRIMARILY SPEAKS SLOVENIAN. DISCUSSED SHORT-COURSE LEVAQUIN THERAPY (TAKE DAILY, WITH FOOD TO CUT BACK ON GI UPSET, RARE RISK OF TENDON RUPTURE). ALSO LET SON KNOW THE PRESCRIPTION WAS SENT TO [facility] SINCE CLINIC PHARMACY IS CLOSED TODAY. PATIENT'S SON HAD NO QUESTIONS.
--- NOTE | 2022-04-01 14:20 | CARE MANAGER ---
Spoke with patient son for post-discharge phone interview, he states that she is dong well and has no issues. She will follow-up as ordered.
== END 2022-03-30 13:23 | disposition home or self-care (01) | DRG 177 ==
LOC: ER 03-28 00:35 → 2ND 03-28 04:01
PROVIDERS: Admitting Provider Internal Medicine Adolescent Medicine; Emergency Provider Emergency Medicine; PCP Emergency Medicine; Visit Provider Emergency Medicine
DX: U07.1 COVID-19 (principal); J12.82 Pneumonia due to coronavirus disease 2019; E87.1 Hypo-osmolality and hyponatremia; Z79.4 Long term (current) use of insulin; Z79.899 Other long term (current) drug therapy; E11.9 Type 2 diabetes mellitus without complications; I10 Essential (primary) hypertension
CPT/HCPCS: 36415; 71046; 80048; 80053; 81001; 82962; 83735; 84145; 84439; 84443; 85025; 85651; 86140; 87086; 87088; 87186; 99285; C9803; J0696; J2405; U0003; U0005